=== PATIENT | male | born 1965 | race Caucasian/White ===

== ENCOUNTER 2020-01-28 13:43 | Inpatient (IN) | payer OTHER ==
[~2020-01-28] VITALS: Ht 177.8 cm; Wt 72.1 kg
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
[2020-01-28] MEDS ORDERED: MORPHINE SULFATE INJ 2 MG/ML DISP.SYRIN ONE (14:54)
[2020-01-28] MEDS ORDERED: MORPHINE SULFATE INJ 4 MG/ML DISP.SYRIN ONE (14:54)
[2020-01-28] MEDS ORDERED: MORPHINE SULFATE INJ 2 MG/ML DISP.SYRIN IM ONE (15:00)
[2020-01-28 15:56] LABS: BASOPHILS % (AUTO) 0.4 % (0.0-2.0); EOSINOPHILS % (AUTO) 1.5 % (0.0-6.0); HEMATOCRIT 41 % (39-51); HEMOGLOBIN 13.4 g/dL (13.5-17.5); LYMPHOCYTES # (AUTO) 0.9 /CMM (0.8-4.8); LYMPHOCYTES % (AUTO) 10.2 % (20.0-44.0); MEAN CORPUSCULAR HGB CONC 33 g/dl (31.0-36.0); MEAN CORPUSCULAR VOLUME 88 fL (80-96); MONOCYTES # (AUTO) 0.4 /CMM (0.1-1.30); MONOCYTES % (AUTO) 4.8 % (2.0-12.0); NEUTROPHILS # (AUTO) 7.2 /CMM (1.8-8.9); NEUTROPHILS % (AUTO) 83.1 % (43.0-81.0); PLATELET COUNT (AUTO) 311 /CMM (150-450); RED BLOOD CELL COUNT(AUTO) 4.63 MIL/uL (4.5-6.0); WHITE BLOOD COUNT (AUTO) 8.6 K/uL (4.3-11.0)
[2020-01-28 16:58] LABS: CREATININE 1.1 mg/dL (0.6-1.3)
--- NOTE | 2020-01-28 18:15 | NUR ---
SPOKE WITH HAYLEE [employer] CASE FOR CLINICAL INFORMATION.
--- NOTE | 2020-01-28 18:25 | NUR ---
CALLED NURSING SUP FOR BED
[2020-01-28] MEDS ORDERED: ONDANSETRON HCL/PF 4 MG/2 ML VIAL IVP PRN (18:30)
[2020-01-28] MEDS ORDERED: ACETAMINOPHEN 325 MG TABLET PO PRN (18:30)
[2020-01-28] MEDS ORDERED: Z GUARD REMEDY 2 OZ OINT TP PRN (18:30)
[2020-01-28] MEDS ORDERED: MAG HYDROX/AL HYDROX/SIMETH 30 ML UDC PO PRN (18:30)
[2020-01-28] MEDS ORDERED: MAGNESIUM HYDROXIDE 30 ML UDC PO PRN (18:30)
--- NOTE | 2020-01-28 20:26 | NUR ---
REPORT GIVEN TO HELEN PERSAUD FOR CHEL.
[2020-01-28 20:45] VITALS: BP 127/72
--- NOTE | 2020-01-28 20:45 | NUR ---
RN ADMITTING NOTES: RECEIVED PATIENT FROM ER VIA GURNEY; ADMITTING DIAGNOSIS OF HIP FRACTURE AND COVID +, PATIENT AWAKE, ALERT AND ORIENTED X4 IN NO S/SX OF ACUTE DISTRESS AT THIS TIME. NO SOB NOTED. PATIENT'S BREATHING IS EVEN AND UNLABORED. PATIENT IS RA TOLERATING WELL.SATURATING 97% AT THE MOMENT. PATIENT ON TELE MONITORING READING SINUS RHYTHM WITH HR 90S. NOTED IV SITE ON L FA; GAUGE18,FLUSHING AND PATENT , SALINE LOCKED. NO S/S OF INFECTION OR INFILTRATION. SKIN ASSESSMENT DONE, NOTED REDNESS ON BILATERAL CHEST . PICTURE TAKEN AND PLACED IN CHART. PATIENT KEPT CLEAN , DRY AND COMFORTABLE.SAFETY MEASURES HAVE BEEN PROVIDED AND IMPLEMENTED. PATIENT BED ALARM IS ON. HEAD OF BED ELEVATED. BED IS LOCKED, IN LOWEST POSITION AND SIDE RAILS UP. CALL LIGHT WITHIN REACH OF THE PATIENT. ISOLATION PRECAUTIONS IN PLACE. WILL CONTINUE TO MONITOR AND REASSESS FOR ANY CHANGES. WILL ATTEND TO ALL MD ADMITTING ORDERS.
--- NOTE | 2020-01-28 20:54 | NUR ---
PT TRANSPORTED TO UNIT ON GURNEY WITH EMT AND RN AT BEDSIDE W/ SCLA PROTOCOL. NAD NOTED DURING TRASNPORT.
[2020-01-28] MEDS: ENOXAPARIN SODIUM 40 MG/0.4 ML DISP.SYRIN SQ SCH (21:00)
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
[2020-01-29] VITALS: BP 123/61
--- NOTE | 2020-01-29 02:00 | NUR ---
RN NOTES CALLED MARY YEH AND INFORMED HIM THAT PER VTE RISK ASSESSMENT PT IS AT >5, VERIFIED IF DVT PUMP WOULD BE ORDERED AT THIS TIME, INFORMED PT'S BACKGROUND AND ADMITTING DX OF HIP FRACTURE. HE SAID TO PUT ON HOLD AT THIS TIME. SERVICE UNIT OPERATOR OIL WELL MADE AWARE.
[2020-01-29 04:00] VITALS: BP 136/76
[2020-01-29 06:19] LABS: BASOPHILS % (AUTO) 0.6 % (0.0-2.0); HEMATOCRIT 38 % (39-51); HEMOGLOBIN 12.6 g/dL (13.5-17.5); LYMPHOCYTES # (AUTO) 1.4 /CMM (0.8-4.8); LYMPHOCYTES % (AUTO) 20.6 % (20.0-44.0); MEAN CORPUSCULAR HGB CONC 33 g/dl (31.0-36.0); MEAN CORPUSCULAR VOLUME 87 fL (80-96); MONOCYTES # (AUTO) 0.6 /CMM (0.1-1.30); MONOCYTES % (AUTO) 8.6 % (2.0-12.0); NEUTROPHILS # (AUTO) 4.6 /CMM (1.8-8.9); NEUTROPHILS % (AUTO) 69.2 % (43.0-81.0); PLATELET COUNT (AUTO) 283 /CMM (150-450); RED BLOOD CELL COUNT(AUTO) 4.39 MIL/uL (4.5-6.0); WHITE BLOOD COUNT (AUTO) 6.6 K/uL (4.3-11.0)
--- NOTE | 2020-01-29 06:34 | NUR ---
RN CLOSING NOTES PATIENT REMAINS IN ROOM IN NO SIGNS OF RESPIRATORY DISTRESS. PATIENT SATURATING 98% on RA. VITAL SIGNS WNL. SAFETY PRECAUTIONS IN PLACE AND COMFORT MEASURES RENDERED. BED IN LOWEST POSITION, CALL LIGHT WITHIN REACH, BREAKS ON, SIDE RAILS UP. ALL NEEDS ATTENDED, MEDICATIONS GIVEN SCHEDULED AND ORDERED ; SHIFT ASSESSMENT/SKIN CARE DONE. PATIENT KEPT CLEAN AND DRY. WILL ENDORSE TO INCOMING SHIFT FOR CHEL.
[2020-01-29 07:10] LABS: ALBUMIN 3.1 g/dL (3.4-5.0); BILIRUBIN,TOTAL 0.5 mg/dL (0.2-1.0); CALCIUM, SERUM 8.6 mg/dL (8.5-10.1); MAGNESIUM 2.3 mg/dL (1.8-2.4); PHOSPHORUS 3.2 mg/dL (2.5-4.9); POTASSIUM 4.4 mmol/L (3.5-5.1); TOTAL PROTEIN, SERUM 7.5 g/dL (6.4-8.2)
[2020-01-29 07:37] LABS: THYROID STIMULATING HORMONE 1.702 uIU/mL (0.358-3.74)
[2020-01-29 08:00] VITALS: BP 119/71
--- NOTE | 2020-01-29 08:00 | NUR ---
MAPPING EDITOR OPENING NOTES Received Patient resting in bed. A/O x 4. VS stable with no acute distress. Breathing even and unlabored on room air with no respiratory distress. Patient stated 6/10 pain on right hip. Will intervene as ordered. Telemonitor in place and patent reading SR with HR-61. 18g PIV on LFA clean, intact, patent and flushing well. Safety precautions in place. Bed locked and set to lowest position with side rails x 2 up. All needs rendered at this time. Call light within reach. Will continue to monitor.
[2020-01-29] MEDS: MORPHINE SULFATE INJ 2 MG/ML DISP.SYRIN IV PRN ×2 (10:55→15:35)
[2020-01-29 12:18] VITALS: BP 113/65
--- NOTE | 2020-01-29 12:27 | NUR ---
Patient is alert,lives locally alone. He was ambulatory and physically active prior to admission. Hip surgery is pending per ortho recommendation due to COVID-19 + result. Case mgt will f/u for any dc needs post op. Addendum: 01/29/20 at 1227 by JASSI METZ RN Amended: Links added.
[2020-01-29 16:00] VITALS: BP 114/69
--- NOTE | 2020-01-29 18:44 | NUR ---
WINCH TRUCK OPERATOR CLOSING NOTES Patient resting in bed. A/O x 4. VS stable with no acute distress. Breathing even and unlabored on room air with no respiratory distress. Administered Morphine 2mg IVP at 1535 for Right Hip pain level of 9/10. Patient stated improved pain management. Will endorse to oncoming shift. Telemonitor in place and patent reading SR with HR-80. 18g PIV on LFA clean, intact, patent and flushing well. Safety precautions in place. Bed locked and set to lowest position with side rails x 2 up. All needs rendered at this time. Call light within reach. Will endorse plan of care to oncoming shift.
--- NOTE | 2020-01-29 19:30 | NUR ---
RN NOTES RECEIVED PT. AWAKE ON BED, A/OX4, SR ON TELE MONITOR HR-72, NOT IN DISTRESS, DENIES PAIN, NO SOB , CALL LIGHT WITHIN REACH, SIDERAILSUPX2, CONTINUE TO MONITOR
[2020-01-29 20:00] VITALS: BP 115/72
--- NOTE | 2020-01-29 20:45 | NUR ---
RN NOTES DR. LAYTON REAL, CALLED AND GAVE A TELEPHONE ORDER TO PUT PT. NPO AFTER 08AM , ORDER NOTED AND CARRIED OUT
[2020-01-29] MEDS: ENOXAPARIN SODIUM 40 MG/0.4 ML DISP.SYRIN SQ SCH (21:00)
--- NOTE | 2020-01-29 21:42 | NUR ---
RN NOTES PT. MIGHT HAVE SURGERY TOMORROW, GOT AN ORDER FRO DR[facility], ORDER NOTED AND CARRIED OUT
--- NOTE | 2020-01-29 22:00 | NUR ---
RN NOTES INFORMED PT FOR POSSIBLE, SURGERY TOMORROW, PT. REFUSED EVENING CARE, CHARGE NURSE MADE AWARE
[2020-01-30] VITALS: BP 126/68
[2020-01-30 04:00] VITALS: BP 126/74
[2020-01-30] MEDS: MORPHINE SULFATE INJ 2 MG/ML DISP.SYRIN IV PRN ×3 (06:12→21:24)
--- NOTE | 2020-01-30 06:12 | NUR ---
RN NOTES COMPLAINED OF RIGHT HIP PAIN- MORPHINE 2 MG IV GIVEN ORDERED, V/S STABLE
--- NOTE | 2020-01-30 06:24 | NUR ---
RN NOTES KITCHEN CALLED FOR EARLY BREAKFAAST, AWAKE,. MORNING CARE RENDERED, EMILY LIGHT WITHIN REACH, SIDERAILSUPX2, PT, NEED ATTENDED
[2020-01-30 08:00] VITALS: BP 128/74
--- NOTE | 2020-01-30 08:05 | NUR ---
RN RAJ OPENING NOTE RECEIVED PT IN BED ALERT AND AWAKE, ALERT AND ORIENTED X4. PT IS ON ROOM AIR SATURATING AT 95% AT THIS TIME. PT IS ON TELE MONITORING WITH SINUS RHYTHM HR 90 CURRENTLY. PT IS ON NPO STATUS AFTER 0800 TODAY FOR POSSIBLE HIP SURGERY. PT AWARE OF SURGERY AND CONSENT FORM SIGNED AND IN CHART. PT HAS A LEFT FA 18' INTACT, PATENT AND FLUSHED WELL. V/S WITHIN NORMAL RANGE WITH NO ACUTE DISTRESS NOTED AT THIS TIME. PT ON COVID 19 PRECAUTIONS PER DIAGNOSIS. PT IS FILL CODE. CALL LIGHT WITHIN REACH AND FUNCTIONING. BED LOCKED AND IN LOWEST POSITION. WILL CONTINUE TO MONITOR AND ASSESS PT.
--- NOTE | 2020-01-30 10:00 | NUR ---
RN RJA NOTE FACE TIMED WITH ANESTHESIOLOGIST DR. LOJA. PT WAS INFORMED ABOUT DIFFERENT SURGERY OPTIONS. PT VERBALIZED UNDERSTANDING OF THE DIFFERENT OPTIONS GIVEN. PT IS NOT READY TO MAKE A DECISION AT THIS TIME. WILL CONTINUE TO MONITOR AND ASSES PT.
[2020-01-30 12:00] VITALS: BP 114/72
--- NOTE | 2020-01-30 14:25 | NUR ---
PT SPOKE TO DR. DICKERSON. PT DECIDED NOT TO DO SURGERY TODAY. INFORMED DR. NICHOLE. RESUMED REGULAR DIET.
[2020-01-30 16:00] VITALS: BP 111/68
[2020-01-30] MEDS: HYDROCODONE/APAP 5/325MG TABLET PO PRN (17:11)
--- NOTE | 2020-01-30 18:28 | NUR ---
RN RAJ CLOSING NOTE PT IS CURRENTLY IN BED AWAKE, ALERT AND ORIENTED X4. PT PREFERS TO BE ADDRESSED SHENG (WILL ENDORSE TO NEXT SHIFT NURSE). PT IS ON ROOM AIR SATURATING AT 99% AT THIS TIME. PT'S LEFT FOREARM 18' INTACT, PATENT AND FLUSHED WELL. PT IS IN STABLE CONDITION WITH NO ACUTE DISTRESS NOTED AT THIS TIME. V/S WITHIN NORMAL RANGE. PT IS ON TELE MONITORING WITH SINUS RHYTHM HR 74 AT THIS TIME. ALL NEEDS MET AND ATTENDED TO WITH HELP OF DIET TECHNICIAN REGISTERED. RECEIVED CALL FROM [employer] (MARCIANO) WHO INFORMED ME THAT PT WAS POSITIVE FOR MRSA OF THE RIGHT NARES. INFORMED AND FOLLOWED ORDER FOR BACTERIUM OINTMENT. ALL PRECAUTIONS FOLLOWED AND IMPLEMENTED FOR COVID 19 AND MRSA OF THE RIGHT NARES. ALL NEEDS MET AND ATTENDED TO WITH HELP OF DIET TECHNICIAN REGISTERED. CALL LIGHT WITHIN REACH AND FUNCTIONING. BED LOCKED AND IN LOWEST POSITION. WILL ENDORSE TO NEXT SHIFT NURSE FOR CHEL.
[2020-01-30 20:00] VITALS: BP 123/75
--- NOTE | 2020-01-30 20:00 | NUR ---
TABLE HAND OPENING NOTES RECEIVED PT AAOX4 SITTING IN BED. ON DROPLET ON CONTACT PRECAUTION. PT IS ON ROOM AIR WITH 02 SAT AT 98% WITH NO SIGNS OR SYMPTOMS OF RESPIRATORY DISTRESS. NSR ON TELE ON TELE MONITOR WITH A PULSE RATE OF 77. POSITIVE PEDAL PULSES BILATERALLY. 18 G LEFT FOREARM IS PATENT AND FLUSHED WITH NO S/S OF INFILTRATION OR INFECTION. BED IS IN LOWEST AND LOCKED POSITION. WITH CALL JONES IN REACH AND URINAL AT BEDSIDE. WILL CONTINUE TO MONITOR.
[2020-01-30] MEDS: ENOXAPARIN SODIUM 40 MG/0.4 ML DISP.SYRIN SQ SCH (20:57)
--- NOTE | 2020-01-30 21:35 | NUR ---
AUTOMOTIVE SERVICE CONSULTANT NOTES PT COMPLAINS OF 9/10 RIGHT HIP PAIN. ADMINISTERED MORPHINE SULFATE 2MG. WILL CONTINUE TO MONITOR.
[2020-01-31] VITALS: BP 114/63
[2020-01-31] MEDS: MORPHINE SULFATE INJ 2 MG/ML DISP.SYRIN IV PRN ×3 (03:55→21:30)
[2020-01-31 04:00] VITALS: BP 109/64
--- NOTE | 2020-01-31 04:13 | NUR ---
BOBBIN WINDER NOTES PT IS CONTINUING TO HAVE R HIP PAIN WHICH HE RATES AN 9/10. PEDAL PULSES ARE PRESENT WITH NO SIGNS OF BLEEDING OR INCREASED SWELLING. ADMINISTERED 2MG OF MORPHINE IVP PRN AND WILL CONTINUE TO MONITOR.
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
--- NOTE | 2020-01-31 07:45 | NUR ---
SERVICE CENTER SPECIALIST OPENING NOTE RECEIVED PT IN BED, AWAKE, ALERT AND ORIENTED X4. PT ON ROOM AIR SATURATING AT 99% AT THIS TIME. PT'S V/S WITHIN NORMAL RANGE. PT IS STABLE WITH NO SOB OR ACUTE DISTRESS NOTED. PT IS ON TELE MONITORING WITH SINUS RHYTHM HR 82 AT THIS TIME. PT IS FULL CODE WITH COVID 19 AND MRSA OF THE RIGHT NARES PRECAUTIONS FOLLOWED AND IMPLEMENTED AT ALL TIMES. PT'S IV 18' INTACT, PATENT AND FLUSHED WELL. CALL LIGHT WITHIN REACH AND FUNCTIONING. BED LOCKED AND IN LOWEST POSITION. WILL CONTINUE TO MONITOR AND ASSESS PT.
[2020-01-31 08:00] VITALS: BP 130/82
[2020-01-31 08:23] LABS: BASOPHILS % (AUTO) 0.3 % (0.0-2.0); EOSINOPHILS % (AUTO) 2.1 % (0.0-6.0); HEMATOCRIT 41 % (39-51); HEMOGLOBIN 13.5 g/dL (13.5-17.5); LYMPHOCYTES # (AUTO) 1.4 /CMM (0.8-4.8); LYMPHOCYTES % (AUTO) 21.9 % (20.0-44.0); MEAN CORPUSCULAR HGB CONC 33 g/dl (31.0-36.0); MEAN CORPUSCULAR VOLUME 87 fL (80-96); MONOCYTES # (AUTO) 0.5 /CMM (0.1-1.30); MONOCYTES % (AUTO) 7.6 % (2.0-12.0); NEUTROPHILS # (AUTO) 4.4 /CMM (1.8-8.9); NEUTROPHILS % (AUTO) 68.1 % (43.0-81.0); PLATELET COUNT (AUTO) 275 /CMM (150-450); RED BLOOD CELL COUNT(AUTO) 4.67 MIL/uL (4.5-6.0); WHITE BLOOD COUNT (AUTO) 6.4 K/uL (4.3-11.0)
[2020-01-31 08:28] LABS: CALCIUM, SERUM 8.7 mg/dL (8.5-10.1); CREATININE 0.8 mg/dL (0.6-1.3); PHOSPHORUS 2.8 mg/dL (2.5-4.9); POTASSIUM 4.1 mmol/L (3.5-5.1)
[2020-01-31] MEDS: MUPIROCIN OINT 2% 22 GM TUBE NS SCH ×2 (08:58→21:04)
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
[2020-01-31 12:00] VITALS: BP 104/64
[2020-01-31 16:00] VITALS: BP 118/78
--- NOTE | 2020-01-31 18:55 | NUR ---
TAR MAN/RAJ CLOSING NOTE PT IS CURRENTLY IN BED, AWAKE, ALERT AND ORIENTED X4. PT IS ON ROOM AIR SATURATING AT 99% AT THIS TIME. PT HAS A LEFT HAND 18 INTACT, PATENT AND FLUSHED WELL. PCR STILL PENDING. PT ON TELE MONITORING WITH SINUS RHYTHM HR 73 NOTED AT THIS TIME. PT IS IN STABLE CONDITION AT THIS TIME. PT IS FULL CODE. ALL SAFETY PRECAUTIONS TAKEN AND IMPLEMENTED AT ALL TIMES. CALL LIGHT WITHIN REACH AND FUNCTIONING. WILL ENDORSE TO NEXT SHIFT NURSE FOR CHEL.
--- NOTE | 2020-01-31 19:40 | NUR ---
RN NOTE RECEIVED PT IN BED, AO X 4. PATIENT IN NO S/SX OF ACUTE DISTRESS AT THIS TIME. NO SOB NOTED. PATIENT'S BREATHING IS EVEN AND UNLABORED WITH EQUAL RISE OF THE CHEST, SATURATING 99% ON ROOM AIR. PATIENT ON TELE MONITOR READING SR, HR IS 92. NOTED IV SITE ON THE LEFT HAND G18; PATENT AND FLUSHING WELL, NO S/S OF INFECTION OR INFILTRATION. PATIENT HAS URINAL AT BEDSIDE, MODERATE AMOUNT OF CLEAR DIANE URINE NOTED. SAFETY MEASURES IMPLEMENTED PER PROTOCOL. PATIENT BED ALARM IS ON. HEAD OF BED ELEVATED. BED IS LOCKED, IN LOWEST POSITION AND SIDE RAILS UP. CALL LIGHT WITHIN REACH OF THE PATIENT. WILL CONTINUE TO MONITOR AND REASSESS FOR ANY CHANGES.
[2020-01-31 20:00] VITALS: BP 120/69
[2020-01-31] MEDS: ENOXAPARIN SODIUM 40 MG/0.4 ML DISP.SYRIN SQ SCH (21:07)
--- NOTE | 2020-01-31 23:05 | NUR ---
NEGATIVE COVID PCR RESULT NOTED NEGATIVE COVID PCR RESULT, RESULTED AT 01/31/2020 1801. TELEPHONE CALL TO LAB TO VERIFY, RAJ NOT NOTIFIED OF RESULT. SPOKE WITH ANTIONE PERALTA, CONFIRMED NEGATIVE RESULT AND OF DATE AND TIME. BLAIRE CERVANTES AND VICKI PEREZ NOTIFIED. Addendum: 02/01/20 at 0052 by REFUGIO SAMANIEGO RN DR VERIDN RESPONDED AND SAID OK TO TRANSFER TO [facility]. BLAIRE CERVANTES MADE AWARE.
[2020-02-01] VITALS: BP 128/83
--- NOTE | 2020-02-01 00:47 | NUR ---
RN NOTED NOTED PATIENT TELE LEADS ARE OUT, PATIENT REFUSED TO PUT THEM BACK ON AND SAYS IT BOTHERS HIM. TALENT DEVELOPMENT COORDINATOR MADE AWARE. WILL TRY TO PUT THEM BACK LATER.
[2020-02-01 04:00] VITALS: BP 123/77
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
--- NOTE | 2020-02-01 06:00 | NUR ---
RN NOTE PATIENT STABLE ON ROOM AIR SATURATING AT 97%, IN NO ACUTE DISTRESS AT THIS TIME. IV SITE ON THE LEFT HAND G18; PATENT AND FLUSHING WELL. PATIENT TRANSFERRED TO TELE ROOM 319 VIA MEDICAL BED. ALL PATIENT BELONGINGS TRANSFERRED WITH THE PATIENT. PATIENT SAFETY WAS MAINTAINED, LAMONTE CERVANTES RECEIVED THE PATIENT AND WILL CONTINUE CARE.
--- NOTE | 2020-02-01 07:33 | NUR ---
MS RN: END OF SHIFT REPORT Patient in bed, awake, A/O x4. Transferred by bed from RAJ. Skin intact, limited movement in RLE d/t right hip pain, offered pain medication but refused, per patient only when he move. NWB RLE per Ortho. Pending possible surgery, Covid 19 resulted negative 01/30/20. Cleared by Cardio for surgery. Sinus Tach in the Tele monitor. Personal belongings reviewed with AMANDA Lai. Fall precaution maintained. Endorsed to HELEN Baumann.
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
[2020-02-01 08:00] VITALS: BP 100/56
[2020-02-01] MEDS: MUPIROCIN OINT 2% 22 GM TUBE NS SCH ×2 (09:07→20:28)
[2020-02-01 09:49] LABS: BASOPHILS % (AUTO) 0.5 % (0.0-2.0); EOSINOPHILS % (AUTO) 2.1 % (0.0-6.0); HEMATOCRIT 42 % (39-51); HEMOGLOBIN 13.9 g/dL (13.5-17.5); LYMPHOCYTES % (AUTO) 16.8 % (20.0-44.0); MEAN CORPUSCULAR HGB CONC 33 g/dl (31.0-36.0); MEAN CORPUSCULAR VOLUME 86 fL (80-96); MONOCYTES # (AUTO) 0.4 /CMM (0.1-1.30); MONOCYTES % (AUTO) 6.7 % (2.0-12.0); NEUTROPHILS # (AUTO) 4.5 /CMM (1.8-8.9); NEUTROPHILS % (AUTO) 73.9 % (43.0-81.0); PLATELET COUNT (AUTO) 311 /CMM (150-450); RED BLOOD CELL COUNT(AUTO) 4.89 MIL/uL (4.5-6.0); WHITE BLOOD COUNT (AUTO) 6.1 K/uL (4.3-11.0)
[2020-02-01 10:06] LABS: CALCIUM, SERUM 8.8 mg/dL (8.5-10.1); CREATININE 0.9 mg/dL (0.6-1.3); PHOSPHORUS 3.3 mg/dL (2.5-4.9); POTASSIUM 4.2 mmol/L (3.5-5.1)
--- NOTE | 2020-02-01 13:50 | NUR ---
M/S RN NOTES COVID19 TEST SWAB COLLECTED ORDERED. DROPPED OFF TO LAB
--- NOTE | 2020-02-01 14:12 | NUR ---
M/S RN NOTES PT SEEN AND EVAL BY DR. NICHOLE, WILL WAIT FOR COVID RESULT PRIOR TO SURGERY PLAN. PT VERBALIZED UNDERSTANDING.
--- NOTE | 2020-02-01 15:20 | NUR ---
M/S RN NOTES PT MOVED TO ROOM 317. ALL BELONGINGS TRANSFERRED.
[2020-02-01 16:00] VITALS: BP 111/66
--- NOTE | 2020-02-01 18:36 | NUR ---
M/S RN CLOSING NOTES PT AAOX4. TOLERATING RA>92% O2 SAT WITHOUT ACUTE RESPIRATORY DISTRESS. PT STATED LBM 8/12 WITH URGE, PT REQUESTED TO TAKE MEDICATION AT NIGHT TIME INSTEAD, URINE [id number] COLOR VIA URINAL. PT DENIES PAIN AND DISCOMFORT. SKIN WARM TO TOUCH AND DRY. RIGHT HIP ON NWB, WAITING FOR COVID19 RESULT BEFORE PLANNING SURGERY, CLEARED BY CARDIO. IV SITE AT LEFT FA #18, PATENT IN FLUSHING, NO S/SX OF INFILTRATION, H/L. BED IN LOW LOCKED POSITION, SRX2 UP FOR SAFETY, CALL LIGHT WITHIN REACH. ALL CONCERNS ATTENDED. ENDORSED CARE TO NEXT SHIFT.
--- NOTE | 2020-02-01 19:30 | NUR ---
rn notes: received rpeort from radha woodson. pt isolation, r/o covid, ppe utilized with n95 mask and faceshield. p[t previously covid positive, pcr and rapid covid test came back negative, id and cardio ordered repeat covid pcr test, pending result. met with pt in the room, pt a/o x3 on ra respirations even and unlabored. iv access patent and flushing well, on hl. discussed plan of care to pt, pt agree and understand. awaiting ortho sx, pending covid result. 2 apple juice and jell o provided to pt as snack for tonight. safety precautions for fall initiated, call light in reach, will continue monitoring pt.,
[2020-02-01 20:00] VITALS: BP 107/62
[2020-02-01] MEDS: ENOXAPARIN SODIUM 40 MG/0.4 ML DISP.SYRIN SQ SCH (20:13)
[2020-02-01] MEDS: MORPHINE SULFATE INJ 2 MG/ML DISP.SYRIN IV PRN (21:31)
--- NOTE | 2020-02-01 21:31 | NUR ---
prn morphine: pt c/o 01/25 right and left hip pain requesting for morphine, prn morphine 2mg ivp administered to pt at this time. will continue to monitor and reassess pt.
[2020-02-02] VITALS: BP 115/72
--- NOTE | 2020-02-02 06:30 | NUR ---
rn notes: provided bed bath to pt, offered pain medications, but pt refused. also pt refused wearing hospital gown, stated he only opted for top sheet as the room is really hot. ac on.
--- NOTE | 2020-02-02 07:08 | NUR ---
End of shift report: Pt remains on ra, respirations even and unlabored. Prn morphine administered for c/o pain. Iv access remains patent and flushing well, on hl, no s/s of iv infiltration noted. Urinal within reach. PLAN OF CARE: pending pcr covid result, ortho-right hip im rodding- date and time to be determined. Continue isolation per id. Vs remains stable, needs attended. Safety precautions for fall remains engaged, call light in reach, will endorse to day rn for continuity of care.
--- NOTE | 2020-02-02 07:10 | NUR ---
rn notes: pt refused blood draw, education provided to pt, informed supercharge repair supervisor to please come back after breakfast for blood draw.
--- NOTE | 2020-02-02 07:30 | NUR ---
MS/RN OPENING NOTES Received patient resting in bed, A&O x 4. Denies any pain and discomfort at this time. Breathing even and non-labored on RA, no SOB noted. No cardiac distress noted. IV access noted on L FA #18, patent and intact, and flushing well. No s/s of infection, infiltration, or bleeding on site noted. R hip on NWB. Sensation from all peripheral extremities intact. Fall precautions maintained. Instructed patient to use call light when in need of assistance. Will continue to monitor for any changes of condition.
[2020-02-02 08:00] VITALS: BP 108/69
[2020-02-02] MEDS: MUPIROCIN OINT 2% 22 GM TUBE NS SCH ×2 (09:01→21:13)
--- NOTE | 2020-02-02 12:41 | NUR ---
MS/RN NOTES Notified Courey of patient's second covid PCR results (negative), still waiting for date and a time for patient's R hip IM rodding surgery.
--- NOTE | 2020-02-02 13:15 | NUR ---
MS/RN NOTES Ping spoke with patient regarding surgery, states patient agrees to surgery tomorrow. Ordered NPO after midnight at 02/03/2020. Order carried out.
[2020-02-02 15:19] LABS: BASOPHILS # (AUTO) 0.1 /CMM (0.0-0.2); BASOPHILS % (AUTO) 1.4 % (0.0-2.0); HEMATOCRIT 42 % (39-51); HEMOGLOBIN 13.8 g/dL (13.5-17.5); LYMPHOCYTES # (AUTO) 1.1 /CMM (0.8-4.8); LYMPHOCYTES % (AUTO) 19.4 % (20.0-44.0); MEAN CORPUSCULAR HGB CONC 33 g/dl (31.0-36.0); MEAN CORPUSCULAR VOLUME 87 fL (80-96); MONOCYTES # (AUTO) 0.5 /CMM (0.1-1.30); MONOCYTES % (AUTO) 8.2 % (2.0-12.0); PLATELET COUNT (AUTO) 320 /CMM (150-450); RED BLOOD CELL COUNT(AUTO) 4.85 MIL/uL (4.5-6.0); WHITE BLOOD COUNT (AUTO) 5.8 K/uL (4.3-11.0)
[2020-02-02 15:31] LABS: CALCIUM, SERUM 9.1 mg/dL (8.5-10.1); CREATININE 0.9 mg/dL (0.6-1.3); MAGNESIUM 2.4 mg/dL (1.8-2.4); PHOSPHORUS 3.6 mg/dL (2.5-4.9); POTASSIUM 4.8 mmol/L (3.5-5.1)
[2020-02-02 15:50] LABS: C-REACTIVE PROTEIN 6.3 mg/dL (0.0-0.9)
[2020-02-02 17:59] VITALS: BP 130/66
--- NOTE | 2020-02-02 19:00 | NUR ---
MS/RN CLOSING NOTES Patient resting in bed, A&O x 4. Offered pain medication throughout shift, patient refuses despite some discomfort on the right hip. Breathing even and non-labored on RA. No respiratory or cardiac distress noted. IV access noted on L FA #18, patent and intact, and flushing well. No s/s of infection, infiltration, or bleeding on site noted. R hip on NWB. Sensation from all peripheral extremities intact. Fall precautions maintained. Consents signed for procedure tomorrow, will be NPO after midnight. Will endorse overnight stocker nurse.
--- NOTE | 2020-02-02 19:10 | NUR ---
MS/RN OPENING NOTES: Received patient resting in bed, A&Ox4. Verbally responsive and able to make needs known. Breathing even and non-labored on RA, no SOB noted. No cardiac distress noted. No complains of pain and discomfort at this time. IV access located on L FA #18g, patent and intact, and flushing well. R hip on NWB. Sensation from all peripheral extremities intact. Safety measures and fall precautions are in place. Bed in low, locked position with SR up x2. Call light within reach. Will continue to monitor for any changes of condition.
[2020-02-02 20:00] VITALS: BP 111/64
[2020-02-02 20:59] VITALS: BP 111/64
[2020-02-02] MEDS: ENOXAPARIN SODIUM 40 MG/0.4 ML DISP.SYRIN SQ SCH (21:00)
--- NOTE | 2020-02-02 21:00 | NUR ---
MS/RN NOTES: INFORMED ANDRES, WEED SCIENCE RESEARCH TECHNICIAN BARBER ABOUT PT'S SX RIGHT HIP IM RODDING TOMORROW AT 0730. PER ANDRES HOLD LOVENOX FOR TONIGHT. CHARGE NURSE AWARE. NON ADMINISTERED, NO S/S OF BLEEDING. WILL CONTINUE TO MONITOR ACCORDINGLY.
[2020-02-02 23:00] LABS: APPEARANCE,URINE CLEAR (CLEAR); BILIRUBIN,URINE NEGATIVE (NEGATIVE); BLOOD, URINE NEGATIVE Ery/uL (NEGATIVE); COLOR,URINE YELLOW (YELLOW); KETONES,URINE NEGATIVE (NEGATIVE); LEUKOCYTE ESTERASE ,URINE NEGATIVE (NEGATIVE); NITRITE, URINE NEGATIVE (NEGATIVE); PROTEIN,URINE NEGATIVE (NEGATIVE); UGLUCOSE NEGATIVE (NEGATIVE); UROBILINOGEN,URINE 0.2 EU/dL (0.2)
[2020-02-03] VITALS (12 sets, daily range): BP systolic 97–119; BP diastolic 51–69
[2020-02-03 05:07] LABS: HIV SCRN 4G wRFX Non Reactive (Non Reactive)
[2020-02-03 06:13] LABS: *SPE A/G RATIO 0.8 (0.7-1.7); *SPE ALPHA-1-GLOBULIN 0.4 g/dL (0.0-0.4); *SPE ALPHA-2-GLOBULIN 0.8 g/dL (0.4-1.0); *SPE BETA GLOBULIN 0.9 g/dL (0.7-1.3); *SPE GLOBULIN, TOTAL 3.9 g/dL (2.2-3.9); *SPE M-SPIKE Not Observed g/dL (Not Observed); *SPEGAMMA GLOBULIN 1.8 g/dL (0.4-1.8)
[2020-02-03] MEDS ORDERED: BACITRACIN 50000 UNITS/VIAL ONE (06:56)
[2020-02-03] MEDS ORDERED: BUPIVACAINE 0.5 % PF 150 MG/30 ML VIAL ONE (06:56)
[2020-02-03] MEDS ORDERED: ANESTHESIA TRAY IN PYXIS 1 EA TRAY MC ONE (06:56)
[2020-02-03] MEDS ORDERED: HYDROMORPHONE INJ 2 MG/ML DISP.SYRIN ONE (07:12)
[2020-02-03] MEDS ORDERED: MIDAZOLAM HCL 2 MG/2ML VIAL ONE (07:12)
--- NOTE | 2020-02-03 07:20 | NUR ---
MS/RN NOTES: PT LEFT VIA GURNEY FOR SURGERY. VS WNL. INCOMING NURSE AWARE. MAINTAINED NPO STATUS SINCE MIDNIGHT.
--- NOTE | 2020-02-03 07:39 | NUR ---
MS/RN CLOSING NOTES Patient remains in bed, A&O x 4. No complains of pain. Breathing even and non-labored on RA. No respiratory or cardiac distress noted. IV access noted on L FA #18, patent and intact, and flushing well. Right Hip IM Rodding Sx. scheduled today at 0730. Consents and Checklist signed and in the chart. Patient refused blood draws for lab saying "I don't have enough blood for surgery". Sensation from all peripheral extremities intact. Fall precautions maintained. Safety measures in place, Will endorse to Connie CERVANTES, for CHEL.
[2020-02-03] MEDS ORDERED: FENTANYL PF 100MCG/2ML AMPUL ONE (07:49)
--- NOTE | 2020-02-03 08:00 | NUR ---
MS RN NOTES PATIENT IN OR FOR SCHEDULED SURGERY.
--- NOTE | 2020-02-03 10:00 | NUR ---
MS RN NOTES PATIENT RETURNED FROM OR IN STABLE CONDITION. S/P IM RODDING. WILL CONTINUE TO MONITOR.
[2020-02-03] MEDS: MUPIROCIN OINT 2% 22 GM TUBE NS SCH ×2 (10:31→22:14)
[2020-02-03] MEDS: ANCEF 1 GM/50 ML D5W IV SCH ×4 (15:23→22:51)
--- NOTE | 2020-02-03 18:30 | NUR ---
MS RN NOTES PATIENT IN BED RESTING NO SOB OR ACUTE DISTRESS NOTED. ALL DUE MEDICATIONS ADMINISTERED. ALL NEEDS MET. PATIENT SEEN AMBULATING IN THE HALLWAY WITH PT. PATIENTS PAIN WAS CONTROLLED. PERIPHERAL IV INTACT PATENT. WILL ENDORSE CARE TO PM SHIFT.
--- NOTE | 2020-02-03 20:36 | NUR ---
MS/TELE/RN AT INITIAL ROUNDING AT 1999, RECEIVED PATIENT SITTING AT EDGE OF BED, AWAKE, ALERT, ORIENTED, COMFORTABLE, PAIN LEVEL 4/10, TOLERABLE PER PATIENT, NO DISTRESS NOTED, PATIENT IS S/P IM RODDING OF RT. HIP, DRESSING INTACT, NO SIGN OF BLEEDING NOTED, CALL LIGHT IN REACH. WILL MONITOR.
--- NOTE | 2020-02-03 22:00 | NUR ---
MS/TELE/RN PLS. DISREGARD IV MIDLINE DOCUMENTATION, IT WAS CHARTED FOR OTHER PATIENT.
[2020-02-03] MEDS: HYDROCODONE/APAP 5/325MG TABLET PO PRN (22:18)
--- NOTE | 2020-02-03 23:00 | NUR ---
MS/TELE/RN PATIENT IS SLEEPING, APPEAR COMFORTABLE, BREATHING EVEN AND UNLABORED, CALL LIGHT IN REACH. WILL CONTINUE TO MONITOR.
--- NOTE | 2020-02-04 06:32 | NUR ---
MS/TELE/RN PATIENT IS STILL SLEEPING AT THIS TIME, APPEAR COMFORTABLE, BREATHING EVEN AND UNLABORED, CALL LIGHT IN REACH. WILL CONTINUE TO MONITOR.
[2020-02-04] MEDS: ANCEF 1 GM/50 ML D5W IV SCH ×2 (06:50)
--- NOTE | 2020-02-04 07:15 | NUR ---
MS RN NOTES PATIENT IN BED ALERT ORIENTED X 4. NO ACUTE DISTRESS NOTED. BREATHING UNLABORED. NO SOB NOTED. DENIED PAIN AT THIS TIME. LFA G 18 IV ACCESS PATENT AND INTACT, NO REDNESS, NO SWELLING NOTED. RIGHT HIP DRESSING CLEAN DRY AND INTACT. SAFETY MEASURES IN PLACE. CALL LIGHT WITHIN REACH. WILL CONTINUE TO MONITOR ACCORDINGLY.
[2020-02-04 07:48] LABS: BASOPHILS % (AUTO) 0.3 % (0.0-2.0); EOSINOPHILS % (AUTO) 1.3 % (0.0-6.0); HEMATOCRIT 38 % (39-51); HEMOGLOBIN 12.3 g/dL (13.5-17.5); LYMPHOCYTES # (AUTO) 1.2 /CMM (0.8-4.8); MEAN CORPUSCULAR HGB CONC 33 g/dl (31.0-36.0); MEAN CORPUSCULAR VOLUME 86 fL (80-96); MONOCYTES # (AUTO) 0.5 /CMM (0.1-1.30); MONOCYTES % (AUTO) 7.7 % (2.0-12.0); NEUTROPHILS # (AUTO) 5.1 /CMM (1.8-8.9); NEUTROPHILS % (AUTO) 73.7 % (43.0-81.0); PLATELET COUNT (AUTO) 303 /CMM (150-450); RED BLOOD CELL COUNT(AUTO) 4.35 MIL/uL (4.5-6.0)
[2020-02-04 08:00] VITALS: BP 103/61
[2020-02-04 08:27] LABS: ALBUMIN 2.8 g/dL (3.4-5.0); BILIRUBIN,TOTAL 0.5 mg/dL (0.2-1.0); CALCIUM, SERUM 8.8 mg/dL (8.5-10.1); CREATININE 0.8 mg/dL (0.6-1.3); MAGNESIUM 2.1 mg/dL (1.8-2.4); PHOSPHORUS 2.8 mg/dL (2.5-4.9); POTASSIUM 4.5 mmol/L (3.5-5.1); TOTAL PROTEIN, SERUM 7.4 g/dL (6.4-8.2)
[2020-02-04] MEDS: MUPIROCIN OINT 2% 22 GM TUBE NS SCH (08:48)
[2020-02-04] MEDS ORDERED: ENOXAPARIN SODIUM 40 MG/0.4 ML DISP.SYRIN SQ SCH (09:00)
--- NOTE | 2020-02-04 09:00 | NUR ---
MS RN NOTES PATIENT REFUSED LOVENOX DESPITE OF EXPLANATION OF RISKS AND BENEFITS.
--- NOTE | 2020-02-04 09:10 | NUR ---
MS WET FINISHER NOTES PATIENT VERBALIZED HE WANTS TO GO HOME, DESPITE OF EXPLANATION RISKS AND BENEFITS, VERBALIZED UNDERSTANDING. PATIENT INSISTED ON GOING HOME . DISCHARGE HOME AGAINST MEDICAL ADVICE WITH STABLE VITAL SIGNS. ALERT ORIENTED X 4. NO ACUTE DISTRESS NOTED. BREATHING UNLABORED. NO SOB NOTED. DENIED PAIN AT THIS TIME. IV ACCESS REMOVED, NO REDNESS, NO SWELLING NOTED, NO BLEEDING NOTED. RIGHT HIP DRESSING CLEAN DRY AND INTACT. ALL BELONGINGS ACCOUNTED FOR. PATIENT AMBULATORY WITH FW WALKER AND ABLE TO USE FW WALKER PROPERLY. ASSISTED TO THE LOBBY , DISCHARGE PATIENT IN STABLE CONDITION.
--- NOTE | 2020-02-04 09:10 | NUR ---
MS RN NOTES DR BHARATHI TELLES MADE AWARE PATIENT AMA.
== END 2020-02-04 09:30 | disposition left against medical advice (07) | DRG 308 ==
LOC: ER 14:11 → MEDSG1 20:19 → TELE1 20:25 → TELE 02-01 06:15 → MED 02-01 08:28
PROVIDERS: ADMIT Student in an Organized Health Care Education/Training Program
PROC: 0QS606Z Reposition Right Upper Femur with Intramedullary Internal Fixation Device, Open Approach (ICD-10-PCS; principal; 2020-02-03)
DX: S72.141A Displaced intertrochanteric fracture of right femur, initial encounter for closed fracture (principal); V18.4XXA Pedal cycle driver injured in noncollision transport accident in traffic accident, initial encounter; Y93.89 Activity, other specified; Y92.89 Other specified places as the place of occurrence of the external cause; E44.0 Moderate protein-calorie malnutrition; E86.0 Dehydration; Z68.22 Body mass index [BMI] 22.0-22.9, adult; D64.9 Anemia, unspecified; Z22.322 Carrier or suspected carrier of Methicillin resistant Staphylococcus aureus; F64.9 Gender identity disorder, unspecified; E88.09 Other disorders of plasma-protein metabolism, not elsewhere classified; F32.9 Major depressive disorder, single episode, unspecified; U07.1 COVID-19
CPT/HCPCS: 36415; 71045-TC; 73502; 80048-TC; 80053-TC; 81000-TC; 82728-TC; 83615-TC; 83735-TC; 84100-TC; 84155; 84165; 84443-TC; 85025-TC; 85378-TC; 85730-TC; 86140-TC; 86803; 86850-TC; 87081-TC; 97116-TC; 97530-TC; A6209; A6403; C1713; C9803-CS; G0378; J0690; J1100; J1170; J1650; J1885; J2250; J2270; J2405; J2704; J3010; J3490; J7050; J7060; U0003-CS

== ENCOUNTER 2022-11-02 00:43 | Inpatient (IN) | payer OTHER ==
[~2022-11-02] VITALS: Ht 177.8 cm; Wt 81.2 kg
--- NOTE | 2022-11-02 01:00 | NUR ---
BIBS FROM HOME WITH CC OF SOBXWEEKS, + PENILE SWELLING. PT WAS PRESCRIBED LASIX BUT RUN OUT OF MEDS. STARTED HAVING SOB AGAIN. AXO4. AMBULATORY.
--- NOTE | 2022-11-02 01:05 | NUR ---
URINE SPECIMEN SENT TO LAB
--- NOTE | 2022-11-02 01:06 | NUR ---
DR. PAGAN AT BEDSIDE
--- NOTE | 2022-11-02 01:13 | NUR ---
EKG DONE AT BEDSIDE
--- NOTE | 2022-11-02 01:14 | NUR ---
POWERHOUSE TENDER AT BEDSIDE
[2022-11-02] MEDS ORDERED: FUROSEMIDE 40 MG/4 ML VIAL ONE (01:27)
[2022-11-02] MEDS ORDERED: FUROSEMIDE 40 MG/4 ML VIAL IV ONE (01:30)
--- NOTE | 2022-11-02 01:35 | NUR ---
20G IV STARTED ON R AC. BLOOD COLLECTED SENT TO LAB
[2022-11-02 01:39] LABS: BASOPHILS # (AUTO) 0.1 K/uL (0.0-0.2); EOSINOPHILS % (AUTO) 4.9 % (0.0-6.0); HEMATOCRIT 45 % (39-51); HEMOGLOBIN 14.9 g/dL (13.5-17.5); LYMPHOCYTES # (AUTO) 1.5 K/uL (0.8-4.8); LYMPHOCYTES % (AUTO) 23.2 % (20.0-44.0); MEAN CORPUSCULAR HGB CONC 34 g/dl (31.0-36.0); MEAN CORPUSCULAR VOLUME 89 fL (80-96); MONOCYTES # (AUTO) 0.5 K/uL (0.1-1.30); MONOCYTES % (AUTO) 7.9 % (2.0-12.0); PLATELET COUNT (AUTO) 353 K/uL (150-450); RED BLOOD CELL COUNT(AUTO) 4.99 MIL/uL (4.5-6.0); WHITE BLOOD COUNT (AUTO) 6.3 K/uL (4.3-11.0)
[2022-11-02 01:49] LABS: CALCIUM, SERUM 8.7 mg/dL (8.5-10.1); CARBON DIOXIDE 27 mmol/L (21-32); CHLORIDE 105 mmol/L (98-107); CREATININE 1.5 mg/dL (0.6-1.3); GLUCOSE 118 mg/dL (74-106); SODIUM SERUM 138 mmol/L (136-145); UREA NITROGEN, BLOOD 26 mg/dL (7-18)
[2022-11-02] MEDS ORDERED: DILTIAZEM HCL 50 MG IV ONE (01:58)
[2022-11-02] MEDS ORDERED: DILTIAZEM HCL 50 MG IV IV ONE (02:00)
[2022-11-02 02:02] LABS: ALANINE AMINOTRANSFERASE 79 U/L (12-78); ALBUMIN 2.8 g/dL (3.4-5.0); ALKALINE PHOSPHATASE 168 U/L (46-116); ASPARTATE AMINOTRANSFERASE 59 U/L (15-37); BILIRUBIN,DIRECT 0.3 mg/dL (0.0-0.2); BILIRUBIN,TOTAL 0.8 mg/dL (0.2-1.0); TOTAL PROTEIN, SERUM 6.7 g/dL (6.4-8.2)
--- NOTE | 2022-11-02 02:31 | NUR ---
US TECH AT BEDSIDE
[2022-11-02] MEDS ORDERED: DILTIAZEM HCL IV 125 MG in IV NS 0.9% 100 ML IV PRN (03:00)
--- NOTE | 2022-11-02 03:00 | NUR ---
TAKE TO CT
[2022-11-02] MEDS ORDERED: CT SWABBABLE VALVE TRANS SET 1 EA INFUS.SET MC ONE (03:04)
[2022-11-02] MEDS ORDERED: IOHEXOL-350 100 ML VIAL IV ONE (03:04)
[2022-11-02] MEDS ORDERED: IV NS 0.9% 250 ML IV ONE (03:04)
--- NOTE | 2022-11-02 03:53 | NUR ---
[facility] PAGED
[2022-11-02] MEDS ORDERED: ACETAMINOPHEN 325 MG TABLET PO PRN (04:00)
[2022-11-02] MEDS ORDERED: ONDANSETRON HCL/PF 4 MG/2 ML VIAL IVP PRN (04:00)
[2022-11-02] MEDS ORDERED: MORPHINE SULFATE INJ 2 MG/ML DISP.SYRIN IV PRN (04:00)
--- NOTE | 2022-11-02 05:07 | NUR ---
US TEECH AT BED SIDE FOR ECHO
--- NOTE | 2022-11-02 06:36 | NUR ---
REPORT TO BE GIVEN ON NEXT SHIFT
--- NOTE | 2022-11-02 07:10 | NUR ---
RECEIVEDPT FROM GABBY CERVANTES PT AWAKE AND ALERT NO CHEST PAIN OR SOB
[2022-11-02 08:00] VITALS: BP 115/90
--- NOTE | 2022-11-02 08:06 | NUR ---
HAND OFF MARYGRACE. Duong RN TO ROOM 111- VIA GARNY STABLE CONDITION AWAKE AND ALERT
--- NOTE | 2022-11-02 08:32 | NUR ---
PT TRANSPORTED TO TELE FLOOR WITH ACLS PROTOCOLS IN PLACE
--- NOTE | 2022-11-02 08:35 | NUR ---
RECEIVED PATIENT VIA GURNEY FROM ED, PATIENT ALERT AND ORIENTED X4, ON ROOM AIR, TOLERATING WELL, NO SOB NOTED, RESPIRATION EVEN AND UNLABORED, DENIES ANY PAIN, NOT IN ANY DISCOMFORT. ABLE TO AMBULATE WITHOUT DIFFICULTY. RIGHT LEG PITTING EDEMA NOTED, SCROTUM SWELLING NOTED. ATTACHED TO TELE MONITOR NOTED WITH UNCONTROLLED AFIB 120-130'S, DR. CLAIRE AND DR. GARVIN MADE AWARE, PATIENT ON HEPARIN. HEPARIN GIVEN MD ORDERED. ORIENTED TO THE USE OF CALL LIGHT AND BED REGULATOR, CHANGED TO A HOSPITAL GOWN. TABLE PLACED WITHIN REACH. SAFETY MEASURES IN PLACED. PLAN OF CARE CONTINUE.
[2022-11-02] MEDS ORDERED: HEPARIN SODIUM, PORCINE 5000 UNITS/1 ML VIAL SQ SCH (09:00)
[2022-11-02] MEDS: FUROSEMIDE 40 MG/4 ML VIAL IV SCH ×2 (09:07→16:16)
--- NOTE | 2022-11-02 11:42 | NUR ---
DR. GARVIN AT THE BEDSIDE, PATIENT BROUGHT HOME MEDICATIONS ELIQUIS 5 MG BID, PER MD PUT THE ORDER, NOTED AND CARRIED OUT.
--- NOTE | 2022-11-02 11:43 | NUR ---
DUPLEX ULTRASOUND BEING DONE AT THIS MOMENT. ELIQUIS HOME MEDICATION SENT TO THE PHARMACY
[2022-11-02] MEDS ORDERED: APIX5TAB PO (11:52)
[2022-11-02] MEDS ORDERED: METO25TA4 PO (11:52)
[2022-11-02 12:00] VITALS: BP 103/73
--- NOTE | 2022-11-02 12:00 | NUR ---
HOME MEDICATION ELIQUIS BROUGHT TO THE PHARMACY.
--- NOTE | 2022-11-02 12:04 | NUR ---
INFORMED DR. GARVIN THAT PATIENT IS TAKING HEPARIN, PER DR. GARVIN DC HEPARIN AND CONTINUE ELIQUIS NOTED AND CARRIED OUT.
[2022-11-02] MEDS ORDERED: METOPROLOL SUCCINATE 25 MG TAB.SR.24H PO SCH (13:00)
[2022-11-02] MEDS ORDERED: APIXABAN 5 MG TABLET PO SCH ×2 (13:00→17:00)
--- NOTE | 2022-11-02 15:45 | NUR ---
UA COLLECTED, GAVE TO RETAIL MERCHANDISING MANAGER
[2022-11-02 16:00] VITALS: BP 112/81
[2022-11-02 16:10] LABS: BILIRUBIN,URINE NEGATIVE (NEGATIVE); COLOR,URINE YELLOW (YELLOW); LEUKOCYTE ESTERASE ,URINE NEGATIVE (NEGATIVE); NITRITE, URINE NEGATIVE (NEGATIVE); PH,URINE 6.5 (5.0-8.0); PROTEIN,URINE NEGATIVE (NEGATIVE); UGLUCOSE NEGATIVE (NEGATIVE); UROBILINOGEN,URINE 0.2 EU/dL (0.2)
--- NOTE | 2022-11-02 17:28 | NUR ---
DR. CLAIRE AT THE BEDSIDE, INFORMED HR 130'S, NOTED EKG READING A FLUTTER, DR. CLAIRE WILL PUT THE ORDER FOR AMIODARONE,WILL FOLLOW UP.
[2022-11-02] MEDS ORDERED: AMIODARONE 450 MG in IV D5W 241 ML IV PRN (18:30)
[2022-11-02] MEDS ORDERED: AMIODARONE 150 MG in IV D5W 100 ML IV ONE (18:30)
--- NOTE | 2022-11-02 18:55 | NUR ---
RAJ RN CLOSING NOTES PATIENT ALERT AND ORIENTED X4, ON ROOM AIR, TOLERATING WELL, NO SOB NOTED, RESPIRATION EVEN AND UNLABORED, DENIES ANY PAIN, NOT IN ANY DISCOMFORT. ABLE TO AMBULATE WITHOUT DIFFICULTY. AMIODARONE BOLUS GIVEN, WILL START AMIODARONE DOSE AFTER. ON TELE MONITOR WITH AFLUTTER HR 130'S, DENIES ANY CHEST PAIN OR DIZZINESS. SAFETY MEASURES IN PLACED. CALL LIGHT WITHIN REACH. WILL ENDORSE TO [employer]ER[employer] AUTO BODY REPAIRER NURSE FOR CHEL.
--- NOTE | 2022-11-02 19:05 | NUR ---
AMIODARONE LOADING DOSE AT 33.33ML/HR STARTED, ENDORSED TO REFUGIO CERVANTES.
--- NOTE | 2022-11-02 19:30 | NUR ---
DIE MACHINE OPERATOR OPENING NOTES RECEIVED PATIENT ALERT ORIENTED X4, NO SOB NO DISTRESS NOTED, PATIENT DENIES ANY PAIN AT THIS TIME, ALL SAFETY MEASURES IN PLACE, WILL CONTINUE TO MONITOR.
[2022-11-02 21:58] VITALS: BP 96/71
[2022-11-03] VITALS: BP 108/75
--- NOTE | 2022-11-03 00:52 | NUR ---
RN note Patient non compliant, keeps taking off amiodarone drip. Educated and explained benefits and importance of this medication. However, patient is AAO x 4, states he feels weird from it and now wants it stopped. Pt a-flutter on the monitor with HR at 128. Dr Palomino was notified-acknowledged with no new orders.
[2022-11-03 04:00] VITALS: BP 110/83
--- NOTE | 2022-11-03 07:10 | NUR ---
RN NOTE RECEIVED PATIENT IN BED RESTING ALERT ORIENTED X4 VERBALLY RESPONSIVE ON ROOM AIR O2:98% NO SOB NOT ACUTE DISTRESS NOTED,HE REFUSES TO GET AMIODARONE DRIP,IV ACCESS ON RIGHT AC INTACT PATENT CONTINUE TO MONITOR.
--- NOTE | 2022-11-03 08:22 | NUR ---
RN NOTE PATIENT LEFT AMA,HE SIGNED AMA PAPER,EXPLAINED RISK OF LEAVE AGAINST MEDICAL ADVICE,HE INSISTED TO LEAVE,IV ACCESS REMOVED,HE SIGNED BELONGINGS PAPER AND LEFT HOSPITAL.
== END 2022-11-03 08:21 | disposition left against medical advice (07) | DRG 194 ==
LOC: ER 00:45 → TELE1 06:48 → TELE-TD 18:21
PROVIDERS: ADMIT Internal Medicine
DX: I50.43 Acute on chronic combined systolic (congestive) and diastolic (congestive) heart failure (principal); N17.9 Acute kidney failure, unspecified; D68.9 Coagulation defect, unspecified; E44.1 Mild protein-calorie malnutrition; I48.92 Unspecified atrial flutter; E88.09 Other disorders of plasma-protein metabolism, not elsewhere classified; I42.9 Cardiomyopathy, unspecified; F32.A Depression, unspecified; Z20.822 Contact with and (suspected) exposure to COVID-19; Z79.899 Other long term (current) drug therapy; I86.1 Scrotal varices; Z68.25 Body mass index [BMI] 25.0-25.9, adult; Z91.011 Allergy to milk products; R60.0 Localized edema; Z79.01 Long term (current) use of anticoagulants; N48.89 Other specified disorders of penis; Z91.148 Patient's other noncompliance with medication regimen for other reason; N18.9 Chronic kidney disease, unspecified
CPT/HCPCS: 36415; 71045-TC; 76770-TC; 76870-TC; 80048-TC; 80076-TC; 83880; 84484-TC; 85025-TC; 85730-TC; 87081-TC; 93307-TC; 93970-TC; A4223; C9803; G0378; J0282; J1644; J1940; J3490; J7050; J7060; Q9967

== ENCOUNTER 2022-11-10 01:02 | Inpatient (IN) | payer OTHER ==
[~2022-11-10] VITALS: Ht 177.8 cm; Wt 76.7 kg
[~2022-11-10 01:02] MED LIST: APIX5TAB PO; METO25TA4 PO
--- NOTE | 2022-11-10 01:58 | NUR ---
LAUREEN C/O SOB. SEEN AT SO LAST WEEK. A/OX4. PT TOLERATING R/A AT 95%. CONNECTED PT TO POX AND MONITOR. SAFETY MEASURES IN PLACE.
--- NOTE | 2022-11-10 02:25 | NUR ---
RFA #18G S/L; BLOOD COLLECTED AND SENT TO LAB
--- NOTE | 2022-11-10 02:26 | NUR ---
PUTTYING AND CALKING SUPERVISOR AT PT'S BEDSIDE
[2022-11-10 02:35] LABS: BASOPHILS # (AUTO) 0.1 K/uL (0.0-0.2); BASOPHILS % (AUTO) 0.9 % (0.0-2.0); EOSINOPHILS % (AUTO) 3.9 % (0.0-6.0); HEMATOCRIT 46 % (39-51); HEMOGLOBIN 14.5 g/dL (13.5-17.5); LYMPHOCYTES # (AUTO) 1.1 K/uL (0.8-4.8); MEAN CORPUSCULAR HGB CONC 32 g/dl (31.0-36.0); MEAN CORPUSCULAR VOLUME 90 fL (80-96); MONOCYTES # (AUTO) 0.4 K/uL (0.1-1.30); MONOCYTES % (AUTO) 6.4 % (2.0-12.0); NEUTROPHILS # (AUTO) 4.1 K/uL (1.8-8.9); NEUTROPHILS % (AUTO) 69.8 % (43.0-81.0); PLATELET COUNT (AUTO) 226 K/uL (150-450); RED BLOOD CELL COUNT(AUTO) 5.04 MIL/uL (4.5-6.0); WHITE BLOOD COUNT (AUTO) 5.9 K/uL (4.3-11.0)
[2022-11-10 02:47] LABS: CALCIUM, SERUM 8.5 mg/dL (8.5-10.1); CARBON DIOXIDE 26 mmol/L (21-32); CHLORIDE 103 mmol/L (98-107); CREATININE 1.3 mg/dL (0.6-1.3); GLUCOSE 101 mg/dL (74-106); POTASSIUM 5.1 mmol/L (3.5-5.1); SODIUM SERUM 138 mmol/L (136-145); UREA NITROGEN, BLOOD 24 mg/dL (7-18)
[2022-11-10 02:58] LABS: ALANINE AMINOTRANSFERASE 44 U/L (12-78); ALBUMIN 2.8 g/dL (3.4-5.0); ALKALINE PHOSPHATASE 160 U/L (46-116); ASPARTATE AMINOTRANSFERASE 38 U/L (15-37); BILIRUBIN,DIRECT 0.2 mg/dL (0.0-0.2); BILIRUBIN,TOTAL 0.5 mg/dL (0.2-1.0)
[2022-11-10] MEDS ORDERED: FUROSEMIDE 20 MG/2 ML VIAL ONE (02:59)
[2022-11-10] MEDS ORDERED: FUROSEMIDE 20 MG/2 ML VIAL IV ONE (03:00)
--- NOTE | 2022-11-10 03:04 | NUR ---
COVID ANTIGEN SWAB COLLECTED AND SENT TO LAB
--- NOTE | 2022-11-10 03:29 | NUR ---
CLINICAL REPORT GIVEN TO JULIANA STARR [facility] [phone] AWAITING PENDING RESULTS TO GIVE TO JULIANA
--- NOTE | 2022-11-10 03:30 | NUR ---
NATIONAL BUSINESS DIRECTOR AT PT'S BEDSIDE
--- NOTE | 2022-11-10 04:33 | NUR ---
EPIC PAGED WAITING FOR CALL BACK
--- NOTE | 2022-11-10 04:36 | NUR ---
DR RANDALL YEH ON PHONE CALL WITH ALIX ORNELAS
[2022-11-10] MEDS ORDERED: ONDANSETRON HCL/PF 4 MG/2 ML VIAL IVP PRN (05:30)
[2022-11-10] MEDS ORDERED: MAG HYDROX/AL HYDROX/SIMETH 30 ML UDC PO PRN (05:30)
[2022-11-10] MEDS ORDERED: METOPROLOL SUCCINATE 50 MG TAB.SR.24H PO SCH (05:30)
[2022-11-10] MEDS ORDERED: ACETAMINOPHEN 325 MG TABLET PO PRN (05:30)
[2022-11-10] MEDS ORDERED: Z GUARD REMEDY 4 OZ OINT TP PRN (05:30)
[2022-11-10] MEDS ORDERED: ZOLPIDEM TARTRATE 5 MG TABLET PO PRN (05:30)
[2022-11-10] MEDS ORDERED: MAGNESIUM HYDROXIDE 30 ML UDC PO PRN (05:30)
--- NOTE | 2022-11-10 06:44 | NUR ---
700 ML URINE OUTPUT
--- NOTE | 2022-11-10 06:51 | NUR ---
BED ASSIGNED IS 307-1
[2022-11-10 07:30] VITALS: BP 124/80
--- NOTE | 2022-11-10 07:55 | NUR ---
REPORT GIVEN TO TAMMY CERVANTES FOR CHEL AT BEDSIDE
--- NOTE | 2022-11-10 08:00 | NUR ---
TRAIN CLERKRAILROAD BRAKE REPAIRER NOTES: PT CAME TO UNIT VIA [facility], RECEIVED BEDSIDE REPORT FROM SUPERVISOR SMOKE CONTROL. PT AMBULATED TO BED WITH STEADY GAIT. PT IS AWAKE, A/O X4, PT STATES SHE GOES BY " [facility]" AND PRONOUNS, SHE/HER. PT'S VITALS: BP= 124/80, 02 SAT = 93% ON RA, RR= 20, HR= 130. PLACED ON [employer] SUPERVISOR, CURRENT READING SINUS TACH, HR= 129, MADE MD AWARE. PT PLACED ON 2 L OF 02 VIA NC, NO S/S OF SOB AT THIS TIME, O2 SAT = 97%, DENIES PAIN. PT REFUSED TO DON [facility] GOWN, SKIN ASSESSED, NO OPEN WOUNDS NOTED. BILATERAL FEET SWELLING NOTED. ALL SAFETY MEASURES IN PLACE, BED LOCKED IN LOWEST POSITION, HOB ELEVATED. CALL LIGHT AND TABLE WITHIN EASY REACH. ENCOURAGED PT TO USE CALL LIGHT FOR HELP, PT VERBALIZED UNDERSTANDING, WILL CONT WITH PLAN OF ARE DURING SHIFT.
[2022-11-10] MEDS: FUROSEMIDE 40 MG/4 ML VIAL IV SCH ×2 (09:23→20:15)
[2022-11-10] MEDS: PANTOPRAZOLE 40 MG VIAL IV SCH (09:23)
[2022-11-10] MEDS: APIXABAN 5 MG TABLET PO SCH ×2 (09:34→16:21)
[2022-11-10] MEDS: METOPROLOL SUCCINATE 50 MG TAB.SR.24H PO SCH (09:37)
[2022-11-10 12:00] VITALS: BP 106/87
--- NOTE | 2022-11-10 14:00 | NUR ---
RN NOTES: PT REMOVED O2, STATES SHE IS COMFORTABLE RIGHT NOW, CHECKED O2 SAT, SATURATING AT 95% ON RA, TURNED OFF O2 WILL CONT TO REASSESS PRN.
[2022-11-10 16:00] VITALS: BP 100/74
--- NOTE | 2022-11-10 18:17 | NUR ---
DIELECTRIC EMBOSSING MACHINE OPERATOR CLOSING NOTES: PT IS AWAKE, A/O X4, PT STATES SHE GOES BY " [facility]" AND PRONOUNS, SHE/HER. ON ASSOCIATE PROFESSOR OF PATHOLOGY, CURRENT READING SINUS TACH, HR= 126, HOSPITALIST IS AWARE. PT CURRENTLY ON RA, NO S/S OF SOB AT THIS TIME, O2 SAT = 96%, DENIES PAIN. IV ACCESS AT R FA #18, SL, PATENT, INTACT AND FLUSHING WELL. PT REFUSED TO DON HOSPITAL GOWN, STATES SHE IS COMFORTBLE IN HER OWN CLOTHES. BILATERAL FEET SWELLING NOTED. DUE MEDS GIVEN, KEPT PT CLEAN/DRY AND COMFORTABLE. ALL SAFETY MEASURES IN PLACE, BED LOCKED IN LOWEST POSITION, HOB ELEVATED. CALL LIGHT AND TABLE WITHIN EASY REACH. ENCOURAGED PT TO USE CALL LIGHT FOR HELP, PT VERBALIZED UNDERSTANDING, WILL ENDORSE TO PM SHIFT.
--- NOTE | 2022-11-10 19:20 | NUR ---
PAPER SAMPLE CLERK OPENING NOTES - RECEIVED PATIENT AWAKE, HOB IN SEMI-HICKEY'S. A/O X4, PREFERS TO BE CALLED [facility] AND USES SHE/HER PRONOUNS. BREATHING EVEN AND NON-LABORED ON ROOM AIR. NO RESPIRATORY DISTRESS AT THIS TIME. NO C/O PAIN OR DISCOMFORT. ON TELE MONITOR READING SINUS TACHYCARDIA AT 130 BPM. HAS RIGHT FOREARM IV ACCESS #18G AND SALINE LOCKED. NO S/S OF INFILTRATION NOTED. PATIENT EDUCATION GIVEN ON FLUID RESTRICTION AND STRICT INTAKE AND OUTPUT MONITORING. SAFETY PRECAUTIONS IN PLACE: BED LOCKED AND IN LOW POSITION, SIDE RAILS UP X2, CALL LIGHT WITHIN REACH. WILL CONTINUE PLAN OF CARE.
[2022-11-10 20:00] VITALS: BP_SYST 106; BP_SYST 116; BP_DIAS 74; BP_DIAS 76
[2022-11-11] VITALS: BP 109/73
[2022-11-11 04:00] VITALS: BP 137/94
--- NOTE | 2022-11-11 06:15 | NUR ---
PRN MAALOX GIVEN TO PATIENT FOR C/O DYSPEPSIA. WILL CONTINUE TO MONITOR.
[2022-11-11 06:28] LABS: BASOPHILS % (AUTO) 0.8 % (0.0-2.0); HEMATOCRIT 44 % (39-51); HEMOGLOBIN 14.5 g/dL (13.5-17.5); LYMPHOCYTES # (AUTO) 1.4 K/uL (0.8-4.8); LYMPHOCYTES % (AUTO) 24.2 % (20.0-44.0); MEAN CORPUSCULAR HGB CONC 33 g/dl (31.0-36.0); MEAN CORPUSCULAR VOLUME 88 fL (80-96); MONOCYTES # (AUTO) 0.4 K/uL (0.1-1.30); NEUTROPHILS # (AUTO) 3.7 K/uL (1.8-8.9); PLATELET COUNT (AUTO) 227 K/uL (150-450); RED BLOOD CELL COUNT(AUTO) 5.01 MIL/uL (4.5-6.0)
--- NOTE | 2022-11-11 06:40 | NUR ---
VIBRATING SCREED OPERATOR CLOSING NOTES - PATIENT RESTING IN BED, ABLE TO VERBALIZE NEEDS. KEPT HOB ELEVATED. NO C/O SOB OR , SATURATING WELL ON ROOM AIR. AFEBRILE. TELE MONITOR SHOWS SINUS TACHYCARDIA AT 124-135 BPM. RIGHT FOREARM IV ACCESS INTACT, PATENT AND FLUSHING. ELEVATED LOWER EXTREMITIES. ENCOURAGED TO LIMIT FLUID INTAKE. ALL DUE MEDS GIVEN AND NEEDS ATTENDED. SAFETY PRECAUTIONS MAINTAINED. WILL ENDORSE TO NEXT SHIFT RN FOR CHEL.
[2022-11-11 06:50] LABS: CALCIUM, SERUM 7.8 mg/dL (8.5-10.1); CREATININE 1.3 mg/dL (0.6-1.3); PHOSPHORUS 4.2 mg/dL (2.5-4.9); POTASSIUM 4.1 mmol/L (3.5-5.1)
[2022-11-11 06:57] LABS: THYROID STIMULATING HORMONE 8.664 uIU/mL (0.358-3.74)
--- NOTE | 2022-11-11 07:10 | NUR ---
ms rn received on bed, awake,alert,oriented x4,not in any form of distress , respirations even and unlabored, on room air, saturating well, denies pain at this time, all needs attended.
[2022-11-11 08:00] VITALS: BP 125/70
[2022-11-11] MEDS ORDERED: LOSARTAN POTASSIUM 25 MG TABLET PO SCH (09:00)
--- NOTE | 2022-11-11 09:00 | NUR ---
ms rn breakfast served,due meds given tolerated well.,patient wanted to leave, advised him to wait for joshua cutler, texted joshua, will put d/c orders and pharmacy meds.
[2022-11-11 09:29] VITALS: BP 125/70
[2022-11-11] MEDS: METOPROLOL SUCCINATE 50 MG TAB.SR.24H PO SCH (09:29)
[2022-11-11] MEDS: APIXABAN 5 MG TABLET PO SCH (09:30)
[2022-11-11] MEDS: FUROSEMIDE 40 MG/4 ML VIAL IV SCH (09:30)
[2022-11-11] MEDS: PANTOPRAZOLE 40 MG VIAL IV SCH (09:30)
--- NOTE | 2022-11-11 11:00 | NUR ---
ms rn patient cannot wait, went down,called security to stop patient from going out,came back here, d/c instructions given and understood, went home,all needs attended.
[2022-11-11] MEDS ORDERED: FURO-144 PO (11:03)
[2022-11-11] MEDS ORDERED: SPIR50TA5 PO (11:03)
[2022-11-11] MEDS ORDERED: SACU1TAB7 PO (11:03)
[2022-11-11] MEDS ORDERED: CARV12.5 PO (11:03)
[2022-11-11] MEDS ORDERED: EMPA25TA PO (11:03)
[2022-11-11] MEDS ORDERED: POTA10CA43 PO (11:03)
[2022-11-11] MEDS ORDERED: DIGOXIN INJ 0.5 MG/2 ML AMPUL IV SCH (12:00)
[2022-11-12] MEDS ORDERED: PANTOPRAZOLE 40 MG TABLET.DR PO SCH (07:30)
== END 2022-11-11 11:05 | disposition home or self-care (01) | DRG 194 ==
LOC: ER 01:06 → TELE 07:54
PROVIDERS: ADMIT Nurse Practitioner Acute Care; ATTEND Nurse Practitioner Acute Care
DX: I50.43 Acute on chronic combined systolic (congestive) and diastolic (congestive) heart failure (principal); E46 Unspecified protein-calorie malnutrition; I48.92 Unspecified atrial flutter; I42.9 Cardiomyopathy, unspecified; Z79.01 Long term (current) use of anticoagulants; F32.A Depression, unspecified; I48.91 Unspecified atrial fibrillation; Z20.822 Contact with and (suspected) exposure to COVID-19; Z91.148 Patient's other noncompliance with medication regimen for other reason; Z91.011 Allergy to milk products; Z79.899 Other long term (current) drug therapy; R74.01 Elevation of levels of liver transaminase levels
CPT/HCPCS: 36415; 71045-TC; 76705-TC; 80048-TC; 80076-TC; 83735-TC; 83880; 84100-TC; 84443-TC; 84484-TC; 85025-TC; 87081-TC; C9113; C9803; G0378; J1940

== ENCOUNTER 2022-11-13 09:52 | Emergency (ER) | payer OTHER ==
[~2022-11-13] VITALS: Ht 177.8 cm; Wt 74.8 kg
[~2022-11-13 09:52] MED LIST changes: +CARV12.5 PO; +EMPA25TA PO; +FURO-144 PO; +POTA10CA43 PO; +SACU1TAB7 PO; +SPIR50TA5 PO
--- NOTE | 2022-11-13 10:15 | NUR ---
C/O SOB SINCE YESTERDAY. NO PAIN ON BREATHING, NOR CHEST PAIN. PT IS NOT IN CARDIO DITRESS. DENIES ANY OTHER SYMPTOMS.
--- NOTE | 2022-11-13 10:19 | NUR ---
iv access done bld drawn and sent to lab. pt put on bed , on monitor at bedside made comfortable. waiting for MD ORDERS.
--- NOTE | 2022-11-13 10:31 | NUR ---
COVID SWAB DONE AND SENT TO LAB.
[2022-11-13] MEDS ORDERED: FUROSEMIDE 20 MG/2 ML VIAL ONE (11:19)
[2022-11-13 11:20] LABS: BASOPHILS # (AUTO) 0.1 K/uL (0.0-0.2); BASOPHILS % (AUTO) 1.2 % (0.0-2.0); CALCIUM, SERUM 9.2 mg/dL (8.5-10.1); CARBON DIOXIDE 31 mmol/L (21-32); CHLORIDE 102 mmol/L (98-107); CREATININE 1.3 mg/dL (0.6-1.3); EOSINOPHILS % (AUTO) 6.1 % (0.0-6.0); GLUCOSE 78 mg/dL (74-106); HEMATOCRIT 47 % (39-51); HEMOGLOBIN 15.1 g/dL (13.5-17.5); LYMPHOCYTES # (AUTO) 1.5 K/uL (0.8-4.8); LYMPHOCYTES % (AUTO) 27.3 % (20.0-44.0); MEAN CORPUSCULAR HGB CONC 32 g/dl (31.0-36.0); MEAN CORPUSCULAR VOLUME 92 fL (80-96); MONOCYTES # (AUTO) 0.4 K/uL (0.1-1.30); MONOCYTES % (AUTO) 7.3 % (2.0-12.0); NEUTROPHILS # (AUTO) 3.2 K/uL (1.8-8.9); NEUTROPHILS % (AUTO) 58.1 % (43.0-81.0); PLATELET COUNT (AUTO) 250 K/uL (150-450); POTASSIUM 4.4 mmol/L (3.5-5.1); RED BLOOD CELL COUNT(AUTO) 5.15 MIL/uL (4.5-6.0); SODIUM SERUM 139 mmol/L (136-145); UREA NITROGEN, BLOOD 33 mg/dL (7-18); WHITE BLOOD COUNT (AUTO) 5.4 K/uL (4.3-11.0)
[2022-11-13] MEDS ORDERED: FUROSEMIDE 20 MG/2 ML VIAL IV ONE (11:30)
[2022-11-13 11:34] LABS: ALANINE AMINOTRANSFERASE 34 U/L (12-78); ALKALINE PHOSPHATASE 154 U/L (46-116); ASPARTATE AMINOTRANSFERASE 26 U/L (15-37); BILIRUBIN,DIRECT 0.3 mg/dL (0.0-0.2); BILIRUBIN,TOTAL 0.6 mg/dL (0.2-1.0); TOTAL PROTEIN, SERUM 7.4 g/dL (6.4-8.2)
[2022-11-13] MEDS ORDERED: FURO-144 PO (12:06)
[2022-11-13 12:20] VITALS: BP 100/80
== END 2022-11-13 12:21 | disposition home or self-care (01) ==
LOC: ER 09:54
DX: I50.9 Heart failure, unspecified (principal); F32.A Depression, unspecified; Z60.2 Problems related to living alone; Z79.899 Other long term (current) drug therapy; Z20.822 Contact with and (suspected) exposure to COVID-19; Z88.8 Allergy status to other drugs, medicaments and biological substances
CPT/HCPCS: 99285; 96374; 71045; 87426; 93005; 85025; 80048; 80076; 36415; 84484; 83880; J1940; C9803

== ENCOUNTER 2022-12-03 01:39 | Emergency (ER) | payer OTHER ==
[~2022-12-03] VITALS: Ht 177.8 cm; Wt 79.4 kg
[~2022-12-03 01:39] MED LIST changes: -METO25TA4 PO
--- NOTE | 2022-12-03 02:00 | NUR ---
BIBSELF C/O SHORTNESS OF BREATH XSEVERAL WEEKS, LEG SWELLING, HX CHF, ON LASIX 40MG DAILY. PT AAOX4, AMBULATORY, PLACED IN BED, VITALS CHECKED. 94-95% O2SAT ON RA.
--- NOTE | 2022-12-03 02:16 | NUR ---
Anne-Marie AOx4, able to express own concerns. Patient states feeling short of breath and lower leg edema. No signs of distress, O2 98% on Room Air. MD at bedside discussing plan of care All safety precautions taken, will continue to monitor.
[2022-12-03] MEDS ORDERED: IPRATROPIUM NEB FS 0.5 MG/2.5 ML AMPUL.NEB NEB ONE (02:30)
[2022-12-03] MEDS ORDERED: ALBUTEROL FS 2.5 MG/3 ML VIAL.NEB CONTNEB ONE (02:30)
[2022-12-03] MEDS ORDERED: predniSONE 20 MG TABLET PO ONE (02:30)
[2022-12-03 02:52] LABS: BASOPHILS % (AUTO) 0.4 % (0.0-2.0); EOSINOPHILS % (AUTO) 8.4 % (0.0-6.0); HEMATOCRIT 42 % (39-51); HEMOGLOBIN 13.6 g/dL (13.5-17.5); LYMPHOCYTES # (AUTO) 1.6 K/uL (0.8-4.8); LYMPHOCYTES % (AUTO) 26.3 % (20.0-44.0); MEAN CORPUSCULAR HGB CONC 32 g/dl (31.0-36.0); MEAN CORPUSCULAR VOLUME 88 fL (80-96); MONOCYTES # (AUTO) 0.6 K/uL (0.1-1.30); MONOCYTES % (AUTO) 10.8 % (2.0-12.0); NEUTROPHILS # (AUTO) 3.2 K/uL (1.8-8.9); NEUTROPHILS % (AUTO) 54.1 % (43.0-81.0); PLATELET COUNT (AUTO) 198 K/uL (150-450); WHITE BLOOD COUNT (AUTO) 5.9 K/uL (4.3-11.0)
--- NOTE | 2022-12-03 03:00 | NUR ---
RT AT PT'S BEDSIDE FOR BREATHING TX
[2022-12-03] MEDS ORDERED: ALBUTEROL FS 2.5 MG/3 ML VIAL.NEB ONE (03:01)
[2022-12-03] MEDS ORDERED: IPRATROPIUM NEB FS 0.5 MG/2.5 ML AMPUL.NEB ONE (03:01)
[2022-12-03 03:02] LABS: CARBON DIOXIDE 25 mmol/L (21-32); CHLORIDE 102 mmol/L (98-107); CREATININE 1.2 mg/dL (0.6-1.3); GLUCOSE 102 mg/dL (74-106); POTASSIUM 4.2 mmol/L (3.5-5.1); SODIUM SERUM 136 mmol/L (136-145); UREA NITROGEN, BLOOD 28 mg/dL (7-18)
[2022-12-03 03:16] LABS: ALANINE AMINOTRANSFERASE 32 U/L (12-78); ALBUMIN 2.9 g/dL (3.4-5.0); ALKALINE PHOSPHATASE 168 U/L (46-116); ASPARTATE AMINOTRANSFERASE 30 U/L (15-37); BILIRUBIN,DIRECT 0.3 mg/dL (0.0-0.2); BILIRUBIN,TOTAL 0.7 mg/dL (0.2-1.0); TOTAL PROTEIN, SERUM 7.2 g/dL (6.4-8.2)
[2022-12-03] MEDS ORDERED: predniSONE 20 MG TABLET ONE (03:55)
[2022-12-03] MEDS ORDERED: FUROSEMIDE 40 MG/4 ML VIAL ONE (03:55)
[2022-12-03] MEDS ORDERED: FUROSEMIDE 40 MG/4 ML VIAL IV ONE (04:00)
[2022-12-03] MEDS ORDERED: PRED50TA PO (04:07)
[2022-12-03] MEDS ORDERED: ALBU6.7H9 INH (04:15)
[2022-12-03 04:24] VITALS: BP 128/64
== END 2022-12-03 04:26 | disposition home or self-care (01) ==
LOC: ER 01:46
DX: J45.901 Unspecified asthma with (acute) exacerbation (principal); I50.9 Heart failure, unspecified; F32.A Depression, unspecified; Z60.2 Problems related to living alone; Z79.899 Other long term (current) drug therapy
CPT/HCPCS: 99285; 96374; 71045; 93005; 85025; 80048; 80076; 36415; 84484; 83880; 94640 ×2; J1940; J7512

== ENCOUNTER 2023-06-23 02:28 | Emergency (ER) | payer OTHER ==
[~2023-06-23] VITALS: Ht 177.8 cm; Wt 70.3 kg
[~2023-06-23 02:28] MED LIST changes: +ALBU6.7H9 IH
[2023-06-23] MEDS ORDERED: CLINDAMYCIN 900 MG/6 ML VIAL ONE (03:54)
[2023-06-23] MEDS ORDERED: KETOROLAC TROMETHAMINE INJ 30 MG/ML VIAL ONE (03:54)
[2023-06-23] MEDS ORDERED: KETOROLAC TROMETHAMINE INJ 30 MG/ML VIAL IV ONE (04:00)
[2023-06-23] MEDS ORDERED: CLINDAMYCIN 600 MG in IV D5W 100 ML IV ONE (04:00)
[2023-06-23 04:01] LABS: HEMOGLOBIN 13.3 g/dL (13.5-17.5)
[2023-06-23 04:06] LABS: CALCIUM, SERUM 8.6 mg/dL (8.5-10.1); CREATININE 1.3 mg/dL (0.6-1.3); POTASSIUM 3.9 mmol/L (3.5-5.1)
[2023-06-23 04:11] LABS: BASOPHILS % (AUTO) 0.7 % (0.0-2.0); EOSINOPHILS # (AUTO) 0.5 K/uL (0.0-0.7); EOSINOPHILS % (AUTO) 8.2 % (0.0-6.0); HEMATOCRIT 40 % (39-51); LYMPHOCYTES # (AUTO) 1.2 K/uL (0.8-4.8); LYMPHOCYTES % (AUTO) 18.7 % (20.0-44.0); MEAN CORPUSCULAR HEMOGLOBIN 30 PG (26.0-33.0); MEAN CORPUSCULAR HGB CONC 33 g/dl (31.0-36.0); MEAN CORPUSCULAR VOLUME 89 fL (80-96); MONOCYTES # (AUTO) 0.6 K/uL (0.1-1.30); MONOCYTES % (AUTO) 8.8 % (2.0-12.0); NEUTROPHILS # (AUTO) 4.3 K/uL (1.8-8.9); NEUTROPHILS % (AUTO) 63.6 % (43.0-81.0); PLATELET COUNT (AUTO) 220 K/uL (150-450); RED CELL DISTRIBUTION WIDTH 15.7 % (11.5-15.0); WHITE BLOOD COUNT (AUTO) 6.7 K/uL (4.3-11.0)
[2023-06-23 04:12] LABS: ALBUMIN 3.2 g/dL (3.4-5.0); BILIRUBIN,TOTAL 1.4 mg/dL (0.2-1.0); TOTAL PROTEIN, SERUM 7.1 g/dL (6.4-8.2)
[2023-06-23 04:15] LABS: LACTIC ACID 1.9 mmol/L (0.4-2.0)
[2023-06-23] MEDS ORDERED: CT SWABBABLE VALVE TRANS SET 1 EA INFUS.SET MC ONE (04:44)
[2023-06-23] MEDS ORDERED: IOHEXOL-300 100 ML VIAL IV ONE (04:44)
[2023-06-23] MEDS ORDERED: IV NS 0.9% 250 ML IV ONE (04:44)
[2023-06-23 08:39] LABS: APPEARANCE,URINE SLIGHTLY CLOUDY (CLEAR); BILIRUBIN,URINE NEGATIVE (NEGATIVE); BLOOD, URINE NEGATIVE Ery/uL (NEGATIVE); COLOR,URINE YELLOW (YELLOW); KETONES,URINE NEGATIVE (NEGATIVE); LEUKOCYTE ESTERASE ,URINE NEGATIVE (NEGATIVE); NITRITE, URINE NEGATIVE (NEGATIVE); PROTEIN,URINE NEGATIVE (NEGATIVE); UGLUCOSE NEGATIVE (NEGATIVE)
[2023-06-23 08:57] LABS: BARBITURATE, URINE NEGATIVE (NEGATIVE); BENZODIAZEPINE, URINE NEGATIVE (NEGATIVE); CANNABINOID, URINE NEGATIVE (NEGATIVE); COCCAINE, URINE NEGATIVE (NEGATIVE); OPIATE, URINE NEGATIVE (NEGATIVE); PHENCYCLIDINE SCREEN,URINE NEGATIVE (NEGATIVE)
[2023-06-23 08:58] LABS: AMPHETAMINE, URINE POSITIVE (NEGATIVE)
[2023-06-23] MEDS ORDERED: CLIN300C12 PO (09:15)
[2023-06-23 09:51] VITALS: BP 120/80; TEMP 98.2; O2SAT 97
== END 2023-06-23 09:53 | disposition home or self-care (01) ==
LOC: ER 02:30
DX: L03.317 Cellulitis of buttock (principal); I48.92 Unspecified atrial flutter; F32.A Depression, unspecified; Z79.899 Other long term (current) drug therapy; Z60.2 Problems related to living alone; Z88.1 Allergy status to other antibiotic agents
CPT/HCPCS: 99285; 96365; 72193; 96375; 85025; 87040; 83605; 36415; 80053; 80307; 81003; J3490 ×2; J1885; J7060; J7030; J7050; Q9967

== ENCOUNTER 2023-06-25 16:44 | Inpatient (IN) | payer OTHER ==
[~2023-06-25] VITALS: Ht 177.8 cm; Wt 85.7 kg
[~2023-06-25 16:44] MED LIST changes: +CLIN300C12 PO
[2023-06-25] MEDS ORDERED: LORAZEPAM INJ 2 MG/ML VIAL IV ONE (17:30)
[2023-06-25] MEDS ORDERED: METOPROLOL TARTRATE INJ 5 MG/5 ML AMPUL IV ONE ×2 (17:30→19:00)
[2023-06-25 17:40] LABS: BASOPHILS # (AUTO) 0.1 K/uL (0.0-0.2); EOSINOPHILS # (AUTO) 0.2 K/uL (0.0-0.7); EOSINOPHILS % (AUTO) 2.8 % (0.0-6.0); HEMATOCRIT 41 % (39-51); HEMOGLOBIN 13.6 g/dL (13.5-17.5); LYMPHOCYTES % (AUTO) 16.9 % (20.0-44.0); MEAN CORPUSCULAR HEMOGLOBIN 30 PG (26.0-33.0); MEAN CORPUSCULAR HGB CONC 33 g/dl (31.0-36.0); MEAN CORPUSCULAR VOLUME 89 fL (80-96); MONOCYTES # (AUTO) 0.4 K/uL (0.1-1.30); MONOCYTES % (AUTO) 6.9 % (2.0-12.0); NEUTROPHILS # (AUTO) 4.3 K/uL (1.8-8.9); NEUTROPHILS % (AUTO) 72.4 % (43.0-81.0); PLATELET COUNT (AUTO) 232 K/uL (150-450); RED CELL DISTRIBUTION WIDTH 15.7 % (11.5-15.0)
[2023-06-25 17:54] LABS: INR 1.6 (0.91-1.10); PARTIAL THROMBOPLASTIN TIME 29.9 SEC (24.3-34.3); PROTHROMBIN TIME 16.4 SECS (9.2-11.1)
[2023-06-25 17:58] LABS: CALCIUM, SERUM 8.8 mg/dL (8.5-10.1); CARBON DIOXIDE 24 mmol/L (21-32); CHLORIDE 95 mmol/L (98-107); CREATININE 1.5 mg/dL (0.6-1.3); GLUCOSE 124 mg/dL (74-106); POTASSIUM 3.7 mmol/L (3.5-5.1); SODIUM SERUM 130 mmol/L (136-145); UREA NITROGEN, BLOOD 33 mg/dL (7-18)
[2023-06-25] MEDS ORDERED: METOPROLOL TARTRATE INJ 5 MG/5 ML AMPUL ONE ×2 (18:14→19:08)
[2023-06-25] MEDS ORDERED: LORAZEPAM 1 MG TABLET ONE (18:15)
[2023-06-25] MEDS ORDERED: DILT180C93 PO (18:18)
[2023-06-25] MEDS ORDERED: EMPA25TA PO (18:18)
[2023-06-25] MEDS ORDERED: LEVO88TA5 PO (18:18)
[2023-06-25] MEDS ORDERED: CLIN300C12 PO (18:18)
[2023-06-25] MEDS ORDERED: BICT1TAB PO (18:18)
[2023-06-25] MEDS ORDERED: FURO-145 PO (18:18)
[2023-06-25] MEDS ORDERED: ENOXAPARIN SODIUM 80 MG/0.8 ML DISP.SYRIN SQ ONE ×2 (19:00→19:08)
[2023-06-25] MEDS ORDERED: ASPIRIN 325 MG TABLET PO ONE (19:00)
[2023-06-25] MEDS ORDERED: ASPIRIN 325 MG TABLET ONE (19:08)
[2023-06-25] MEDS ORDERED: DILTIAZEM HCL 25 MG IV ONE (19:59)
[2023-06-25] MEDS ORDERED: DILTIAZEM HCL IV 125 MG in IV NS 0.9% 100 ML IV PRN (20:00)
[2023-06-25] MEDS ORDERED: IV NS 0.9% 1,000 ML BAG IV ONE (20:00)
[2023-06-25 20:45] LABS: APPEARANCE,URINE CLEAR (CLEAR); BILIRUBIN,URINE 1+ (NEGATIVE); BLOOD, URINE NEGATIVE Ery/uL (NEGATIVE); COLOR,URINE YELLOW (YELLOW); KETONES,URINE NEGATIVE (NEGATIVE); LEUKOCYTE ESTERASE ,URINE NEGATIVE (NEGATIVE); NITRITE, URINE NEGATIVE (NEGATIVE); PH,URINE 5.5 (5.0-8.0); PROTEIN,URINE TRACE mg/dl (NEGATIVE); UGLUCOSE NEGATIVE (NEGATIVE)
[2023-06-25 20:55] LABS: ADD URINE CULTURE NO; BACTERIA,URINE None seen /HPF (None Seen); RBC,URINE 0-2 /HPF (0-2); WBC,URINE 0-2 /HPF (0-3)
[2023-06-25 20:56] LABS: HYALINE CASTS, URINE Many /LPF (None Seen); MUCUS,URINE Few /LPF (None Seen)
[2023-06-25 21:16] LABS: BARBITURATE, URINE NEGATIVE (NEGATIVE); BENZODIAZEPINE, URINE NEGATIVE (NEGATIVE); CANNABINOID, URINE NEGATIVE (NEGATIVE); COCCAINE, URINE NEGATIVE (NEGATIVE); OPIATE, URINE NEGATIVE (NEGATIVE); PHENCYCLIDINE SCREEN,URINE NEGATIVE (NEGATIVE)
[2023-06-25 21:17] LABS: AMPHETAMINE, URINE POSITIVE (NEGATIVE)
[2023-06-25] MEDS ORDERED: ACETAMINOPHEN 325 MG TABLET PO PRN (22:30)
[2023-06-25] MEDS ORDERED: ONDANSETRON HCL/PF 4 MG/2 ML VIAL IVP PRN (22:30)
[2023-06-25] MEDS ORDERED: hydrALAZINE HCL IV 20 MG VIAL IV PRN (22:30)
[2023-06-25] MEDS ORDERED: MORPHINE SULFATE INJ 2 MG/ML DISP.SYRIN IV PRN (22:30)
[2023-06-25 22:41] LABS: THYROID STIMULATING HORMONE 11.009 uIU/mL (0.358-3.74)
[2023-06-26 04:00] VITALS: BP 109/95; TEMP 98; O2SAT 99
[2023-06-26] MEDS ORDERED: AMIODARONE 450 MG in IV D5W 241 ML IV PRN (04:00)
[2023-06-26] MEDS ORDERED: AMIODARONE 150 MG/3 ML VIAL IV ONE (04:16)
[2023-06-26] MEDS: DILTIAZEM HCL IV 125 MG in IV NS 0.9% 100 ML IV PRN ×2 (04:30→05:54)
[2023-06-26] MEDS: FUROSEMIDE 40 MG/4 ML VIAL IV SCH ×2 (04:31→08:25)
[2023-06-26 05:00] VITALS: BP 102/56; O2SAT 99
[2023-06-26] MEDS ORDERED: DILTIAZEM HCL 25 MG IV ONE (05:13)
[2023-06-26 06:00] VITALS: BP 119/98; O2SAT 98
[2023-06-26 07:00] VITALS: BP 119/77; O2SAT 97
[2023-06-26] MEDS ORDERED: LEVOTHYROXINE SODIUM 88 MCG TABLET PO SCH (07:00)
[2023-06-26 08:00] VITALS: BP 118/99; TEMP 96.9; O2SAT 97
[2023-06-26] MEDS ORDERED: APIXABAN 5 MG TABLET PO SCH (09:00)
[2023-06-26] MEDS ORDERED: CARVEDILOL 6.25 MG TABLET PO SCH (09:00)
[2023-06-26] MEDS ORDERED: DIGOXIN INJ 0.5 MG/2 ML AMPUL IV SCH (12:00)
== END 2023-06-26 09:51 | disposition left against medical advice (07) | DRG 201 ==
LOC: ER 16:47 → ICU 06-26 02:02
PROVIDERS: ADMIT Internal Medicine; ATTEND Nurse Practitioner Family
DX: I48.91 Unspecified atrial fibrillation (principal); I63.9 Cerebral infarction, unspecified; I50.43 Acute on chronic combined systolic (congestive) and diastolic (congestive) heart failure; N17.9 Acute kidney failure, unspecified; E87.1 Hypo-osmolality and hyponatremia; D68.9 Coagulation defect, unspecified; I48.92 Unspecified atrial flutter; F15.10 Other stimulant abuse, uncomplicated; M89.8X9 Other specified disorders of bone, unspecified site; Z79.01 Long term (current) use of anticoagulants; N18.9 Chronic kidney disease, unspecified; Z91.199 Patient's noncompliance with other medical treatment and regimen due to unspecified reason; N50.89 Other specified disorders of the male genital organs; I13.0 Hypertensive heart and chronic kidney disease with heart failure and stage 1 through stage 4 chronic kidney disease, or unspecified chronic kidney disease; N48.89 Other specified disorders of penis; R29.810 Facial weakness; Z79.84 Long term (current) use of oral hypoglycemic drugs; Z79.899 Other long term (current) drug therapy; E11.22 Type 2 diabetes mellitus with diabetic chronic kidney disease; R29.700 NIHSS score 0
CPT/HCPCS: 36415; 70450-TC; 71045-TC; 76870-TC; 80048-TC; 81001; 83605-TC; 83880; 84439-TC; 84443-TC; 84481; 84484-TC; 85025-TC; 85730-TC; 87081-TC; 93307-TC; A4223; G0378; J0282; J1650; J1940; J3490; J7030; J7060

== ENCOUNTER 2023-06-26 21:32 | Inpatient (IN) | payer OTHER ==
[~2023-06-26] VITALS: Ht 177.8 cm; Wt 88.5 kg
[~2023-06-26 21:32] MED LIST changes: -ALBU6.7H9 IH; +BICT1TAB PO; -CARV12.5 PO; +DILT180C93 PO; -FURO-144 PO; +FURO-145 PO; +LEVO88TA5 PO; -POTA10CA43 PO; -SACU1TAB7 PO; -SPIR50TA5 PO
[2023-06-26 22:46] LABS: BASOPHILS # (AUTO) 0.1 K/uL (0.0-0.2); BASOPHILS % (AUTO) 0.8 % (0.0-2.0); EOSINOPHILS # (AUTO) 0.2 K/uL (0.0-0.7); EOSINOPHILS % (AUTO) 3.9 % (0.0-6.0); HEMATOCRIT 43 % (39-51); HEMOGLOBIN 13.8 g/dL (13.5-17.5); LYMPHOCYTES # (AUTO) 1.3 K/uL (0.8-4.8); MEAN CORPUSCULAR HEMOGLOBIN 29 PG (26.0-33.0); MEAN CORPUSCULAR HGB CONC 33 g/dl (31.0-36.0); MEAN CORPUSCULAR VOLUME 90 fL (80-96); MONOCYTES # (AUTO) 0.4 K/uL (0.1-1.30); MONOCYTES % (AUTO) 6.7 % (2.0-12.0); NEUTROPHILS % (AUTO) 66.6 % (43.0-81.0); PLATELET COUNT (AUTO) 234 K/uL (150-450); RED BLOOD CELL COUNT(AUTO) 4.73 MIL/uL (4.5-6.0)
[2023-06-26 22:54] LABS: APPEARANCE,URINE CLEAR (CLEAR); BILIRUBIN,URINE NEGATIVE (NEGATIVE); BLOOD, URINE NEGATIVE Ery/uL (NEGATIVE); COLOR,URINE YELLOW (YELLOW); KETONES,URINE NEGATIVE (NEGATIVE); LEUKOCYTE ESTERASE ,URINE NEGATIVE (NEGATIVE); NITRITE, URINE NEGATIVE (NEGATIVE); PH,URINE 5.5 (5.0-8.0); PROTEIN,URINE TRACE mg/dl (NEGATIVE); UGLUCOSE NEGATIVE (NEGATIVE)
[2023-06-26 22:55] LABS: CALCIUM, SERUM 8.9 mg/dL (8.5-10.1); CREATININE 1.6 mg/dL (0.6-1.3); POTASSIUM 3.8 mmol/L (3.5-5.1)
[2023-06-26] MEDS ORDERED: FUROSEMIDE 40 MG/4 ML VIAL ONE (23:46)
[2023-06-27] MEDS ORDERED: FUROSEMIDE 40 MG/4 ML VIAL IV ONE
[2023-06-27] MEDS ORDERED: METOPROLOL TARTRATE 25 MG TABLET ONE (00:26)
[2023-06-27] MEDS ORDERED: METOPROLOL TARTRATE 25 MG TABLET PO ONE (00:30)
[2023-06-27] MEDS ORDERED: Z GUARD REMEDY 4 OZ OINT TP PRN (01:00)
[2023-06-27] MEDS ORDERED: HYDROCODONE/APAP 5/325MG TABLET PO PRN (01:00)
[2023-06-27] MEDS ORDERED: ONDANSETRON HCL/PF 4 MG/2 ML VIAL IVP PRN (01:00)
[2023-06-27] MEDS ORDERED: TEMAZEPAM 15 MG CAPSULE PO PRN (01:00)
[2023-06-27] MEDS ORDERED: ACETAMINOPHEN 325 MG TABLET PO PRN (01:00)
[2023-06-27] MEDS ORDERED: MAG HYDROX/AL HYDROX/SIMETH 30 ML UDC PO PRN (01:00)
[2023-06-27] MEDS ORDERED: MAGNESIUM HYDROXIDE 30 ML UDC PO PRN (01:00)
[2023-06-27] MEDS ORDERED: MORPHINE SULFATE INJ 4 MG/ML DISP.SYRIN IV PRN (06:30)
[2023-06-27] MEDS ORDERED: PANTOPRAZOLE 40 MG TABLET.DR PO SCH (07:30)
[2023-06-27] MEDS ORDERED: DILTIAZEM HCL CD 180 MG PO SCH (09:00)
[2023-06-27] MEDS ORDERED: FUROSEMIDE 40 MG/4 ML VIAL IV SCH (09:00)
[2023-06-27] MEDS ORDERED: EMPAGLIFLOZIN 25 MG TABLET PO SCH (09:00)
[2023-06-27] MEDS ORDERED: LEVOTHYROXINE SODIUM 88 MCG TABLET PO SCH (09:00)
[2023-06-27] MEDS: APIXABAN 5 MG TABLET PO SCH ×2 (09:00→17:31)
[2023-06-27] MEDS ORDERED: DILTIAZEM HCL CD 180 MG ONE (11:41)
[2023-06-27] MEDS ORDERED: FUROSEMIDE 40 MG/4 ML VIAL ONE (11:41)
[2023-06-27] MEDS ORDERED: LEVOTHYROXINE SODIUM 88 MCG TABLET ONE (11:41)
[2023-06-27] MEDS ORDERED: APIXABAN 5 MG TABLET ONE (11:41)
[2023-06-27] MEDS ORDERED: PANTOPRAZOLE 40 MG TABLET.DR PO ONE (11:42)
[2023-06-27] MEDS ORDERED: LEVOFLOXACIN (250MG) 250 MG TABLET PO SCH ×2 (13:30→14:30)
[2023-06-27] MEDS ORDERED: CEFTRIAXONE 1 G in IV D5W 50 ML IV ONE (13:30)
[2023-06-27] MEDS ORDERED: LEVOFLOXACIN (250MG) 250 MG TABLET ONE (14:38)
[2023-06-27 20:00] VITALS: BP 108/89; TEMP 97.5; O2SAT 96
[2023-06-27] MEDS ORDERED: ATORVASTATIN 40 MG TABLET PO SCH (22:00)
[2023-06-28] VITALS: BP 114/99; TEMP 97.9; O2SAT 98
[2023-06-28] MEDS ORDERED: ASPIRIN EC 81 MG TABLET.DR PO SCH (09:00)
[2023-06-28] MEDS ORDERED: MUPIROCIN OINT 2% 22 GM TUBE NS SCH (09:00)
[2023-06-29] MEDS ORDERED: CLIN300C12 PO (16:44)
[2023-06-29] MEDS ORDERED: IBUP-1955 PO (16:44)
== END 2023-06-28 04:20 | disposition left against medical advice (07) | DRG 501 ==
LOC: ER 21:34 → TELE 06-27 16:15
PROVIDERS: ADMIT Nurse Practitioner Family; ATTEND Nurse Practitioner Family
DX: N45.1 Epididymitis (principal); I50.43 Acute on chronic combined systolic (congestive) and diastolic (congestive) heart failure; N17.9 Acute kidney failure, unspecified; E87.1 Hypo-osmolality and hyponatremia; I48.92 Unspecified atrial flutter; I13.0 Hypertensive heart and chronic kidney disease with heart failure and stage 1 through stage 4 chronic kidney disease, or unspecified chronic kidney disease; Z79.01 Long term (current) use of anticoagulants; Z91.199 Patient's noncompliance with other medical treatment and regimen due to unspecified reason; F32.A Depression, unspecified; Z79.890 Hormone replacement therapy; Z79.899 Other long term (current) drug therapy; F19.90 Other psychoactive substance use, unspecified, uncomplicated; Z53.29 Procedure and treatment not carried out because of patient's decision for other reasons; Z79.84 Long term (current) use of oral hypoglycemic drugs; N18.9 Chronic kidney disease, unspecified; I48.91 Unspecified atrial fibrillation
CPT/HCPCS: 36415; 71045-TC; 80048-TC; 83880; 84484-TC; 85025-TC; G0378; J0696; J1940; J7060

== ENCOUNTER 2023-06-29 15:33 | Emergency (ER) | payer OTHER ==
[~2023-06-29] VITALS: Ht 177.8 cm; Wt 79.4 kg
[2023-06-29] MEDS ORDERED: IBUP-1955 PO (16:44)
[2023-06-29] MEDS ORDERED: CLIN300C12 PO (16:44)
[2023-06-29 18:22] VITALS: BP 121/77; TEMP 97.9; O2SAT 97
== END 2023-06-29 18:23 | disposition home or self-care (01) ==
LOC: ER 15:43
DX: N45.1 Epididymitis (principal); I10 Essential (primary) hypertension; F32.A Depression, unspecified; Z60.2 Problems related to living alone

== ENCOUNTER 2023-07-01 12:08 | Inpatient (IN) | payer OTHER ==
[~2023-07-01] VITALS: Ht 177.8 cm; Wt 91.6 kg
[~2023-07-01 12:08] MED LIST changes: +IBUP-1955 PO
[2023-07-01 14:10] LABS: BASOPHILS % (AUTO) 0.8 % (0.0-2.0); EOSINOPHILS # (AUTO) 0.2 K/uL (0.0-0.7); EOSINOPHILS % (AUTO) 3.4 % (0.0-6.0); HEMATOCRIT 43 % (39-51); HEMOGLOBIN 13.8 g/dL (13.5-17.5); LYMPHOCYTES # (AUTO) 1.3 K/uL (0.8-4.8); LYMPHOCYTES % (AUTO) 22.7 % (20.0-44.0); MEAN CORPUSCULAR HEMOGLOBIN 29 PG (26.0-33.0); MEAN CORPUSCULAR HGB CONC 32 g/dl (31.0-36.0); MEAN CORPUSCULAR VOLUME 91 fL (80-96); MONOCYTES # (AUTO) 0.5 K/uL (0.1-1.30); MONOCYTES % (AUTO) 8.4 % (2.0-12.0); NEUTROPHILS # (AUTO) 3.7 K/uL (1.8-8.9); NEUTROPHILS % (AUTO) 64.7 % (43.0-81.0); PLATELET COUNT (AUTO) 253 K/uL (150-450); RED BLOOD CELL COUNT(AUTO) 4.74 MIL/uL (4.5-6.0); RED CELL DISTRIBUTION WIDTH 16.6 % (11.5-15.0); WHITE BLOOD COUNT (AUTO) 5.7 K/uL (4.3-11.0)
[2023-07-01 14:17] LABS: CALCIUM, SERUM 8.8 mg/dL (8.5-10.1); CREATININE 1.4 mg/dL (0.6-1.3); POTASSIUM 4.2 mmol/L (3.5-5.1)
[2023-07-01] MEDS ORDERED: NITROGLYCERIN PACKET 1 GM PACKET TD ONE (14:30)
[2023-07-01] MEDS ORDERED: FUROSEMIDE 40 MG/4 ML VIAL IV ONE (14:30)
[2023-07-01] MEDS ORDERED: ASPIRIN 325 MG TABLET PO ONE (14:30)
[2023-07-01 14:37] LABS: NT-PRO BNP 8511 pg/mL (0-125)
[2023-07-01] MEDS ORDERED: NITROGLYCERIN PACKET 1 GM PACKET ONE (15:11)
[2023-07-01] MEDS ORDERED: FUROSEMIDE 40 MG/4 ML VIAL ONE (15:11)
[2023-07-01] MEDS ORDERED: DILTIAZEM HCL 50 MG IV IV ONE (15:30)
[2023-07-01] MEDS ORDERED: DILTIAZEM HCL 25 MG IV ONE (15:32)
[2023-07-01 18:24] LABS: APPEARANCE,URINE CLEAR (CLEAR); BILIRUBIN,URINE NEGATIVE (NEGATIVE); BLOOD, URINE NEGATIVE Ery/uL (NEGATIVE); COLOR,URINE YELLOW (YELLOW); KETONES,URINE NEGATIVE (NEGATIVE); LEUKOCYTE ESTERASE ,URINE NEGATIVE (NEGATIVE); NITRITE, URINE NEGATIVE (NEGATIVE); PH,URINE 5.5 (5.0-8.0); PROTEIN,URINE TRACE mg/dl (NEGATIVE); UGLUCOSE NEGATIVE (NEGATIVE)
[2023-07-01] MEDS ORDERED: Z GUARD REMEDY 4 OZ OINT TP PRN (18:30)
[2023-07-01] MEDS ORDERED: MAGNESIUM HYDROXIDE 30 ML UDC PO PRN (18:30)
[2023-07-01] MEDS ORDERED: ONDANSETRON HCL/PF 4 MG/2 ML VIAL IVP PRN (18:30)
[2023-07-01] MEDS ORDERED: ACETAMINOPHEN 325 MG TABLET PO PRN (18:30)
[2023-07-01] MEDS ORDERED: ZOLPIDEM TARTRATE 5 MG TABLET PO PRN (18:30)
[2023-07-01] MEDS ORDERED: MAG HYDROX/AL HYDROX/SIMETH 30 ML UDC PO PRN (18:30)
[2023-07-01 18:31] LABS: ADD URINE CULTURE NO; BACTERIA,URINE None seen /HPF (None Seen); RBC,URINE 0-2 /HPF (0-2); SQUAMOUS EPITHELIAL CELL,UR 0-2 /HPF (None Seen); WBC,URINE 0-2 /HPF (0-3)
[2023-07-01] MEDS ORDERED: ENOXAPARIN SODIUM 40 MG/0.4 ML DISP.SYRIN SQ ONE (20:27)
[2023-07-01] MEDS: CLINDAMYCIN 600 MG in IV D5W 50 ML IV SCH (21:00)
[2023-07-01] MEDS ORDERED: ENOXAPARIN SODIUM 40 MG/0.4 ML DISP.SYRIN SQ SCH (21:00)
[2023-07-01] MEDS ORDERED: CLINDAMYCIN IV RTU IN D5W 600 MG/50 ML PIGGYBACK IV SCH (21:00)
[2023-07-01 23:41] VITALS: BP 93/79; TEMP 97.7; O2SAT 94
[2023-07-02 00:54] VITALS: BP 106/86; TEMP 97.9
[2023-07-02] MEDS ORDERED: AMIODARONE 450 MG in IV D5W 241 ML IV PRN (04:00)
[2023-07-02] MEDS ORDERED: AMIODARONE 150 MG in IV D5W 100 ML IV ONE (04:00)
[2023-07-02] MEDS: CLINDAMYCIN 600 MG in IV D5W 50 ML IV SCH (04:01)
[2023-07-02 05:17] VITALS: BP 116/93; TEMP 97.8; O2SAT 97
[2023-07-02] MEDS ORDERED: PANTOPRAZOLE 40 MG TABLET.DR PO SCH (07:30)
[2023-07-02] MEDS ORDERED: LEVOTHYROXINE SODIUM 88 MCG TABLET PO SCH (07:30)
[2023-07-02 08:00] VITALS: BP 137/90; TEMP 97.7; O2SAT 100
[2023-07-02 08:33] VITALS: BP 137/90
[2023-07-02] MEDS ORDERED: FUROSEMIDE 20 MG TABLET PO SCH (09:00)
[2023-07-02] MEDS ORDERED: EMPAGLIFLOZIN 25 MG TABLET PO SCH (09:00)
[2023-07-02] MEDS ORDERED: DILTIAZEM HCL CD 180 MG PO SCH (09:00)
[2023-07-02] MEDS ORDERED: HYDROGEL DRESSING 90 GM TUBE TP SCH (09:30)
[2023-07-02] MEDS ORDERED: HYDROGEL DRESSING 90 GM TUBE TP PRN (09:30)
[2023-07-03] MEDS ORDERED: DILTIAZEM HCL CD 180 MG PO SCH (09:00)
== END 2023-07-02 10:15 | disposition left against medical advice (07) | DRG 201 ==
LOC: ER 12:09 → TRANSITION 17:09 → TELE1 20:59 → TELE-TD 07-02 03:35 → TELE1 07-02 04:03
PROVIDERS: ADMIT Student in an Organized Health Care Education/Training Program; ATTEND Student in an Organized Health Care Education/Training Program
DX: I48.92 Unspecified atrial flutter (principal); I11.0 Hypertensive heart disease with heart failure; L03.115 Cellulitis of right lower limb; I50.9 Heart failure, unspecified; I48.91 Unspecified atrial fibrillation; Z79.01 Long term (current) use of anticoagulants; Z91.199 Patient's noncompliance with other medical treatment and regimen due to unspecified reason; Z79.899 Other long term (current) drug therapy
CPT/HCPCS: 36415; 71045-TC; 76870-TC; 80048-TC; 81001; 83880; 84484-TC; 85025-TC; 87086-TC; A4223; A6248; G0378; J0282; J1650; J1940; J3490; J7060

== ENCOUNTER 2023-07-02 15:56 | Inpatient (IN) | payer OTHER ==
[~2023-07-02] VITALS: Ht 177.8 cm; Wt 89.8 kg
[~2023-07-02 15:56] MED LIST changes: -APIX5TAB PO; -IBUP-1955 PO
[2023-07-02 17:12] LABS: BASOPHILS # (AUTO) 0.1 K/uL (0.0-0.2); EOSINOPHILS # (AUTO) 0.2 K/uL (0.0-0.7); EOSINOPHILS % (AUTO) 3.6 % (0.0-6.0); HEMATOCRIT 41 % (39-51); HEMOGLOBIN 13.1 g/dL (13.5-17.5); LYMPHOCYTES # (AUTO) 1.4 K/uL (0.8-4.8); LYMPHOCYTES % (AUTO) 22.3 % (20.0-44.0); MEAN CORPUSCULAR HEMOGLOBIN 29 PG (26.0-33.0); MEAN CORPUSCULAR HGB CONC 32 g/dl (31.0-36.0); MEAN CORPUSCULAR VOLUME 90 fL (80-96); MONOCYTES # (AUTO) 0.5 K/uL (0.1-1.30); MONOCYTES % (AUTO) 7.6 % (2.0-12.0); NEUTROPHILS # (AUTO) 4.1 K/uL (1.8-8.9); NEUTROPHILS % (AUTO) 65.5 % (43.0-81.0); PLATELET COUNT (AUTO) 251 K/uL (150-450); RED BLOOD CELL COUNT(AUTO) 4.52 MIL/uL (4.5-6.0); RED CELL DISTRIBUTION WIDTH 15.9 % (11.5-15.0); WHITE BLOOD COUNT (AUTO) 6.3 K/uL (4.3-11.0)
[2023-07-02 17:43] LABS: INR 1.51 (0.91-1.10); PARTIAL THROMBOPLASTIN TIME 27.7 SEC (24.3-34.3); PROTHROMBIN TIME 15.6 SECS (9.2-11.1)
[2023-07-02] MEDS ORDERED: FUROSEMIDE 40 MG/4 ML VIAL IV ONE (18:00)
[2023-07-02 18:07] LABS: CALCIUM, SERUM 8.5 mg/dL (8.5-10.1); CREATININE 1.5 mg/dL (0.6-1.3); POTASSIUM 4.5 mmol/L (3.5-5.1)
[2023-07-02 18:19] LABS: ALBUMIN 3.1 g/dL (3.4-5.0); BILIRUBIN,DIRECT 0.7 mg/dL (0.0-0.2); BILIRUBIN,TOTAL 1.6 mg/dL (0.2-1.0); TOTAL PROTEIN, SERUM 7.4 g/dL (6.4-8.2)
[2023-07-02] MEDS ORDERED: FUROSEMIDE 40 MG/4 ML VIAL ONE (18:32)
[2023-07-02] MEDS ORDERED: AMIODARONE 450 MG in IV D5W 241 ML IV PRN (19:30)
[2023-07-02] MEDS ORDERED: AMIODARONE 150 MG in IV D5W 100 ML IV ONE (19:30)
[2023-07-02] MEDS ORDERED: MORPHINE SULFATE INJ 2 MG/ML DISP.SYRIN IV PRN (21:30)
[2023-07-02] MEDS ORDERED: ONDANSETRON HCL/PF 4 MG/2 ML VIAL IVP PRN (21:30)
[2023-07-02] MEDS ORDERED: Z GUARD REMEDY 4 OZ OINT TP PRN (21:30)
[2023-07-02] MEDS ORDERED: HYDROCODONE/APAP 5/325MG TABLET PO PRN (21:30)
[2023-07-02] MEDS ORDERED: ACETAMINOPHEN 325 MG TABLET PO PRN (21:30)
[2023-07-02] MEDS ORDERED: TEMAZEPAM 15 MG CAPSULE PO PRN (21:30)
[2023-07-02] MEDS ORDERED: MAG HYDROX/AL HYDROX/SIMETH 30 ML UDC PO PRN (21:30)
[2023-07-02] MEDS ORDERED: MAGNESIUM HYDROXIDE 30 ML UDC PO PRN (21:30)
[2023-07-02] MEDS ORDERED: LORAZEPAM 1 MG TABLET PO PRN (22:00)
[2023-07-02] MEDS ORDERED: ATORVASTATIN 40 MG TABLET PO SCH (22:00)
[2023-07-02 22:52] VITALS: BP 103/90; TEMP 98.1
[2023-07-03 01:06] VITALS: O2SAT 93
[2023-07-03] MEDS ORDERED: PANTOPRAZOLE 40 MG TABLET.DR PO SCH (07:30)
[2023-07-03] MEDS ORDERED: APIXABAN 5 MG TABLET PO SCH (09:00)
[2023-07-03] MEDS ORDERED: ASPIRIN 81 MG TAB.CHEW PO SCH (09:00)
[2023-07-03] MEDS ORDERED: FUROSEMIDE 40 MG/4 ML VIAL IV SCH (09:00)
[2023-07-03] MEDS ORDERED: CLINDAMYCIN HCL 150 MG CAPSULE PO SCH (09:00)
== END 2023-07-03 12:00 | disposition left against medical advice (07) | DRG 201 ==
LOC: ER 17:30 → TRANSITION 22:07 → UNDOADMIN 22:07 → ER 07-03 07:52
PROVIDERS: ADMIT Nurse Practitioner Acute Care; ATTEND Nurse Practitioner Acute Care
DX: I48.92 Unspecified atrial flutter (principal); I11.0 Hypertensive heart disease with heart failure; I50.22 Chronic systolic (congestive) heart failure; F29 Unspecified psychosis not due to a substance or known physiological condition; G72.9 Myopathy, unspecified; I48.91 Unspecified atrial fibrillation; F32.A Depression, unspecified; L02.31 Cutaneous abscess of buttock; N50.89 Other specified disorders of the male genital organs; Z96.641 Presence of right artificial hip joint; Z91.011 Allergy to milk products; Z79.890 Hormone replacement therapy; Z79.84 Long term (current) use of oral hypoglycemic drugs; Z79.899 Other long term (current) drug therapy; Z91.148 Patient's other noncompliance with medication regimen for other reason; Z91.199 Patient's noncompliance with other medical treatment and regimen due to unspecified reason; I34.0 Nonrheumatic mitral (valve) insufficiency; F19.10 Other psychoactive substance abuse, uncomplicated; Z21 Asymptomatic human immunodeficiency virus [HIV] infection status
CPT/HCPCS: 36415; 71045-TC; 80048-TC; 80076-TC; 83880; 84484-TC; 85025-TC; 85730-TC; 87081-TC; G0378; J0282; J1940; J2270; J2405; J7060

== ENCOUNTER 2023-09-04 12:34 | Inpatient (IN) | payer OTHER ==
[2023-09-04] VITALS (15 sets, daily range): BP systolic 103–134; BP diastolic 71–91; TEMP 97–97.9; O2SAT 88–99
[~2023-09-04] VITALS: Ht 177.8 cm; Wt 77.7 kg
[2023-09-04] MEDS ORDERED: DILTIAZEM HCL 25 MG IV ONE (12:58)
[2023-09-04] MEDS ORDERED: DILTIAZEM HCL IV 125 MG in IV D5W 100 ML IV ONE (13:00)
[2023-09-04] MEDS: IV NS 0.9% 1,000 ML BAG IV ONE (13:00)
[2023-09-04] MEDS: DILTIAZEM HCL 25 MG IV IVP ONE (13:10)
[2023-09-04] MEDS: DILTIAZEM HCL IV 125 MG in IV NS 0.9% 100 ML IV PRN (13:20)
[2023-09-04 14:18] LABS: BASOPHILS % (AUTO) 0.3 % (0.0-2.0); EOSINOPHILS % (AUTO) 0.2 % (0.0-6.0); HEMATOCRIT 42 % (39-51); HEMOGLOBIN 13.5 g/dL (13.5-17.5); LYMPHOCYTES # (AUTO) 0.8 K/uL (0.8-4.8); LYMPHOCYTES % (AUTO) 8.9 % (20.0-44.0); MEAN CORPUSCULAR HEMOGLOBIN 27 PG (26.0-33.0); MEAN CORPUSCULAR HGB CONC 32 g/dl (31.0-36.0); MEAN CORPUSCULAR VOLUME 85 fL (80-96); MONOCYTES # (AUTO) 0.7 K/uL (0.1-1.30); MONOCYTES % (AUTO) 8.4 % (2.0-12.0); NEUTROPHILS # (AUTO) 7.1 K/uL (1.8-8.9); NEUTROPHILS % (AUTO) 82.2 % (43.0-81.0); PLATELET COUNT (AUTO) 273 K/uL (150-450); RED CELL DISTRIBUTION WIDTH 19.2 % (11.5-15.0); WHITE BLOOD COUNT (AUTO) 8.6 K/uL (4.3-11.0)
[2023-09-04] MEDS ORDERED: LEVOFLOXACIN 750 MG /D5W 150ML 150 ML IV ONE (14:26)
[2023-09-04] MEDS: LEVOFLOXACIN 750 MG /D5W 150ML PIGGYBACK IV ONE (14:35)
[2023-09-04] MEDS ORDERED: DAPA10TA PO (14:42)
[2023-09-04] MEDS ORDERED: SPIR25TA PO (14:42)
[2023-09-04] MEDS ORDERED: FUROSEMIDE 40 MG/4 ML VIAL ONE (15:10)
[2023-09-04] MEDS ORDERED: ASPIRIN 81 MG TAB.CHEW ONE (15:10)
[2023-09-04] MEDS: ASPIRIN 81 MG TAB.CHEW PO ONE (15:15)
[2023-09-04] MEDS: FUROSEMIDE 40 MG/4 ML VIAL IV ONE (15:15)
[2023-09-04] MEDS ORDERED: DIGOXIN INJ 0.5 MG/2 ML AMPUL ONE (15:20)
[2023-09-04] MEDS ORDERED: METOPROLOL TARTRATE INJ 5 MG/5 ML AMPUL ONE (15:21)
[2023-09-04] MEDS: DIGOXIN INJ 0.5 MG/2 ML AMPUL IV ONE (15:27)
[2023-09-04] MEDS: METOPROLOL TARTRATE INJ 5 MG/5 ML AMPUL IV ONE (15:29)
[2023-09-04 15:30] LABS: CALCIUM, SERUM 9.3 mg/dL (8.5-10.1); CARBON DIOXIDE 18 mmol/L (21-32); CHLORIDE 96 mmol/L (98-107); CREATININE 2.3 mg/dL (0.6-1.3); GLUCOSE 74 mg/dL (74-106); NT-PRO BNP 23255 pg/mL (0-125); POTASSIUM 4.9 mmol/L (3.5-5.1); SODIUM SERUM 136 mmol/L (136-145); UREA NITROGEN, BLOOD 51 mg/dL (7-18)
[2023-09-04] MEDS ORDERED: MAGNESIUM HYDROXIDE 30 ML UDC PO PRN (17:30)
[2023-09-04] MEDS ORDERED: Z GUARD REMEDY 4 OZ OINT TP PRN (17:30)
[2023-09-04] MEDS ORDERED: ACETAMINOPHEN 325 MG TABLET PO PRN (17:30)
[2023-09-04] MEDS ORDERED: MAG HYDROX/AL HYDROX/SIMETH 30 ML UDC PO PRN (17:30)
[2023-09-04] MEDS ORDERED: ONDANSETRON HCL/PF 4 MG/2 ML VIAL IVP PRN (17:30)
[2023-09-04] MEDS: ENOXAPARIN SODIUM 40 MG/0.4 ML DISP.SYRIN SQ SCH (21:51)
[2023-09-05] VITALS (22 sets, daily range): BP systolic 105–147; BP diastolic 54–119; TEMP 94.4–98.9; O2SAT 71–99
[2023-09-05 03:41] LABS: BASOPHILS % (AUTO) 0.2 % (0.0-2.0); EOSINOPHILS % (AUTO) 0.2 % (0.0-6.0); HEMATOCRIT 39 % (39-51); HEMOGLOBIN 12.7 g/dL (13.5-17.5); LYMPHOCYTES # (AUTO) 0.8 K/uL (0.8-4.8); LYMPHOCYTES % (AUTO) 9.5 % (20.0-44.0); MEAN CORPUSCULAR HEMOGLOBIN 28 PG (26.0-33.0); MEAN CORPUSCULAR HGB CONC 32 g/dl (31.0-36.0); MEAN CORPUSCULAR VOLUME 86 fL (80-96); MONOCYTES # (AUTO) 0.7 K/uL (0.1-1.30); MONOCYTES % (AUTO) 8.2 % (2.0-12.0); NEUTROPHILS # (AUTO) 6.6 K/uL (1.8-8.9); NEUTROPHILS % (AUTO) 81.9 % (43.0-81.0); PLATELET COUNT (AUTO) 259 K/uL (150-450); RED BLOOD CELL COUNT(AUTO) 4.59 MIL/uL (4.5-6.0); RED CELL DISTRIBUTION WIDTH 19.6 % (11.5-15.0)
[2023-09-05 04:03] LABS: ALBUMIN 2.8 g/dL (3.4-5.0); BILIRUBIN,TOTAL 3.1 mg/dL (0.2-1.0); CALCIUM, SERUM 8.7 mg/dL (8.5-10.1); CREATININE 2.2 mg/dL (0.6-1.3); MAGNESIUM 2.3 mg/dL (1.8-2.4); PHOSPHORUS 4.6 mg/dL (2.5-4.9); POTASSIUM 4.2 mmol/L (3.5-5.1); TOTAL PROTEIN, SERUM 7.4 g/dL (6.4-8.2)
[2023-09-05] MEDS ORDERED: EMPAGLIFLOZIN 25 MG TABLET PO SCH (09:00)
[2023-09-05] MEDS ORDERED: FUROSEMIDE 20 MG TABLET PO SCH (09:00)
[2023-09-05] MEDS: FUROSEMIDE 40 MG/4 ML VIAL IV SCH (09:26)
[2023-09-05] MEDS: SPIRONOLACTONE 25 MG TABLET PO SCH (09:30)
[2023-09-05] MEDS: LEVOTHYROXINE SODIUM 88 MCG TABLET PO SCH (09:30)
[2023-09-05] MEDS: DILTIAZEM HCL CD 180 MG PO SCH (09:30)
[2023-09-05] MEDS: ZOSYN IVPB 2.25 G in IV D5W 50ml IV SCH (09:31)
[2023-09-05] MEDS: DAPAGLIFLOZIN PROPANEDIOL 5 MG TABLET PO SCH (09:31)
[2023-09-05] MEDS ORDERED: PIPERACILLIN /TAZOBACTAM 4.5 G in IV D5W 50 ML IV SCH (12:00)
[2023-09-05] MEDS: IV NS 0.9% 250 ML IV PRN (12:07)
[2023-09-05] MEDS: DIGOXIN 0.125 MG TABLET PO SCH (12:31)
[2023-09-05] MEDS: METOPROLOL TARTRATE 25 MG TABLET PO SCH (14:04)
[2023-09-05 17:38] LABS: APPEARANCE,URINE CLEAR (CLEAR); BILIRUBIN,URINE NEGATIVE (NEGATIVE); BLOOD, URINE TRACE-INTA Ery/uL (NEGATIVE); COLOR,URINE YELLOW (YELLOW); KETONES,URINE NEGATIVE (NEGATIVE); LEUKOCYTE ESTERASE ,URINE NEGATIVE (NEGATIVE); NITRITE, URINE NEGATIVE (NEGATIVE); PH,URINE 5.5 (5.0-8.0); PROTEIN,URINE NEGATIVE (NEGATIVE); UGLUCOSE 2+ mg/dL (NEGATIVE)
[2023-09-05 17:53] LABS: ADD URINE CULTURE NO; BACTERIA,URINE None seen /HPF (None Seen); CREATININE, URINE < 13.0 MG/DL (30.0-125.0); SQUAMOUS EPITHELIAL CELL,UR None Seen /HPF (None Seen); URINE SODIUM, RANDOM 82 mmol/l (40-220); URINE TOTAL PROTEIN 3.3 mg/dL (0-11.9); WBC,URINE NONE SEEN /HPF (0-3)
[2023-09-05 18:42] LABS: EOSINOPHIL,URINE None Seen
[2023-09-06] VITALS (8 sets, daily range): BP systolic 93–125; BP diastolic 77–90; TEMP 96.5–99.3; O2SAT 94–100
[2023-09-06 07:18] LABS: BASOPHILS % (AUTO) 0.2 % (0.0-2.0); EOSINOPHILS # (AUTO) 0.1 K/uL (0.0-0.7); EOSINOPHILS % (AUTO) 1.6 % (0.0-6.0); HEMATOCRIT 39 % (39-51); HEMOGLOBIN 12.7 g/dL (13.5-17.5); LYMPHOCYTES # (AUTO) 0.8 K/uL (0.8-4.8); LYMPHOCYTES % (AUTO) 12.6 % (20.0-44.0); MEAN CORPUSCULAR HEMOGLOBIN 27 PG (26.0-33.0); MEAN CORPUSCULAR HGB CONC 32 g/dl (31.0-36.0); MEAN CORPUSCULAR VOLUME 84 fL (80-96); MONOCYTES # (AUTO) 0.4 K/uL (0.1-1.30); MONOCYTES % (AUTO) 6.5 % (2.0-12.0); NEUTROPHILS # (AUTO) 5.1 K/uL (1.8-8.9); NEUTROPHILS % (AUTO) 79.1 % (43.0-81.0); PLATELET COUNT (AUTO) 249 K/uL (150-450); RED BLOOD CELL COUNT(AUTO) 4.68 MIL/uL (4.5-6.0); RED CELL DISTRIBUTION WIDTH 18.9 % (11.5-15.0); WHITE BLOOD COUNT (AUTO) 6.5 K/uL (4.3-11.0)
[2023-09-06 07:57] LABS: ALBUMIN 2.4 g/dL (3.4-5.0); BILIRUBIN,TOTAL 2.2 mg/dL (0.2-1.0); CALCIUM, SERUM 8.3 mg/dL (8.5-10.1); CREATININE 1.3 mg/dL (0.6-1.3); MAGNESIUM 2.2 mg/dL (1.8-2.4); PHOSPHORUS 3.1 mg/dL (2.5-4.9); POTASSIUM 3.4 mmol/L (3.5-5.1); TOTAL PROTEIN, SERUM 6.7 g/dL (6.4-8.2)
[2023-09-06] MEDS: POTASSIUM CHLORIDE 20 MEQ TAB.PRT.SR PO SCH (11:21)
[2023-09-06] MEDS: RALTEGRAVIR POTASSIUM 400 MG TABLET PO SCH (17:39)
[2023-09-06] MEDS: PIPERACILLIN /TAZOBACTAM 3.375 G in IV D5W 100 ML IV SCH (18:14)
[2023-09-07] VITALS: BP 109/78; TEMP 97.7; O2SAT 95
[2023-09-07 04:00] VITALS: BP 108/80; TEMP 97.7; O2SAT 95
[2023-09-07 08:00] VITALS: BP 105/78; TEMP 98.1; O2SAT 95
[2023-09-07 08:10] LABS: PTH, INTACT 20 pg/mL (15-65)
[2023-09-07] MEDS: EMTRICITABINE/TENOFOVIR 1 TAB PO SCH (09:16)
[2023-09-07 12:00] VITALS: BP 105/80; TEMP 97.3; O2SAT 95
[2023-09-07 12:11] LABS: *SPE A/G RATIO 0.7 (0.7-1.7); *SPE ALBUMIN 2.7 g/dL (2.9-4.4); *SPE ALPHA-1-GLOBULIN 0.3 g/dL (0.0-0.4); *SPE ALPHA-2-GLOBULIN 0.5 g/dL (0.4-1.0); *SPE GLOBULIN, TOTAL 3.7 g/dL (2.2-3.9); *SPE M-SPIKE Not Observed g/dL (Not Observed); *SPE PROTEIN TOTAL 6.4 g/dL (6.0-8.5); *SPEGAMMA GLOBULIN 1.9 g/dL (0.4-1.8)
[2023-09-07 16:00] VITALS: BP 108/79; TEMP 97.4; O2SAT 95
[2023-09-07 20:00] VITALS: BP 98/78; TEMP 97.3; O2SAT 98
[2023-09-07] MEDS: METOPROLOL TARTRATE 50 MG TABLET PO SCH (21:00)
[2023-09-07] MEDS: MUPIROCIN OINT 2% 22 GM TUBE NS SCH (21:16)
[2023-09-08] VITALS: BP 105/80; TEMP 97.7; O2SAT 94
[2023-09-08 04:00] VITALS: BP 102/76; TEMP 97.3; O2SAT 97
[2023-09-08 08:00] VITALS: BP 116/80; TEMP 98.1; O2SAT 100
[2023-09-08 09:30] LABS: BASOPHILS % (AUTO) 0.5 % (0.0-2.0); EOSINOPHILS # (AUTO) 0.2 K/uL (0.0-0.7); EOSINOPHILS % (AUTO) 3.3 % (0.0-6.0); HEMATOCRIT 40 % (39-51); HEMOGLOBIN 12.9 g/dL (13.5-17.5); LYMPHOCYTES # (AUTO) 1.1 K/uL (0.8-4.8); LYMPHOCYTES % (AUTO) 16.6 % (20.0-44.0); MEAN CORPUSCULAR HEMOGLOBIN 28 PG (26.0-33.0); MEAN CORPUSCULAR HGB CONC 33 g/dl (31.0-36.0); MEAN CORPUSCULAR VOLUME 85 fL (80-96); MONOCYTES # (AUTO) 0.5 K/uL (0.1-1.30); MONOCYTES % (AUTO) 7.3 % (2.0-12.0); NEUTROPHILS # (AUTO) 4.6 K/uL (1.8-8.9); NEUTROPHILS % (AUTO) 72.3 % (43.0-81.0); PLATELET COUNT (AUTO) 249 K/uL (150-450); RED BLOOD CELL COUNT(AUTO) 4.69 MIL/uL (4.5-6.0); RED CELL DISTRIBUTION WIDTH 19.3 % (11.5-15.0); WHITE BLOOD COUNT (AUTO) 6.4 K/uL (4.3-11.0)
[2023-09-08 09:58] LABS: CALCIUM, SERUM 8.4 mg/dL (8.5-10.1); CREATININE 1.3 mg/dL (0.6-1.3); POTASSIUM 3.5 mmol/L (3.5-5.1)
[2023-09-08 12:00] VITALS: BP 103/72; TEMP 97.3; O2SAT 100
[2023-09-08 13:30] LABS: AMPHETAMINE, URINE NEGATIVE (NEGATIVE); BARBITURATE, URINE NEGATIVE (NEGATIVE); BENZODIAZEPINE, URINE NEGATIVE (NEGATIVE); CANNABINOID, URINE NEGATIVE (NEGATIVE); COCCAINE, URINE NEGATIVE (NEGATIVE); OPIATE, URINE NEGATIVE (NEGATIVE); PHENCYCLIDINE SCREEN,URINE NEGATIVE (NEGATIVE)
[2023-09-08 16:10] VITALS: BP 95/59; TEMP 97.2; O2SAT 94
[2023-09-08 20:00] VITALS: BP 108/83; TEMP 97.9; O2SAT 97
[2023-09-08] MEDS: ZOLPIDEM TARTRATE 5 MG TABLET PO PRN (21:26)
[2023-09-09] VITALS (8 sets, daily range): BP systolic 90–115; BP diastolic 65–85; TEMP 97.3–99.1; O2SAT 94–96
[2023-09-09 15:17] LABS: CREATININE 1.5 mg/dL (0.6-1.3); POTASSIUM 3.9 mmol/L (3.5-5.1)
[2023-09-09 17:32] LABS: ALBUMIN 2.7 g/dL (3.4-5.0); BILIRUBIN,DIRECT 0.9 mg/dL (0.0-0.2); BILIRUBIN,TOTAL 1.4 mg/dL (0.2-1.0); CREATININE 1.6 mg/dL (0.6-1.3); POTASSIUM 3.9 mmol/L (3.5-5.1); TOTAL PROTEIN, SERUM 7.7 g/dL (6.4-8.2)
[2023-09-10] VITALS (8 sets, daily range): BP systolic 101–123; BP diastolic 62–87; TEMP 97.5–98.5; O2SAT 93–99
[2023-09-10 08:25] LABS: ALBUMIN 2.5 g/dL (3.4-5.0); BILIRUBIN,DIRECT 0.8 mg/dL (0.0-0.2); BILIRUBIN,TOTAL 1.6 mg/dL (0.2-1.0); CALCIUM, SERUM 8.2 mg/dL (8.5-10.1); CREATININE 1.2 mg/dL (0.6-1.3); POTASSIUM 4.5 mmol/L (3.5-5.1); TOTAL PROTEIN, SERUM 7.4 g/dL (6.4-8.2)
[2023-09-10] MEDS: METOPROLOL TARTRATE 50 MG TABLET PO SCH (21:36)
[2023-09-11] VITALS: BP 108/78; TEMP 97.9; O2SAT 99
[2023-09-11 01:56] VITALS: O2SAT 96
[2023-09-11 04:00] VITALS: BP 104/84; TEMP 98; O2SAT 96
[2023-09-11 06:52] LABS: ALBUMIN 2.9 g/dL (3.4-5.0); BILIRUBIN,DIRECT 0.9 mg/dL (0.0-0.2); BILIRUBIN,TOTAL 1.5 mg/dL (0.2-1.0); CREATININE 1.6 mg/dL (0.6-1.3); POTASSIUM 4.3 mmol/L (3.5-5.1); TOTAL PROTEIN, SERUM 8.2 g/dL (6.4-8.2)
[2023-09-11 07:00] LABS: CALCIUM, SERUM 8.5 mg/dL (8.5-10.1)
[2023-09-11 08:00] VITALS: BP 107/79; TEMP 97.9; O2SAT 94
[2023-09-11] MEDS ORDERED: LEVO500T90 PO (11:46)
[2023-09-11 12:00] VITALS: BP 93/72; TEMP 97.9; O2SAT 91
[2023-09-12] MEDS ORDERED: METO100T14 PO (08:34)
== END 2023-09-11 12:50 | disposition home or self-care (01) | DRG 139 ==
LOC: ER 12:35 → ICU 18:01 → TELE1 09-05 11:16
PROVIDERS: ADMIT Internal Medicine; ATTEND Internal Medicine
DX: J15.9 Unspecified bacterial pneumonia (principal); J96.01 Acute respiratory failure with hypoxia; I21.A1 Myocardial infarction type 2; I50.23 Acute on chronic systolic (congestive) heart failure; N17.9 Acute kidney failure, unspecified; D68.59 Other primary thrombophilia; I42.9 Cardiomyopathy, unspecified; E87.1 Hypo-osmolality and hyponatremia; N18.4 Chronic kidney disease, stage 4 (severe); I13.0 Hypertensive heart and chronic kidney disease with heart failure and stage 1 through stage 4 chronic kidney disease, or unspecified chronic kidney disease; I48.92 Unspecified atrial flutter; I48.91 Unspecified atrial fibrillation; N18.9 Chronic kidney disease, unspecified; E78.5 Hyperlipidemia, unspecified; I25.10 Atherosclerotic heart disease of native coronary artery without angina pectoris; E03.9 Hypothyroidism, unspecified; F41.9 Anxiety disorder, unspecified; F32.A Depression, unspecified; Z59.00 Homelessness unspecified; Z91.199 Patient's noncompliance with other medical treatment and regimen due to unspecified reason; Z79.890 Hormone replacement therapy; Z79.899 Other long term (current) drug therapy; Z79.84 Long term (current) use of oral hypoglycemic drugs; R74.01 Elevation of levels of liver transaminase levels; Z87.891 Personal history of nicotine dependence; D64.9 Anemia, unspecified; Z87.440 Personal history of urinary (tract) infections; I87.8 Other specified disorders of veins; E88.9 Metabolic disorder, unspecified
CPT/HCPCS: 36415; 71045-TC; 76770-TC; 80048-TC; 80053-TC; 80076-TC; 81001; 82550-TC; 82553; 82570-TC; 83735-TC; 83880; 83970; 84100-TC; 84155; 84165; 84300-TC; 84484-TC; 85025-TC; 85378-TC; 87081-TC; 93307-TC; 93970-TC; 94760-TC; 94799-TC; 97112-TC; 97116-TC; 97530-TC; A4223; G0378; J1160; J1650; J1940; J1956; J2543; J3490; J7030; J7050; J7060

== ENCOUNTER 2023-09-11 17:00 | Inpatient (IN) | payer OTHER ==
[~2023-09-11] VITALS: Ht 177.8 cm; Wt 89.4 kg
[~2023-09-11 17:00] MED LIST changes: -CLIN300C12 PO; +DAPA10TA PO; +LEVO500T90 PO; +SPIR25TA PO
[2023-09-11 20:35] LABS: BASOPHILS # (AUTO) 0.1 K/uL (0.0-0.2); BASOPHILS % (AUTO) 0.8 % (0.0-2.0); EOSINOPHILS # (AUTO) 0.2 K/uL (0.0-0.7); EOSINOPHILS % (AUTO) 2.7 % (0.0-6.0); HEMATOCRIT 39 % (39-51); HEMOGLOBIN 12.8 g/dL (13.5-17.5); LYMPHOCYTES # (AUTO) 1.3 K/uL (0.8-4.8); LYMPHOCYTES % (AUTO) 18.7 % (20.0-44.0); MEAN CORPUSCULAR HEMOGLOBIN 27 PG (26.0-33.0); MEAN CORPUSCULAR HGB CONC 33 g/dl (31.0-36.0); MEAN CORPUSCULAR VOLUME 84 fL (80-96); MONOCYTES # (AUTO) 0.7 K/uL (0.1-1.30); MONOCYTES % (AUTO) 9.7 % (2.0-12.0); NEUTROPHILS # (AUTO) 4.7 K/uL (1.8-8.9); NEUTROPHILS % (AUTO) 68.1 % (43.0-81.0); PLATELET COUNT (AUTO) 239 K/uL (150-450); RED BLOOD CELL COUNT(AUTO) 4.69 MIL/uL (4.5-6.0); RED CELL DISTRIBUTION WIDTH 19.6 % (11.5-15.0); WHITE BLOOD COUNT (AUTO) 6.9 K/uL (4.3-11.0)
[2023-09-11 20:53] LABS: CALCIUM, SERUM 8.2 mg/dL (8.5-10.1); CARBON DIOXIDE 33 mmol/L (21-32); CHLORIDE 96 mmol/L (98-107); CREATININE 1.5 mg/dL (0.6-1.3); GLUCOSE 117 mg/dL (74-106); NT-PRO BNP 11408 pg/mL (0-125); POTASSIUM 4.1 mmol/L (3.5-5.1); SODIUM SERUM 133 mmol/L (136-145); UREA NITROGEN, BLOOD 43 mg/dL (7-18)
[2023-09-11 21:21] LABS: INR 1.39 (0.91-1.10); PARTIAL THROMBOPLASTIN TIME 26.8 SEC (24.3-34.3); PROTHROMBIN TIME 14.4 SECS (9.2-11.1)
[2023-09-11 22:23] VITALS: BP 102/78; TEMP 97.7; O2SAT 97
[2023-09-11] MEDS ORDERED: ONDANSETRON HCL/PF 4 MG/2 ML VIAL IVP PRN (23:00)
[2023-09-11] MEDS ORDERED: ACETAMINOPHEN 325 MG TABLET PO PRN (23:00)
[2023-09-12] VITALS: BP 107/79; TEMP 97.7; O2SAT 97
[2023-09-12] MEDS ORDERED: LEVOFLOXACIN 500 MG /D5W 100ML 100 ML IV ONE (00:31)
[2023-09-12] MEDS: FUROSEMIDE 40 MG/4 ML VIAL IV ONE (00:37)
[2023-09-12] MEDS: METOPROLOL TARTRATE 50 MG TABLET PO SCH (00:39)
[2023-09-12] MEDS: LEVOFLOXACIN 500 MG /D5W 100ML 500 MG in PREMIX 1 EA IV SCH (00:41)
[2023-09-12] MEDS: ENOXAPARIN SODIUM 40 MG/0.4 ML DISP.SYRIN SQ SCH (00:41)
[2023-09-12] MEDS ORDERED: RALTEGRAVIR POTASSIUM 400 MG TABLET PO ONE (01:41)
[2023-09-12] MEDS: RALTEGRAVIR POTASSIUM 400 MG TABLET PO SCH (01:46)
[2023-09-12 04:00] VITALS: BP 90/68; TEMP 97.8; O2SAT 97
[2023-09-12 04:18] VITALS: BP 90/50; TEMP 97.8; O2SAT 97
[2023-09-12] MEDS: LEVOTHYROXINE SODIUM 88 MCG TABLET PO SCH (07:53)
[2023-09-12 08:00] VITALS: BP 99/79; TEMP 97.9; O2SAT 97
[2023-09-12 08:05] VITALS: O2SAT 95
[2023-09-12] MEDS ORDERED: METO100T14 PO (08:34)
[2023-09-12] MEDS: DILTIAZEM HCL CD 240 MG PO SCH (09:00)
[2023-09-12] MEDS: FUROSEMIDE 40 MG/4 ML VIAL IV SCH ×2 (09:00→21:21)
[2023-09-12] MEDS: SPIRONOLACTONE 25 MG TABLET PO SCH (09:00)
[2023-09-12] MEDS: EMTRICITABINE/TENOFOVIR 1 TAB PO SCH (09:00)
[2023-09-12] MEDS: Z GUARD REMEDY 4 OZ OINT TP SCH (09:48)
[2023-09-12 16:00] VITALS: BP 108/77; TEMP 97.5; O2SAT 98
[2023-09-13] MEDS: MAGNESIUM HYDROXIDE 30 ML UDC PO PRN (03:59)
[2023-09-13 06:55] LABS: HEMATOCRIT 37 % (39-51); HEMOGLOBIN 12.1 g/dL (13.5-17.5); MEAN CORPUSCULAR VOLUME 84 fL (80-96); WHITE BLOOD COUNT (AUTO) 5.8 K/uL (4.3-11.0)
[2023-09-13 06:56] LABS: BASOPHILS % (AUTO) 0.4 % (0.0-2.0); EOSINOPHILS # (AUTO) 0.2 K/uL (0.0-0.7); EOSINOPHILS % (AUTO) 2.8 % (0.0-6.0); LYMPHOCYTES # (AUTO) 1.2 K/uL (0.8-4.8); LYMPHOCYTES % (AUTO) 20.6 % (20.0-44.0); MEAN CORPUSCULAR HEMOGLOBIN 27 PG (26.0-33.0); MEAN CORPUSCULAR HGB CONC 33 g/dl (31.0-36.0); MONOCYTES # (AUTO) 0.5 K/uL (0.1-1.30); MONOCYTES % (AUTO) 9.2 % (2.0-12.0); NEUTROPHILS # (AUTO) 3.9 K/uL (1.8-8.9); PLATELET COUNT (AUTO) 257 K/uL (150-450)
[2023-09-13 07:12] LABS: CALCIUM, SERUM 8.5 mg/dL (8.5-10.1); CREATININE 1.3 mg/dL (0.6-1.3); POTASSIUM 3.6 mmol/L (3.5-5.1)
[2023-09-13 08:00] VITALS: BP 100/87; TEMP 97.5; O2SAT 99
[2023-09-13] MEDS: Z GUARD REMEDY 4 OZ OINT TP PRN (08:25)
[2023-09-13 08:27] VITALS: BP 110/90
== END 2023-09-13 13:00 | disposition left against medical advice (07) | DRG 194 ==
LOC: ER 17:05 → TELE 21:39
PROVIDERS: ADMIT Nurse Practitioner Acute Care; ATTEND Nurse Practitioner Acute Care
DX: I13.0 Hypertensive heart and chronic kidney disease with heart failure and stage 1 through stage 4 chronic kidney disease, or unspecified chronic kidney disease (principal); J96.01 Acute respiratory failure with hypoxia; I21.A1 Myocardial infarction type 2; N17.9 Acute kidney failure, unspecified; D68.59 Other primary thrombophilia; N18.4 Chronic kidney disease, stage 4 (severe); E87.1 Hypo-osmolality and hyponatremia; I50.23 Acute on chronic systolic (congestive) heart failure; Z59.02 Unsheltered homelessness; E78.5 Hyperlipidemia, unspecified; D64.9 Anemia, unspecified; E03.9 Hypothyroidism, unspecified; R74.01 Elevation of levels of liver transaminase levels; I25.10 Atherosclerotic heart disease of native coronary artery without angina pectoris; Z91.148 Patient's other noncompliance with medication regimen for other reason; Z87.01 Personal history of pneumonia (recurrent); Z87.440 Personal history of urinary (tract) infections; Z79.890 Hormone replacement therapy; Z79.899 Other long term (current) drug therapy; Z79.84 Long term (current) use of oral hypoglycemic drugs; Z91.011 Allergy to milk products; I48.91 Unspecified atrial fibrillation
CPT/HCPCS: 36415; 71045-TC; 80048-TC; 83880; 84484-TC; 85025-TC; 85730-TC; 87081-TC; 94760-TC; 94799-TC; A4216; A4223; G0378; J1650; J1940; J1956; J7050

== ENCOUNTER 2023-09-14 22:07 | Inpatient (IN) | payer OTHER ==
[~2023-09-14] VITALS: Ht 170.2 cm; Wt 88.9 kg
[~2023-09-14 22:07] MED LIST changes: -LEVO500T90 PO; +METO100T14 PO
[2023-09-14] MEDS ORDERED: DILTIAZEM HCL 25 MG IV ONE (23:34)
[2023-09-14] MEDS: DILTIAZEM HCL 50 MG IV IV ONE (23:41)
[2023-09-14 23:54] LABS: INR 1.39 (0.91-1.10); PARTIAL THROMBOPLASTIN TIME 26.2 SEC (24.3-34.3); PROTHROMBIN TIME 14.4 SECS (9.2-11.1)
[2023-09-15 00:04] LABS: CALCIUM, SERUM 8.6 mg/dL (8.5-10.1); CARBON DIOXIDE 30 mmol/L (21-32); CHLORIDE 101 mmol/L (98-107); CREATININE 1.2 mg/dL (0.6-1.3); GLUCOSE 119 mg/dL (74-106); POTASSIUM 4.5 mmol/L (3.5-5.1); SODIUM SERUM 135 mmol/L (136-145); UREA NITROGEN, BLOOD 31 mg/dL (7-18)
[2023-09-15 00:05] LABS: BASOPHILS % (AUTO) 0.8 % (0.0-2.0); EOSINOPHILS # (AUTO) 0.1 K/uL (0.0-0.7); EOSINOPHILS % (AUTO) 1.9 % (0.0-6.0); HEMATOCRIT 38 % (39-51); HEMOGLOBIN 12.3 g/dL (13.5-17.5); LYMPHOCYTES % (AUTO) 17.8 % (20.0-44.0); MEAN CORPUSCULAR HEMOGLOBIN 27 PG (26.0-33.0); MEAN CORPUSCULAR HGB CONC 32 g/dl (31.0-36.0); MEAN CORPUSCULAR VOLUME 84 fL (80-96); MONOCYTES # (AUTO) 0.5 K/uL (0.1-1.30); MONOCYTES % (AUTO) 7.7 % (2.0-12.0); NEUTROPHILS # (AUTO) 4.2 K/uL (1.8-8.9); NEUTROPHILS % (AUTO) 71.8 % (43.0-81.0); PLATELET COUNT (AUTO) 261 K/uL (150-450); RED BLOOD CELL COUNT(AUTO) 4.56 MIL/uL (4.5-6.0); RED CELL DISTRIBUTION WIDTH 19.5 % (11.5-15.0); WHITE BLOOD COUNT (AUTO) 5.9 K/uL (4.3-11.0)
[2023-09-15 00:08] LABS: ALANINE AMINOTRANSFERASE 30 U/L (12-78); ALBUMIN 2.6 g/dL (3.4-5.0); ALKALINE PHOSPHATASE 194 U/L (46-116); ASPARTATE AMINOTRANSFERASE 38 U/L (15-37); BILIRUBIN,DIRECT 0.6 mg/dL (0.0-0.2); BILIRUBIN,TOTAL 1.2 mg/dL (0.2-1.0); NT-PRO BNP 8213 pg/mL (0-125); TOTAL PROTEIN, SERUM 7.5 g/dL (6.4-8.2)
[2023-09-15] MEDS ORDERED: hydrALAZINE HCL IV 20 MG VIAL IV PRN (00:30)
[2023-09-15] MEDS ORDERED: ONDANSETRON HCL/PF 4 MG/2 ML VIAL IVP PRN (00:30)
[2023-09-15] MEDS ORDERED: LABETALOL 20 MG/4 ML VIAL IV PRN (00:30)
[2023-09-15] MEDS ORDERED: MORPHINE SULFATE INJ 2 MG/ML DISP.SYRIN IV PRN (00:30)
[2023-09-15] MEDS ORDERED: DILTIAZEM HCL 50 MG IV ONE (00:39)
[2023-09-15] MEDS ORDERED: DILTIAZEM HCL 25 MG IV ONE (00:39)
[2023-09-15] MEDS: DILTIAZEM HCL IV 125 MG in IV NS 0.9% 100 ML IV PRN (00:50)
[2023-09-15 01:41] LABS: APPEARANCE,URINE CLEAR (CLEAR); BILIRUBIN,URINE NEGATIVE (NEGATIVE); BLOOD, URINE NEGATIVE Ery/uL (NEGATIVE); COLOR,URINE YELLOW (YELLOW); KETONES,URINE TRACE mg/dL (NEGATIVE); LEUKOCYTE ESTERASE ,URINE NEGATIVE (NEGATIVE); NITRITE, URINE NEGATIVE (NEGATIVE); PH,URINE 5.5 (5.0-8.0); PROTEIN,URINE 1+ mg/dl (NEGATIVE); UGLUCOSE TRACE mg/dL (NEGATIVE)
[2023-09-15 02:43] VITALS: BP 114/92; TEMP 97.5; O2SAT 94
[2023-09-15 04:00] VITALS: BP 108/73; TEMP 97.5; O2SAT 95
[2023-09-15] MEDS: ENOXAPARIN SODIUM 80 MG/0.8 ML DISP.SYRIN SQ ONE (04:03)
[2023-09-15 08:00] VITALS: BP 102/77; TEMP 97.3; O2SAT 94
[2023-09-15] MEDS: FUROSEMIDE 40 MG/4 ML VIAL IV SCH (08:56)
[2023-09-15] MEDS: LEVOTHYROXINE SODIUM 88 MCG TABLET PO SCH (08:56)
[2023-09-15] MEDS: DILTIAZEM HCL CD 180 MG PO SCH (08:56)
[2023-09-15] MEDS: SPIRONOLACTONE 25 MG TABLET PO SCH (08:56)
[2023-09-15] MEDS: EMPAGLIFLOZIN 25 MG TABLET PO SCH (09:03)
[2023-09-15] MEDS: DAPAGLIFLOZIN PROPANEDIOL 5 MG TABLET PO SCH (09:04)
[2023-09-15] MEDS: METOPROLOL TARTRATE 50 MG TABLET PO SCH (12:13)
[2023-09-15] MEDS: CEFTRIAXONE 1 G in IV D5W 50 ML IV SCH (14:40)
[2023-09-15] MEDS: VANCOMYCIN 1 GM in IV D5W 250ml IV SCH (15:21)
[2023-09-15 16:00] VITALS: BP 111/82; TEMP 96.7; O2SAT 100
[2023-09-15] MEDS: ENOXAPARIN SODIUM 80 MG/0.8 ML DISP.SYRIN SQ SCH (20:22)
[2023-09-16] VITALS: BP 118/75; TEMP 98.6; O2SAT 99
[2023-09-16] MEDS: ACETAMINOPHEN 325 MG TABLET PO PRN (04:10)
[2023-09-16 07:42] LABS: BASOPHILS # (AUTO) 0.1 K/uL (0.0-0.2); BASOPHILS % (AUTO) 0.8 % (0.0-2.0); EOSINOPHILS # (AUTO) 0.2 K/uL (0.0-0.7); HEMATOCRIT 36 % (39-51); HEMOGLOBIN 11.7 g/dL (13.5-17.5); LYMPHOCYTES # (AUTO) 1.3 K/uL (0.8-4.8); LYMPHOCYTES % (AUTO) 19.2 % (20.0-44.0); MEAN CORPUSCULAR HEMOGLOBIN 27 PG (26.0-33.0); MEAN CORPUSCULAR HGB CONC 32 g/dl (31.0-36.0); MEAN CORPUSCULAR VOLUME 84 fL (80-96); MONOCYTES # (AUTO) 0.5 K/uL (0.1-1.30); MONOCYTES % (AUTO) 6.8 % (2.0-12.0); NEUTROPHILS # (AUTO) 4.8 K/uL (1.8-8.9); NEUTROPHILS % (AUTO) 70.2 % (43.0-81.0); PLATELET COUNT (AUTO) 283 K/uL (150-450); RED BLOOD CELL COUNT(AUTO) 4.32 MIL/uL (4.5-6.0); RED CELL DISTRIBUTION WIDTH 19.5 % (11.5-15.0); WHITE BLOOD COUNT (AUTO) 6.8 K/uL (4.3-11.0)
[2023-09-16 08:00] VITALS: BP 109/85; TEMP 97.8; O2SAT 99
[2023-09-16 08:29] LABS: ALBUMIN 2.6 g/dL (3.4-5.0); CALCIUM, SERUM 8.5 mg/dL (8.5-10.1); CREATININE 1.2 mg/dL (0.6-1.3); MAGNESIUM 2.1 mg/dL (1.8-2.4); PHOSPHORUS 3.2 mg/dL (2.5-4.9); POTASSIUM 4.2 mmol/L (3.5-5.1); TOTAL PROTEIN, SERUM 7.4 g/dL (6.4-8.2)
[2023-09-16 18:58] VITALS: BP 104/70; TEMP 98
[2023-09-17] VITALS: BP 116/86; TEMP 97.9; O2SAT 95
[2023-09-17 07:04] LABS: CALCIUM, SERUM 8.8 mg/dL (8.5-10.1); CREATININE 1.2 mg/dL (0.6-1.3); POTASSIUM 4.1 mmol/L (3.5-5.1)
[2023-09-17 08:00] VITALS: BP 90/70; TEMP 98.2; O2SAT 95
[2023-09-17 10:25] VITALS: BP 115/85
== END 2023-09-17 11:17 | disposition left against medical advice (07) | DRG 720 ==
LOC: ER 22:14 → TELE-TD 09-15 01:22 → MEDSG1 09-15 08:42
PROVIDERS: ADMIT Nurse Practitioner Acute Care; ATTEND Nurse Practitioner Acute Care
DX: A41.9 Sepsis, unspecified organism (principal); J96.01 Acute respiratory failure with hypoxia; I50.23 Acute on chronic systolic (congestive) heart failure; E87.20 Acidosis, unspecified; D68.59 Other primary thrombophilia; N17.9 Acute kidney failure, unspecified; J18.9 Pneumonia, unspecified organism; E87.1 Hypo-osmolality and hyponatremia; E88.09 Other disorders of plasma-protein metabolism, not elsewhere classified; I13.0 Hypertensive heart and chronic kidney disease with heart failure and stage 1 through stage 4 chronic kidney disease, or unspecified chronic kidney disease; I48.92 Unspecified atrial flutter; D64.9 Anemia, unspecified; E03.9 Hypothyroidism, unspecified; E78.5 Hyperlipidemia, unspecified; F32.A Depression, unspecified; F41.9 Anxiety disorder, unspecified; I25.10 Atherosclerotic heart disease of native coronary artery without angina pectoris; I48.91 Unspecified atrial fibrillation; N18.9 Chronic kidney disease, unspecified; E80.6 Other disorders of bilirubin metabolism; Z79.84 Long term (current) use of oral hypoglycemic drugs; Z59.00 Homelessness unspecified; R73.9 Hyperglycemia, unspecified; Z91.199 Patient's noncompliance with other medical treatment and regimen due to unspecified reason; R74.01 Elevation of levels of liver transaminase levels; N50.89 Other specified disorders of the male genital organs
CPT/HCPCS: 36415; 71045-TC; 80048-TC; 80053-TC; 80076-TC; 80202-TC; 83605-TC; 83735-TC; 83880; 84100-TC; 84484-TC; 85025-TC; 85730-TC; 87040-TC; A4223; G0378; J0696; J1650; J1940; J3370; J3490; J7030; J7050; J7060

== ENCOUNTER 2023-09-20 | Inpatient (IN) | payer OTHER ==
[~2023-09-20] VITALS: Ht 170.2 cm; Wt 90.7 kg
[2023-09-20] MEDS ORDERED: DILTIAZEM HCL 50 MG IV ONE (01:06)
[2023-09-20 01:08] LABS: BASOPHILS # (AUTO) 0.1 K/uL (0.0-0.2); BASOPHILS % (AUTO) 1.6 % (0.0-2.0); EOSINOPHILS % (AUTO) 0.6 % (0.0-6.0); HEMATOCRIT 41 % (39-51); LYMPHOCYTES # (AUTO) 0.8 K/uL (0.8-4.8); LYMPHOCYTES % (AUTO) 11.3 % (20.0-44.0); MEAN CORPUSCULAR HEMOGLOBIN 27 PG (26.0-33.0); MEAN CORPUSCULAR HGB CONC 32 g/dl (31.0-36.0); MEAN CORPUSCULAR VOLUME 86 fL (80-96); MONOCYTES # (AUTO) 0.5 K/uL (0.1-1.30); NEUTROPHILS # (AUTO) 5.4 K/uL (1.8-8.9); NEUTROPHILS % (AUTO) 79.5 % (43.0-81.0); PLATELET COUNT (AUTO) 242 K/uL (150-450); RED BLOOD CELL COUNT(AUTO) 4.78 MIL/uL (4.5-6.0); RED CELL DISTRIBUTION WIDTH 20.5 % (11.5-15.0); WHITE BLOOD COUNT (AUTO) 6.8 K/uL (4.3-11.0)
[2023-09-20] MEDS: DILTIAZEM HCL 25 MG IV IV ONE (01:20)
[2023-09-20 01:25] LABS: CALCIUM, SERUM 8.5 mg/dL (8.5-10.1); CARBON DIOXIDE 22 mmol/L (21-32); CHLORIDE 99 mmol/L (98-107); CREATININE 1.7 mg/dL (0.6-1.3); GLUCOSE 118 mg/dL (74-106); SODIUM SERUM 132 mmol/L (136-145); UREA NITROGEN, BLOOD 35 mg/dL (7-18)
[2023-09-20 01:37] LABS: NT-PRO BNP 11582 pg/mL (0-125)
[2023-09-20] MEDS ORDERED: DILTIAZEM HCL IV 125 MG in IV NS 0.9% 100 ML IV PRN (02:00)
[2023-09-20] MEDS ORDERED: CEFTRIAXONE 500 MG VIAL ONE (02:34)
[2023-09-20] MEDS ORDERED: AZITHROMYCIN 250 MG TABLET ONE (02:35)
[2023-09-20] MEDS ORDERED: DILTIAZEM HCL 30 MG TABLET ONE (02:35)
[2023-09-20] MEDS: FUROSEMIDE 40 MG/4 ML VIAL IV ONE ×2 (02:40→03:48)
[2023-09-20] MEDS: AZITHROMYCIN 250 MG TABLET PO ONE (02:41)
[2023-09-20] MEDS: CEFTRIAXONE 500 MG VIAL IM ONE (02:42)
[2023-09-20] MEDS: DILTIAZEM HCL 30 MG TABLET PO ONE (02:43)
[2023-09-20 04:44] LABS: APPEARANCE,URINE CLEAR (CLEAR); BILIRUBIN,URINE NEGATIVE (NEGATIVE); BLOOD, URINE NEGATIVE Ery/uL (NEGATIVE); COLOR,URINE YELLOW (YELLOW); KETONES,URINE NEGATIVE (NEGATIVE); LEUKOCYTE ESTERASE ,URINE NEGATIVE (NEGATIVE); NITRITE, URINE NEGATIVE (NEGATIVE); PH,URINE 6.5 (5.0-8.0); PROTEIN,URINE NEGATIVE (NEGATIVE); UGLUCOSE 1+ mg/dL (NEGATIVE)
[2023-09-20] MEDS ORDERED: Z GUARD REMEDY 4 OZ OINT TP PRN (07:30)
[2023-09-20] MEDS ORDERED: AZITHROMYCIN 500 MG in IV D5W 250 ML IV SCH (07:30)
[2023-09-20] MEDS ORDERED: CEFTRIAXONE 1 G in IV D5W 50 ML IV SCH (07:30)
[2023-09-20] MEDS: PANTOPRAZOLE 40 MG TABLET.DR PO SCH (07:30)
[2023-09-20] MEDS ORDERED: DEXTROSE 50%-WATER 50 ML DISP.SYRIN IV PRN (07:30)
[2023-09-20] MEDS ORDERED: MAG HYDROX/AL HYDROX/SIMETH 30 ML UDC PO PRN (07:30)
[2023-09-20] MEDS: BLOOD SUGAR DIAGNOSTIC 1 EACH STRIP VI SCH (07:30)
[2023-09-20] MEDS ORDERED: INSULIN REGULAR, HUMAN 100 UNIT/ML 3 ML VIAL SQ PRN (07:30)
[2023-09-20] MEDS ORDERED: FUROSEMIDE 40 MG/4 ML VIAL IV SCH (09:00)
[2023-09-20] MEDS ORDERED: EMPAGLIFLOZIN 25 MG TABLET PO SCH (09:00)
[2023-09-20] MEDS: LEVOTHYROXINE SODIUM 88 MCG TABLET PO SCH (09:00)
[2023-09-20] MEDS: SPIRONOLACTONE 25 MG TABLET PO SCH (10:05)
[2023-09-20] MEDS: METOPROLOL TARTRATE 50 MG TABLET PO SCH (10:05)
[2023-09-20] MEDS: DILTIAZEM HCL CD 180 MG PO SCH (10:05)
[2023-09-20] MEDS ORDERED: PANTOPRAZOLE 40 MG TABLET.DR PO ONE (14:42)
[2023-09-20] MEDS ORDERED: LEVOTHYROXINE SODIUM 88 MCG TABLET ONE (14:42)
[2023-09-20 16:00] VITALS: BP 110/85; TEMP 97.6; O2SAT 94
[2023-09-20 17:49] LABS: BARBITURATE, URINE NEGATIVE (NEGATIVE); BENZODIAZEPINE, URINE NEGATIVE (NEGATIVE); CANNABINOID, URINE NEGATIVE (NEGATIVE); COCCAINE, URINE NEGATIVE (NEGATIVE); OPIATE, URINE NEGATIVE (NEGATIVE); PHENCYCLIDINE SCREEN,URINE NEGATIVE (NEGATIVE)
[2023-09-20 17:50] LABS: AMPHETAMINE, URINE POSITIVE (NEGATIVE)
[2023-09-20 20:00] VITALS: BP 98/78; TEMP 98.6; O2SAT 95
[2023-09-20] MEDS: FUROSEMIDE 40 MG/4 ML VIAL IV SCH (21:36)
[2023-09-21] VITALS: BP 143/99; TEMP 98.5; O2SAT 95
[2023-09-21] MEDS: *INSULIN REGULAR(HUMULIN R)HUM 100 UNIT/ML VIAL SQ PRN (00:11)
[2023-09-21] MEDS ORDERED: AZITHROMYCIN 500 MG in IV D5W 250 ML IV SCH (01:00)
[2023-09-21] MEDS ORDERED: CEFTRIAXONE 1 G in IV D5W 50 ML IV SCH (02:00)
[2023-09-21] MEDS: METOPROLOL TARTRATE 50 MG TABLET PO ONE (02:39)
[2023-09-21] MEDS: ZOLPIDEM TARTRATE 5 MG TABLET PO PRN (03:17)
[2023-09-21] MEDS: ACETAMINOPHEN 325 MG TABLET PO PRN (03:18)
[2023-09-21 04:00] VITALS: BP 128/109; TEMP 98; O2SAT 95
[2023-09-21 08:00] VITALS: BP 105/88; TEMP 98.1; O2SAT 100
[2023-09-21] MEDS: FUROSEMIDE 100 MG/10 ML VIAL IV SCH (09:46)
[2023-09-21] MEDS: VENLAFAXINE XR 37.5 MG CAP.SR.24H PO SCH (09:48)
[2023-09-21] MEDS: DAPAGLIFLOZIN PROPANEDIOL 5 MG TABLET PO SCH (09:51)
[2023-09-21 12:00] VITALS: BP 133/90; TEMP 97.7; O2SAT 99
[2023-09-21 16:00] VITALS: BP 132/90; TEMP 97.8; O2SAT 99
[2023-09-21 20:00] VITALS: BP 105/73; TEMP 98.8; O2SAT 94
[2023-09-22] VITALS (8 sets, daily range): BP systolic 104–119; BP diastolic 59–83; TEMP 97.5–98.6; O2SAT 92–97
[2023-09-22 08:14] LABS: BASOPHILS % (AUTO) 0.7 % (0.0-2.0); EOSINOPHILS # (AUTO) 0.2 K/uL (0.0-0.7); EOSINOPHILS % (AUTO) 5.2 % (0.0-6.0); HEMATOCRIT 35 % (39-51); HEMOGLOBIN 11.6 g/dL (13.5-17.5); LYMPHOCYTES # (AUTO) 1.1 K/uL (0.8-4.8); LYMPHOCYTES % (AUTO) 22.8 % (20.0-44.0); MEAN CORPUSCULAR HEMOGLOBIN 28 PG (26.0-33.0); MEAN CORPUSCULAR HGB CONC 33 g/dl (31.0-36.0); MEAN CORPUSCULAR VOLUME 85 fL (80-96); MONOCYTES # (AUTO) 0.4 K/uL (0.1-1.30); MONOCYTES % (AUTO) 8.5 % (2.0-12.0); NEUTROPHILS # (AUTO) 2.9 K/uL (1.8-8.9); NEUTROPHILS % (AUTO) 62.8 % (43.0-81.0); PLATELET COUNT (AUTO) 227 K/uL (150-450); RED BLOOD CELL COUNT(AUTO) 4.15 MIL/uL (4.5-6.0); RED CELL DISTRIBUTION WIDTH 19.7 % (11.5-15.0); WHITE BLOOD COUNT (AUTO) 4.6 K/uL (4.3-11.0)
[2023-09-22] MEDS: LEVOTHYROXINE SODIUM 88 MCG TABLET PO SCH (08:29)
[2023-09-22 08:38] LABS: ALBUMIN 2.4 g/dL (3.4-5.0); BILIRUBIN,TOTAL 1.3 mg/dL (0.2-1.0); CALCIUM, SERUM 7.7 mg/dL (8.5-10.1); CREATININE 1.2 mg/dL (0.6-1.3); MAGNESIUM 1.6 mg/dL (1.8-2.4); PHOSPHORUS 3.3 mg/dL (2.5-4.9); POTASSIUM 3.1 mmol/L (3.5-5.1); TOTAL PROTEIN, SERUM 6.6 g/dL (6.4-8.2)
[2023-09-22] MEDS: POTASSIUM CHLORIDE 20 MEQ TAB.PRT.SR PO SCH (11:20)
[2023-09-22] MEDS: MAGNESIUM OXIDE 400 MG TABLET PO ONE (11:20)
[2023-09-23] VITALS: BP 109/74; TEMP 98.1; O2SAT 94
[2023-09-23 04:00] VITALS: BP 112/89; TEMP 98; O2SAT 100
[2023-09-23 08:00] VITALS: BP 132/63; TEMP 97.9; O2SAT 90
[2023-09-23] MEDS: FUROSEMIDE 100 MG/10 ML VIAL IV SCH (09:48)
[2023-09-23] MEDS: POTASSIUM CHLORIDE 20 MEQ TAB.PRT.SR PO SCH (09:48)
[2023-09-23 12:00] VITALS: BP 95/72; TEMP 97.5; O2SAT 90
[2023-09-23] MEDS: MAGNESIUM HYDROXIDE 30 ML UDC PO PRN (14:08)
[2023-09-23] MEDS: ONDANSETRON HCL/PF 4 MG/2 ML VIAL IVP PRN (15:47)
[2023-09-23 16:00] VITALS: BP 128/100; TEMP 97.8; O2SAT 90
[2023-09-23 20:00] VITALS: BP 98/78; TEMP 97.2; O2SAT 94
[2023-09-24] VITALS: BP 97/68; TEMP 97.4; O2SAT 93
[2023-09-24 04:00] VITALS: BP 96/59; TEMP 97.8; O2SAT 94
[2023-09-24 04:42] VITALS: O2SAT 94
[2023-09-24 06:57] LABS: BASOPHILS % (AUTO) 0.4 % (0.0-2.0); EOSINOPHILS # (AUTO) 0.1 K/uL (0.0-0.7); EOSINOPHILS % (AUTO) 1.9 % (0.0-6.0); HEMATOCRIT 39 % (39-51); HEMOGLOBIN 12.6 g/dL (13.5-17.5); LYMPHOCYTES # (AUTO) 1.4 K/uL (0.8-4.8); LYMPHOCYTES % (AUTO) 26.7 % (20.0-44.0); MEAN CORPUSCULAR HEMOGLOBIN 27 PG (26.0-33.0); MEAN CORPUSCULAR HGB CONC 32 g/dl (31.0-36.0); MEAN CORPUSCULAR VOLUME 85 fL (80-96); MONOCYTES # (AUTO) 0.7 K/uL (0.1-1.30); MONOCYTES % (AUTO) 13.6 % (2.0-12.0); NEUTROPHILS % (AUTO) 57.4 % (43.0-81.0); PLATELET COUNT (AUTO) 257 K/uL (150-450); RED BLOOD CELL COUNT(AUTO) 4.62 MIL/uL (4.5-6.0); RED CELL DISTRIBUTION WIDTH 20.1 % (11.5-15.0); WHITE BLOOD COUNT (AUTO) 5.2 K/uL (4.3-11.0)
[2023-09-24 07:34] LABS: ALBUMIN 2.8 g/dL (3.4-5.0); BILIRUBIN,TOTAL 1.4 mg/dL (0.2-1.0); CALCIUM, SERUM 8.9 mg/dL (8.5-10.1); CREATININE 1.5 mg/dL (0.6-1.3); MAGNESIUM 2.3 mg/dL (1.8-2.4); PHOSPHORUS 3.8 mg/dL (2.5-4.9); POTASSIUM 4.4 mmol/L (3.5-5.1); TOTAL PROTEIN, SERUM 7.5 g/dL (6.4-8.2)
[2023-09-24 08:00] VITALS: BP 94/74; TEMP 97.8; O2SAT 95
[2023-09-24 08:15] VITALS: O2SAT 95
[2023-09-24 12:00] VITALS: BP 92/74; TEMP 97.1; O2SAT 100
== END 2023-09-24 16:49 | disposition home or self-care (01) | DRG 201 ==
LOC: ER 00:02 → TELE-TD 12:34 → TELE1 16:33 → MEDSG1 09-24 09:58
PROVIDERS: ADMIT Nurse Practitioner Family; ATTEND Nurse Practitioner Family
DX: I48.91 Unspecified atrial fibrillation (principal); I50.23 Acute on chronic systolic (congestive) heart failure; N17.9 Acute kidney failure, unspecified; E87.1 Hypo-osmolality and hyponatremia; F33.1 Major depressive disorder, recurrent, moderate; I13.0 Hypertensive heart and chronic kidney disease with heart failure and stage 1 through stage 4 chronic kidney disease, or unspecified chronic kidney disease; N18.9 Chronic kidney disease, unspecified; E78.5 Hyperlipidemia, unspecified; I25.10 Atherosclerotic heart disease of native coronary artery without angina pectoris; Z59.00 Homelessness unspecified; I48.92 Unspecified atrial flutter; F41.9 Anxiety disorder, unspecified; Z98.890 Other specified postprocedural states; D64.9 Anemia, unspecified; E03.9 Hypothyroidism, unspecified; Z91.011 Allergy to milk products; Z79.890 Hormone replacement therapy; Z79.899 Other long term (current) drug therapy; Z79.84 Long term (current) use of oral hypoglycemic drugs; I86.1 Scrotal varices; Z91.148 Patient's other noncompliance with medication regimen for other reason; Z53.29 Procedure and treatment not carried out because of patient's decision for other reasons; N48.89 Other specified disorders of penis
CPT/HCPCS: 36415; 71045-TC; 76870-TC; 80048-TC; 80053-TC; 82962-TC; 83735-TC; 83880; 84100-TC; 84484-TC; 85025-TC; 87081-TC; 94760-TC; 94799-TC; G0378; J0456; J0696; J1815; J1940; J2405; J3490; J7060

== ENCOUNTER 2023-09-26 19:15 | Inpatient (IN) | payer OTHER ==
[~2023-09-26] VITALS: Ht 177.8 cm; Wt 81.6 kg
[2023-09-26] MEDS: DILTIAZEM HCL 25 MG IV IV ONE ×2 (19:25→19:36)
[2023-09-26] MEDS ORDERED: DILTIAZEM HCL 25 MG IV ONE ×2 (19:25→19:32)
[2023-09-26] MEDS ORDERED: FUROSEMIDE 40 MG/4 ML VIAL ONE (19:26)
[2023-09-26 19:43] LABS: BASOPHILS % (AUTO) 0.9 % (0.0-2.0); EOSINOPHILS # (AUTO) 0.1 K/uL (0.0-0.7); EOSINOPHILS % (AUTO) 1.7 % (0.0-6.0); HEMATOCRIT 43 % (39-51); HEMOGLOBIN 13.8 g/dL (13.5-17.5); LYMPHOCYTES # (AUTO) 1.6 K/uL (0.8-4.8); LYMPHOCYTES % (AUTO) 31.1 % (20.0-44.0); MEAN CORPUSCULAR HEMOGLOBIN 27 PG (26.0-33.0); MEAN CORPUSCULAR HGB CONC 32 g/dl (31.0-36.0); MEAN CORPUSCULAR VOLUME 83 fL (80-96); MONOCYTES # (AUTO) 0.6 K/uL (0.1-1.30); MONOCYTES % (AUTO) 11.1 % (2.0-12.0); NEUTROPHILS # (AUTO) 2.8 K/uL (1.8-8.9); NEUTROPHILS % (AUTO) 55.2 % (43.0-81.0); PLATELET COUNT (AUTO) 272 K/uL (150-450); RED BLOOD CELL COUNT(AUTO) 5.12 MIL/uL (4.5-6.0); RED CELL DISTRIBUTION WIDTH 20.2 % (11.5-15.0); WHITE BLOOD COUNT (AUTO) 5.1 K/uL (4.3-11.0)
[2023-09-26 19:51] LABS: CALCIUM, SERUM 8.8 mg/dL (8.5-10.1); CARBON DIOXIDE 29 mmol/L (21-32); CHLORIDE 100 mmol/L (98-107); CREATININE 1.6 mg/dL (0.6-1.3); GLUCOSE 122 mg/dL (74-106); POTASSIUM 5.2 mmol/L (3.5-5.1); SODIUM SERUM 134 mmol/L (136-145); UREA NITROGEN, BLOOD 37 mg/dL (7-18)
[2023-09-26] MEDS: FUROSEMIDE 40 MG/4 ML VIAL IV ONE (19:53)
[2023-09-26 19:58] LABS: INR 1.72 (0.91-1.10); PARTIAL THROMBOPLASTIN TIME 25.4 SEC (24.3-34.3); PROTHROMBIN TIME 17.3 SECS (9.2-11.1)
[2023-09-26 20:03] LABS: ALANINE AMINOTRANSFERASE 18 U/L (12-78); ALBUMIN 3.1 g/dL (3.4-5.0); ALKALINE PHOSPHATASE 120 U/L (46-116); ASPARTATE AMINOTRANSFERASE 20 U/L (15-37); BILIRUBIN,DIRECT 0.9 mg/dL (0.0-0.2); BILIRUBIN,TOTAL 1.8 mg/dL (0.2-1.0); NT-PRO BNP 12143 pg/mL (0-125)
[2023-09-26 21:40] VITALS: BP 115/92; TEMP 97.4; O2SAT 95
[2023-09-26 21:45] VITALS: BP 115/92; TEMP 97.4; O2SAT 95
[2023-09-26] MEDS ORDERED: DEXTROSE 50%-WATER 50 ML DISP.SYRIN IV PRN (23:30)
[2023-09-26] MEDS ORDERED: Z GUARD REMEDY 4 OZ OINT TP PRN (23:30)
[2023-09-26] MEDS ORDERED: ONDANSETRON HCL/PF 4 MG/2 ML VIAL IVP PRN (23:30)
[2023-09-26 23:32] VITALS: O2SAT 96
[2023-09-26] MEDS: METOPROLOL TARTRATE 50 MG TABLET PO SCH (23:50)
[2023-09-27 00:18] VITALS: BP 112/83; TEMP 97.4; O2SAT 95
[2023-09-27] MEDS: VANCOMYCIN 1.5 GM in IV D5W 500 ML IV ONE (00:36)
[2023-09-27] MEDS: VANCOMYCIN 1 GM /D5W 250 ML PB IV ONE (00:36)
[2023-09-27 04:56] VITALS: BP 110/82; TEMP 97.5; O2SAT 94
[2023-09-27] MEDS: FUROSEMIDE 40 MG/4 ML VIAL IV SCH (05:09)
[2023-09-27] MEDS: INSULIN REGULAR, HUMAN 100 UNIT/ML 3 ML VIAL SQ PRN (06:39)
[2023-09-27] MEDS: BLOOD SUGAR DIAGNOSTIC 1 EACH STRIP IN SCH (06:39)
[2023-09-27 06:53] LABS: BASOPHILS % (AUTO) 0.7 % (0.0-2.0); EOSINOPHILS # (AUTO) 0.1 K/uL (0.0-0.7); EOSINOPHILS % (AUTO) 2.5 % (0.0-6.0); HEMATOCRIT 41 % (39-51); HEMOGLOBIN 13.4 g/dL (13.5-17.5); LYMPHOCYTES # (AUTO) 1.4 K/uL (0.8-4.8); MEAN CORPUSCULAR HEMOGLOBIN 28 PG (26.0-33.0); MEAN CORPUSCULAR HGB CONC 32 g/dl (31.0-36.0); MEAN CORPUSCULAR VOLUME 85 fL (80-96); MONOCYTES # (AUTO) 0.6 K/uL (0.1-1.30); MONOCYTES % (AUTO) 12.8 % (2.0-12.0); NEUTROPHILS # (AUTO) 2.8 K/uL (1.8-8.9); PLATELET COUNT (AUTO) 259 K/uL (150-450); RED BLOOD CELL COUNT(AUTO) 4.86 MIL/uL (4.5-6.0); WHITE BLOOD COUNT (AUTO) 4.9 K/uL (4.3-11.0)
[2023-09-27 07:11] LABS: CALCIUM, SERUM 8.8 mg/dL (8.5-10.1); CREATININE 1.4 mg/dL (0.6-1.3); MAGNESIUM 2.4 mg/dL (1.8-2.4); PHOSPHORUS 4.2 mg/dL (2.5-4.9); POTASSIUM 4.3 mmol/L (3.5-5.1)
[2023-09-27] MEDS: LEVOTHYROXINE SODIUM 88 MCG TABLET PO SCH (07:55)
[2023-09-27] MEDS: PANTOPRAZOLE 40 MG TABLET.DR PO SCH (07:55)
[2023-09-27 08:00] VITALS: BP 100/79; TEMP 97.5; O2SAT 88
[2023-09-27 08:04] LABS: THYROID STIMULATING HORMONE 20.692 uIU/mL (0.358-3.74)
[2023-09-27] MEDS: ASPIRIN EC 81 MG TABLET.DR PO SCH (08:25)
[2023-09-27] MEDS: VENLAFAXINE XR 37.5 MG CAP.SR.24H PO SCH (08:26)
[2023-09-27] MEDS: SPIRONOLACTONE 25 MG TABLET PO SCH (08:26)
[2023-09-27] MEDS: HEPARIN SODIUM, PORCINE 5000 UNITS/1 ML VIAL SQ SCH (08:34)
[2023-09-27] MEDS ORDERED: DILTIAZEM HCL CD 180 MG PO SCH (09:00)
[2023-09-27] MEDS ORDERED: LEVOTHYROXINE SODIUM 88 MCG TABLET PO SCH (09:00)
[2023-09-27] MEDS: DILTIAZEM HCL CD 180 MG PO SCH (09:46)
[2023-09-27 12:00] VITALS: BP 100/85; TEMP 97.5; O2SAT 89
[2023-09-27] MEDS: VANCOMYCIN 750 MG in IV D5W 250 ML IV SCH (12:16)
[2023-09-27 16:00] VITALS: BP 97/78; TEMP 97.9; O2SAT 93
[2023-09-27 20:00] VITALS: BP_SYST 104; BP_SYST 114; BP_DIAS 80; BP_DIAS 95; TEMP 97.6; O2SAT 92
[2023-09-28] VITALS (7 sets, daily range): BP systolic 78–108; BP diastolic 56–82; TEMP 97.5–97.9; O2SAT 92–95
[2023-09-28 07:37] LABS: CALCIUM, SERUM 8.5 mg/dL (8.5-10.1); CREATININE 1.4 mg/dL (0.6-1.3); POTASSIUM 4.1 mmol/L (3.5-5.1)
[2023-09-28] MEDS: DILTIAZEM HCL CD 180 MG PO SCH (08:39)
[2023-09-28] MEDS: ACETAMINOPHEN 325 MG TABLET PO PRN (20:40)
[2023-09-29] VITALS (8 sets, daily range): BP systolic 93–106; BP diastolic 64–76; TEMP 96.9–98.9; O2SAT 90–95
[2023-09-29 06:46] LABS: BASOPHILS % (AUTO) 0.6 % (0.0-2.0); EOSINOPHILS # (AUTO) 0.1 K/uL (0.0-0.7); EOSINOPHILS % (AUTO) 2.6 % (0.0-6.0); HEMATOCRIT 42 % (39-51); HEMOGLOBIN 13.3 g/dL (13.5-17.5); LYMPHOCYTES # (AUTO) 1.4 K/uL (0.8-4.8); LYMPHOCYTES % (AUTO) 29.8 % (20.0-44.0); MEAN CORPUSCULAR HEMOGLOBIN 27 PG (26.0-33.0); MEAN CORPUSCULAR HGB CONC 31 g/dl (31.0-36.0); MEAN CORPUSCULAR VOLUME 87 fL (80-96); MONOCYTES # (AUTO) 0.6 K/uL (0.1-1.30); MONOCYTES % (AUTO) 12.7 % (2.0-12.0); NEUTROPHILS # (AUTO) 2.5 K/uL (1.8-8.9); NEUTROPHILS % (AUTO) 54.3 % (43.0-81.0); PLATELET COUNT (AUTO) 283 K/uL (150-450); RED CELL DISTRIBUTION WIDTH 20.2 % (11.5-15.0); WHITE BLOOD COUNT (AUTO) 4.5 K/uL (4.3-11.0)
[2023-09-29 06:56] LABS: CALCIUM, SERUM 8.6 mg/dL (8.5-10.1); CREATININE 1.8 mg/dL (0.6-1.3); POTASSIUM 4.2 mmol/L (3.5-5.1)
[2023-09-29] MEDS ORDERED: VANCOMYCIN 1 GM in IV D5W 250 ML IV SCH (13:00)
[2023-09-29] MEDS: SULFAMETH/TRIMETH 800/160 MG 1 UDTAB TABLET PO SCH (20:23)
[2023-09-29] MEDS: TAMSULOSIN 0.4 MG CAP.SR.24H PO SCH (22:45)
[2023-09-30] VITALS (11 sets, daily range): BP systolic 94–116; BP diastolic 76–91; TEMP 97.1–97.8; O2SAT 64–100
[2023-09-30 07:17] LABS: BASOPHILS % (AUTO) 0.7 % (0.0-2.0); EOSINOPHILS # (AUTO) 0.1 K/uL (0.0-0.7); EOSINOPHILS % (AUTO) 3.2 % (0.0-6.0); HEMATOCRIT 36 % (39-51); HEMOGLOBIN 11.7 g/dL (13.5-17.5); LYMPHOCYTES # (AUTO) 1.1 K/uL (0.8-4.8); MEAN CORPUSCULAR HEMOGLOBIN 28 PG (26.0-33.0); MEAN CORPUSCULAR HGB CONC 33 g/dl (31.0-36.0); MEAN CORPUSCULAR VOLUME 84 fL (80-96); MONOCYTES # (AUTO) 0.4 K/uL (0.1-1.30); MONOCYTES % (AUTO) 10.7 % (2.0-12.0); NEUTROPHILS # (AUTO) 2.4 K/uL (1.8-8.9); NEUTROPHILS % (AUTO) 58.4 % (43.0-81.0); PLATELET COUNT (AUTO) 247 K/uL (150-450); RED BLOOD CELL COUNT(AUTO) 4.22 MIL/uL (4.5-6.0); RED CELL DISTRIBUTION WIDTH 19.5 % (11.5-15.0); WHITE BLOOD COUNT (AUTO) 4.2 K/uL (4.3-11.0)
[2023-09-30 07:43] LABS: CALCIUM, SERUM 7.8 mg/dL (8.5-10.1); CREATININE 1.9 mg/dL (0.6-1.3); POTASSIUM 3.6 mmol/L (3.5-5.1)
[2023-09-30] MEDS: DILTIAZEM HCL 30 MG TABLET PO SCH (18:57)
[2023-10-01] VITALS (9 sets, daily range): BP systolic 92–140; BP diastolic 70–100; TEMP 96.9–98.1; O2SAT 92–97
[2023-10-01 07:04] LABS: BASOPHILS % (AUTO) 0.5 % (0.0-2.0); EOSINOPHILS # (AUTO) 0.2 K/uL (0.0-0.7); EOSINOPHILS % (AUTO) 4.5 % (0.0-6.0); HEMATOCRIT 38 % (39-51); HEMOGLOBIN 12.5 g/dL (13.5-17.5); LYMPHOCYTES # (AUTO) 0.9 K/uL (0.8-4.8); LYMPHOCYTES % (AUTO) 21.4 % (20.0-44.0); MEAN CORPUSCULAR HEMOGLOBIN 27 PG (26.0-33.0); MEAN CORPUSCULAR HGB CONC 33 g/dl (31.0-36.0); MEAN CORPUSCULAR VOLUME 84 fL (80-96); MONOCYTES # (AUTO) 0.4 K/uL (0.1-1.30); MONOCYTES % (AUTO) 10.2 % (2.0-12.0); NEUTROPHILS # (AUTO) 2.6 K/uL (1.8-8.9); NEUTROPHILS % (AUTO) 63.4 % (43.0-81.0); PLATELET COUNT (AUTO) 250 K/uL (150-450); RED BLOOD CELL COUNT(AUTO) 4.56 MIL/uL (4.5-6.0); RED CELL DISTRIBUTION WIDTH 19.7 % (11.5-15.0); WHITE BLOOD COUNT (AUTO) 4.1 K/uL (4.3-11.0)
[2023-10-01 07:25] LABS: ALBUMIN 2.8 g/dL (3.4-5.0); BILIRUBIN,TOTAL 1.3 mg/dL (0.2-1.0); CALCIUM, SERUM 8.8 mg/dL (8.5-10.1); CREATININE 2.3 mg/dL (0.6-1.3); PHOSPHORUS 4.9 mg/dL (2.5-4.9); POTASSIUM 4.2 mmol/L (3.5-5.1); TOTAL PROTEIN, SERUM 7.4 g/dL (6.4-8.2)
[2023-10-01 07:36] LABS: APPEARANCE,URINE CLEAR (CLEAR); BILIRUBIN,URINE NEGATIVE (NEGATIVE); BLOOD, URINE TRACE-INTA Ery/uL (NEGATIVE); COLOR,URINE YELLOW (YELLOW); KETONES,URINE NEGATIVE (NEGATIVE); LEUKOCYTE ESTERASE ,URINE NEGATIVE (NEGATIVE); NITRITE, URINE NEGATIVE (NEGATIVE); PH,URINE 5.5 (5.0-8.0); PROTEIN,URINE NEGATIVE (NEGATIVE); UGLUCOSE NEGATIVE (NEGATIVE)
[2023-10-01 08:12] LABS: URINE TOTAL PROTEIN 22.4 mg/dL (0-11.9)
[2023-10-01 08:20] LABS: ADD URINE CULTURE NO; BACTERIA,URINE None seen /HPF (None Seen); WBC,URINE NONE SEEN /HPF (0-3)
[2023-10-01 09:15] LABS: EOSINOPHIL,URINE None Seen
[2023-10-02] VITALS (27 sets, daily range): BP systolic 95–137; BP diastolic 74–95; TEMP 97.3–98.9; O2SAT 88–100
[2023-10-02 07:12] LABS: INR 1.44 (0.91-1.10); PARTIAL THROMBOPLASTIN TIME 29.1 SEC (24.3-34.3); PROTHROMBIN TIME 14.9 SECS (9.2-11.1)
[2023-10-02 07:25] LABS: BASOPHILS % (AUTO) 0.5 % (0.0-2.0); EOSINOPHILS # (AUTO) 0.2 K/uL (0.0-0.7); EOSINOPHILS % (AUTO) 5.5 % (0.0-6.0); HEMATOCRIT 39 % (39-51); HEMOGLOBIN 12.7 g/dL (13.5-17.5); LYMPHOCYTES # (AUTO) 0.9 K/uL (0.8-4.8); LYMPHOCYTES % (AUTO) 20.1 % (20.0-44.0); MEAN CORPUSCULAR HEMOGLOBIN 27 PG (26.0-33.0); MEAN CORPUSCULAR HGB CONC 32 g/dl (31.0-36.0); MEAN CORPUSCULAR VOLUME 84 fL (80-96); MONOCYTES # (AUTO) 0.3 K/uL (0.1-1.30); MONOCYTES % (AUTO) 7.9 % (2.0-12.0); NEUTROPHILS # (AUTO) 2.9 K/uL (1.8-8.9); PLATELET COUNT (AUTO) 250 K/uL (150-450); RED BLOOD CELL COUNT(AUTO) 4.71 MIL/uL (4.5-6.0); RED CELL DISTRIBUTION WIDTH 19.2 % (11.5-15.0); WHITE BLOOD COUNT (AUTO) 4.4 K/uL (4.3-11.0)
[2023-10-02 07:28] LABS: CALCIUM, SERUM 8.3 mg/dL (8.5-10.1); CREATININE 1.7 mg/dL (0.6-1.3); POTASSIUM 4.2 mmol/L (3.5-5.1)
[2023-10-02] MEDS: MILRINONE LACTATE 20 MG in IV D5W 100 ML IV PRN (15:00)
[2023-10-02 16:07] LABS: *SPE A/G RATIO 0.7 (0.7-1.7); *SPE ALPHA-1-GLOBULIN 0.3 g/dL (0.0-0.4); *SPE ALPHA-2-GLOBULIN 0.6 g/dL (0.4-1.0); *SPE BETA GLOBULIN 1.1 g/dL (0.7-1.3); *SPE GLOBULIN, TOTAL 4.1 g/dL (2.2-3.9); *SPE M-SPIKE Not Observed g/dL (Not Observed); *SPE PROTEIN TOTAL 7.1 g/dL (6.0-8.5); *SPEGAMMA GLOBULIN 2.1 g/dL (0.4-1.8)
[2023-10-02] MEDS: AMIODARONE 150 MG in IV D5W 100 ML IV ONE (18:50)
[2023-10-02] MEDS: AMIODARONE 450 MG in IV D5W 241 ML IV PRN (19:08)
[2023-10-02] MEDS: MAGNESIUM HYDROXIDE 30 ML UDC PO PRN (23:57)
[2023-10-03] VITALS (29 sets, daily range): BP systolic 94–114; BP diastolic 49–93; TEMP 97.3–97.8; O2SAT 89–100
[2023-10-03 01:09] LABS: PTH, INTACT 30 pg/mL (15-65)
[2023-10-03 04:35] LABS: BASOPHILS # (AUTO) 0.1 K/uL (0.0-0.2); EOSINOPHILS # (AUTO) 0.1 K/uL (0.0-0.7); HEMATOCRIT 40 % (39-51); HEMOGLOBIN 12.9 g/dL (13.5-17.5); LYMPHOCYTES # (AUTO) 0.8 K/uL (0.8-4.8); LYMPHOCYTES % (AUTO) 15.1 % (20.0-44.0); MEAN CORPUSCULAR HEMOGLOBIN 27 PG (26.0-33.0); MEAN CORPUSCULAR HGB CONC 32 g/dl (31.0-36.0); MEAN CORPUSCULAR VOLUME 83 fL (80-96); MONOCYTES # (AUTO) 0.3 K/uL (0.1-1.30); MONOCYTES % (AUTO) 6.4 % (2.0-12.0); NEUTROPHILS % (AUTO) 75.5 % (43.0-81.0); PLATELET COUNT (AUTO) 242 K/uL (150-450); RED BLOOD CELL COUNT(AUTO) 4.85 MIL/uL (4.5-6.0); RED CELL DISTRIBUTION WIDTH 19.3 % (11.5-15.0); WHITE BLOOD COUNT (AUTO) 5.3 K/uL (4.3-11.0)
[2023-10-03 04:57] LABS: CALCIUM, SERUM 8.3 mg/dL (8.5-10.1); CREATININE 1.7 mg/dL (0.6-1.3); PHOSPHORUS 3.4 mg/dL (2.5-4.9)
[2023-10-03] MEDS: BUMETANIDE INJ 6 MG in IV NS 0.9% 36 ML IV ONE (10:38)
[2023-10-03] MEDS: DOPamine 400 MG in IV D5W 250 ML IV PRN (10:45)
[2023-10-04] VITALS (20 sets, daily range): BP systolic 89–118; BP diastolic 62–88; TEMP 97.5–98.5; O2SAT 87–98
[2023-10-04 04:57] LABS: EOSINOPHILS % (AUTO) 0.9 % (0.0-6.0); HEMATOCRIT 42 % (39-51); HEMOGLOBIN 13.5 g/dL (13.5-17.5); LYMPHOCYTES # (AUTO) 0.7 K/uL (0.8-4.8); LYMPHOCYTES % (AUTO) 14.7 % (20.0-44.0); MEAN CORPUSCULAR HEMOGLOBIN 27 PG (26.0-33.0); MEAN CORPUSCULAR HGB CONC 32 g/dl (31.0-36.0); MEAN CORPUSCULAR VOLUME 83 fL (80-96); MONOCYTES # (AUTO) 0.5 K/uL (0.1-1.30); MONOCYTES % (AUTO) 11.3 % (2.0-12.0); NEUTROPHILS # (AUTO) 3.4 K/uL (1.8-8.9); NEUTROPHILS % (AUTO) 73.1 % (43.0-81.0); PLATELET COUNT (AUTO) 229 K/uL (150-450); RED BLOOD CELL COUNT(AUTO) 5.02 MIL/uL (4.5-6.0); RED CELL DISTRIBUTION WIDTH 19.6 % (11.5-15.0); WHITE BLOOD COUNT (AUTO) 4.6 K/uL (4.3-11.0)
[2023-10-04 05:13] LABS: CALCIUM, SERUM 8.7 mg/dL (8.5-10.1); CREATININE 1.9 mg/dL (0.6-1.3); MAGNESIUM 2.2 mg/dL (1.8-2.4); PHOSPHORUS 4.2 mg/dL (2.5-4.9)
[2023-10-04] MEDS: BUMETANIDE INJ 8 MG in IV NS 0.9% 48 ML IV ONE (11:54)
[2023-10-05] VITALS (10 sets, daily range): BP systolic 92–102; BP diastolic 67–77; TEMP 97.2–97.7; O2SAT 90–97
[2023-10-05 07:10] LABS: BASOPHILS % (AUTO) 0.5 % (0.0-2.0); EOSINOPHILS # (AUTO) 0.2 K/uL (0.0-0.7); EOSINOPHILS % (AUTO) 4.3 % (0.0-6.0); HEMATOCRIT 40 % (39-51); HEMOGLOBIN 13.3 g/dL (13.5-17.5); LYMPHOCYTES # (AUTO) 0.7 K/uL (0.8-4.8); LYMPHOCYTES % (AUTO) 14.2 % (20.0-44.0); MEAN CORPUSCULAR HEMOGLOBIN 27 PG (26.0-33.0); MEAN CORPUSCULAR HGB CONC 33 g/dl (31.0-36.0); MEAN CORPUSCULAR VOLUME 83 fL (80-96); MONOCYTES # (AUTO) 0.4 K/uL (0.1-1.30); MONOCYTES % (AUTO) 7.7 % (2.0-12.0); NEUTROPHILS # (AUTO) 3.5 K/uL (1.8-8.9); NEUTROPHILS % (AUTO) 73.3 % (43.0-81.0); PLATELET COUNT (AUTO) 204 K/uL (150-450); RED CELL DISTRIBUTION WIDTH 19.4 % (11.5-15.0); WHITE BLOOD COUNT (AUTO) 4.8 K/uL (4.3-11.0)
[2023-10-05 07:51] LABS: CALCIUM, SERUM 8.7 mg/dL (8.5-10.1); CREATININE 1.7 mg/dL (0.6-1.3); MAGNESIUM 2.1 mg/dL (1.8-2.4); PHOSPHORUS 3.5 mg/dL (2.5-4.9)
[2023-10-05] MEDS: BUMETANIDE INJ 6 MG in IV NS 0.9% 36 ML IV ONE (09:41)
[2023-10-05 16:17] LABS: PROTEIN, BODY FLUID 3.5 G/DL
[2023-10-05 18:50] LABS: APPEARANCE,SPUN,BODY FLUID CLEAR (CLEAR); TOTAL VOLUME,BODY FLUID 1000 mL
[2023-10-05 21:22] LABS: MACROPHAGES, BODY FLUID 5; POLYNUCLEAR, BODY FLUID 8 % (0-25)
[2023-10-06] VITALS: BP 94/74; TEMP 97.7; O2SAT 93
[2023-10-06 04:00] VITALS: BP 95/72; TEMP 98.4; O2SAT 93
[2023-10-06 08:00] VITALS: BP 103/70; TEMP 97.9; O2SAT 94
[2023-10-06 09:46] LABS: CALCIUM, SERUM 8.3 mg/dL (8.5-10.1); CREATININE 1.6 mg/dL (0.6-1.3); MAGNESIUM 2.1 mg/dL (1.8-2.4); PHOSPHORUS 3.8 mg/dL (2.5-4.9); POTASSIUM 4.2 mmol/L (3.5-5.1)
[2023-10-06 10:33] LABS: BASOPHILS % (AUTO) 0.4 % (0.0-2.0); EOSINOPHILS # (AUTO) 0.2 K/uL (0.0-0.7); EOSINOPHILS % (AUTO) 4.6 % (0.0-6.0); HEMATOCRIT 41 % (39-51); LYMPHOCYTES # (AUTO) 0.7 K/uL (0.8-4.8); LYMPHOCYTES % (AUTO) 14.9 % (20.0-44.0); MEAN CORPUSCULAR HEMOGLOBIN 27 PG (26.0-33.0); MEAN CORPUSCULAR HGB CONC 32 g/dl (31.0-36.0); MEAN CORPUSCULAR VOLUME 83 fL (80-96); MONOCYTES # (AUTO) 0.3 K/uL (0.1-1.30); MONOCYTES % (AUTO) 6.1 % (2.0-12.0); NEUTROPHILS # (AUTO) 3.2 K/uL (1.8-8.9); PLATELET COUNT (AUTO) 174 K/uL (150-450); RED BLOOD CELL COUNT(AUTO) 4.93 MIL/uL (4.5-6.0); WHITE BLOOD COUNT (AUTO) 4.4 K/uL (4.3-11.0)
[2023-10-06 12:00] VITALS: BP 130/60; TEMP 97.9; O2SAT 95
[2023-10-06 16:00] VITALS: BP 106/83; TEMP 97.7; O2SAT 94
[2023-10-06 20:00] VITALS: BP 95/65; TEMP 98.5; O2SAT 94
[2023-10-07] VITALS (70 sets, daily range): BP systolic 76–126; BP diastolic 27–92; TEMP 97.8–100.4; O2SAT 70–100
[2023-10-07] MEDS: DOCUSATE SODIUM 250 MG CAPSULE PO PRN (01:21)
[2023-10-07] MEDS: DILTIAZEM HCL 25 MG IV ONE (06:03)
[2023-10-07] MEDS: DILTIAZEM HCL 25 MG IV IV ONE (06:11)
[2023-10-07] MEDS: DIGOXIN INJ 0.5 MG/2 ML AMPUL IV ONE ×3 (06:15→06:44)
[2023-10-07] MEDS: DIGOXIN INJ 0.5 MG/2 ML AMPUL ONE (06:20)
[2023-10-07] MEDS: IV NS 0.9% 250 ML IV ONE (06:30)
[2023-10-07] MEDS ORDERED: DoBUTamine 500 MG/250 ML PIGGYBACK IV ONE (09:30)
[2023-10-07] MEDS: DOBUTamine 500 MG in IV D5W 210 ML IV PRN (10:06)
[2023-10-07] MEDS: BUMETANIDE INJ 8 MG in IV NS 0.9% 48 ML IV ONE (10:51)
[2023-10-07 11:42] LABS: BASOPHILS % (AUTO) 0.7 % (0.0-2.0); EOSINOPHILS % (AUTO) 0.4 % (0.0-6.0); HEMATOCRIT 41 % (39-51); HEMOGLOBIN 13.2 g/dL (13.5-17.5); LYMPHOCYTES # (AUTO) 0.4 K/uL (0.8-4.8); LYMPHOCYTES % (AUTO) 10.8 % (20.0-44.0); MEAN CORPUSCULAR HEMOGLOBIN 27 PG (26.0-33.0); MEAN CORPUSCULAR HGB CONC 32 g/dl (31.0-36.0); MEAN CORPUSCULAR VOLUME 83 fL (80-96); MONOCYTES # (AUTO) 0.2 K/uL (0.1-1.30); MONOCYTES % (AUTO) 5.3 % (2.0-12.0); NEUTROPHILS # (AUTO) 3.4 K/uL (1.8-8.9); NEUTROPHILS % (AUTO) 82.8 % (43.0-81.0); PLATELET COUNT (AUTO) 161 K/uL (150-450); RED BLOOD CELL COUNT(AUTO) 4.95 MIL/uL (4.5-6.0); RED CELL DISTRIBUTION WIDTH 19.4 % (11.5-15.0); WHITE BLOOD COUNT (AUTO) 4.1 K/uL (4.3-11.0)
[2023-10-07 12:08] LABS: CALCIUM, SERUM 8.2 mg/dL (8.5-10.1); CREATININE 1.6 mg/dL (0.6-1.3); POTASSIUM 4.2 mmol/L (3.5-5.1)
[2023-10-07 12:15] LABS: ALBUMIN 2.3 g/dL (3.4-5.0); BILIRUBIN,TOTAL 1.1 mg/dL (0.2-1.0); MAGNESIUM 1.7 mg/dL (1.8-2.4); PHOSPHORUS 3.5 mg/dL (2.5-4.9); TOTAL PROTEIN, SERUM 6.6 g/dL (6.4-8.2)
[2023-10-08] VITALS (95 sets, daily range): BP systolic 81–157; BP diastolic 50–99; TEMP 98.6–100.1; O2SAT 88–100
[2023-10-08 05:58] LABS: BASOPHILS % (AUTO) 0.4 % (0.0-2.0); EOSINOPHILS % (AUTO) 0.2 % (0.0-6.0); HEMATOCRIT 43 % (39-51); HEMOGLOBIN 13.9 g/dL (13.5-17.5); LYMPHOCYTES # (AUTO) 0.5 K/uL (0.8-4.8); LYMPHOCYTES % (AUTO) 12.6 % (20.0-44.0); MEAN CORPUSCULAR HEMOGLOBIN 26 PG (26.0-33.0); MEAN CORPUSCULAR HGB CONC 32 g/dl (31.0-36.0); MEAN CORPUSCULAR VOLUME 82 fL (80-96); MONOCYTES # (AUTO) 0.2 K/uL (0.1-1.30); MONOCYTES % (AUTO) 4.2 % (2.0-12.0); NEUTROPHILS # (AUTO) 3.6 K/uL (1.8-8.9); NEUTROPHILS % (AUTO) 82.6 % (43.0-81.0); PLATELET COUNT (AUTO) 150 K/uL (150-450); RED BLOOD CELL COUNT(AUTO) 5.26 MIL/uL (4.5-6.0); RED CELL DISTRIBUTION WIDTH 19.4 % (11.5-15.0); WHITE BLOOD COUNT (AUTO) 4.3 K/uL (4.3-11.0)
[2023-10-08 06:00] LABS: ALBUMIN 2.5 g/dL (3.4-5.0); BILIRUBIN,TOTAL 1.6 mg/dL (0.2-1.0); CALCIUM, SERUM 8.2 mg/dL (8.5-10.1); CREATININE 1.3 mg/dL (0.6-1.3); MAGNESIUM 1.5 mg/dL (1.8-2.4); PHOSPHORUS 3.1 mg/dL (2.5-4.9); POTASSIUM 3.5 mmol/L (3.5-5.1); TOTAL PROTEIN, SERUM 7.1 g/dL (6.4-8.2)
[2023-10-08] MEDS: MAGNESIUM OXIDE 400 MG TABLET PO ONE (12:10)
[2023-10-08] MEDS: GLUCERNA SHAKE 237 ML CAN PO SCH (12:53)
[2023-10-08] MEDS: POTASSIUM CHLORIDE 20 MEQ TAB.PRT.SR PO ONE (13:02)
[2023-10-08] MEDS: FUROSEMIDE 20 MG/2 ML VIAL IV STA (13:02)
[2023-10-08] MEDS: POTASSIUM CL. PREMIX PERIPHER. 50 ML IV SCH (13:39)
[2023-10-08] MEDS ORDERED: MORPHINE SULFATE INJ 2 MG/ML DISP.SYRIN IV ONE (14:30)
[2023-10-08] MEDS: MORPHINE SULFATE INJ 2 MG/ML DISP.SYRIN IV PRN (20:16)
[2023-10-09] VITALS (78 sets, daily range): BP systolic 88–147; BP diastolic 52–121; TEMP 97.7–98.8; O2SAT 89–100
[2023-10-09 04:44] LABS: BASOPHILS % (AUTO) 0.3 % (0.0-2.0); EOSINOPHILS % (AUTO) 0.1 % (0.0-6.0); HEMATOCRIT 38 % (39-51); HEMOGLOBIN 12.3 g/dL (13.5-17.5); LYMPHOCYTES % (AUTO) 18.8 % (20.0-44.0); MEAN CORPUSCULAR HEMOGLOBIN 27 PG (26.0-33.0); MEAN CORPUSCULAR HGB CONC 32 g/dl (31.0-36.0); MEAN CORPUSCULAR VOLUME 83 fL (80-96); MONOCYTES # (AUTO) 0.2 K/uL (0.1-1.30); MONOCYTES % (AUTO) 4.5 % (2.0-12.0); NEUTROPHILS % (AUTO) 76.3 % (43.0-81.0); PLATELET COUNT (AUTO) 126 K/uL (150-450); RED CELL DISTRIBUTION WIDTH 19.3 % (11.5-15.0); WHITE BLOOD COUNT (AUTO) 5.2 K/uL (4.3-11.0)
[2023-10-09 05:17] LABS: CALCIUM, SERUM 7.7 mg/dL (8.5-10.1); CREATININE 1.2 mg/dL (0.6-1.3); MAGNESIUM 1.5 mg/dL (1.8-2.4); PHOSPHORUS 3.1 mg/dL (2.5-4.9); POTASSIUM 3.5 mmol/L (3.5-5.1)
[2023-10-09] MEDS: MAGNESIUM OXIDE 400 MG TABLET PO ONE (09:37)
[2023-10-09] MEDS: BUMETANIDE (1 MG) 1 MG TABLET PO SCH (16:51)
[2023-10-10] VITALS (25 sets, daily range): BP systolic 91–120; BP diastolic 63–81; TEMP 97.5–98.7; O2SAT 93–100
[2023-10-11] VITALS (11 sets, daily range): BP systolic 87–112; BP diastolic 52–78; TEMP 97.5–100; O2SAT 92–98
[2023-10-12 04:00] VITALS: BP 98/78; TEMP 98.2; O2SAT 91
[2023-10-12 06:53] LABS: BASOPHILS % (AUTO) 0.7 % (0.0-2.0); EOSINOPHILS # (AUTO) 0.2 K/uL (0.0-0.7); EOSINOPHILS % (AUTO) 4.3 % (0.0-6.0); HEMATOCRIT 42 % (39-51); HEMOGLOBIN 13.8 g/dL (13.5-17.5); LYMPHOCYTES # (AUTO) 1.2 K/uL (0.8-4.8); LYMPHOCYTES % (AUTO) 28.4 % (20.0-44.0); MEAN CORPUSCULAR HEMOGLOBIN 27 PG (26.0-33.0); MEAN CORPUSCULAR HGB CONC 33 g/dl (31.0-36.0); MEAN CORPUSCULAR VOLUME 82 fL (80-96); MONOCYTES # (AUTO) 0.3 K/uL (0.1-1.30); MONOCYTES % (AUTO) 6.9 % (2.0-12.0); NEUTROPHILS # (AUTO) 2.6 K/uL (1.8-8.9); NEUTROPHILS % (AUTO) 59.7 % (43.0-81.0); PLATELET COUNT (AUTO) 146 K/uL (150-450); RED BLOOD CELL COUNT(AUTO) 5.15 MIL/uL (4.5-6.0); WHITE BLOOD COUNT (AUTO) 4.3 K/uL (4.3-11.0)
[2023-10-12 07:13] LABS: CALCIUM, SERUM 7.6 mg/dL (8.5-10.1); CREATININE 0.9 mg/dL (0.6-1.3); MAGNESIUM 1.6 mg/dL (1.8-2.4); PHOSPHORUS 2.6 mg/dL (2.5-4.9); POTASSIUM 3.3 mmol/L (3.5-5.1)
[2023-10-12 08:00] VITALS: BP 102/87; TEMP 97.9; O2SAT 92
[2023-10-12] MEDS: POTASSIUM CHLORIDE 20 MEQ TAB.PRT.SR PO ONE (09:59)
[2023-10-12] MEDS: Magnesium 1GM/D5W 100ML PREMIX 100 ML IV SCH (10:00)
[2023-10-12] MEDS: DIGOXIN INJ 0.5 MG/2 ML AMPUL IV ONE (10:30)
[2023-10-12 12:08] VITALS: BP 108/77; TEMP 97.9; O2SAT 93
[2023-10-12] MEDS: DIGOXIN 0.125 MG TABLET PO SCH (13:25)
[2023-10-12 16:00] VITALS: BP 100/70; TEMP 98.1; O2SAT 93
[2023-10-12 16:09] VITALS: BP 105/70; TEMP 98.1; O2SAT 94
[2023-10-12 20:00] VITALS: BP 102/67; TEMP 97.9; O2SAT 93
[2023-10-13] VITALS: BP 94/67; TEMP 99.1; O2SAT 93
[2023-10-13 04:00] VITALS: BP 105/60; TEMP 97.3; O2SAT 97
[2023-10-13 07:27] LABS: BASOPHILS % (AUTO) 0.7 % (0.0-2.0); EOSINOPHILS # (AUTO) 0.3 K/uL (0.0-0.7); EOSINOPHILS % (AUTO) 5.6 % (0.0-6.0); HEMATOCRIT 44 % (39-51); HEMOGLOBIN 14.1 g/dL (13.5-17.5); LYMPHOCYTES # (AUTO) 1.2 K/uL (0.8-4.8); LYMPHOCYTES % (AUTO) 24.6 % (20.0-44.0); MEAN CORPUSCULAR HEMOGLOBIN 27 PG (26.0-33.0); MEAN CORPUSCULAR HGB CONC 32 g/dl (31.0-36.0); MEAN CORPUSCULAR VOLUME 82 fL (80-96); MONOCYTES # (AUTO) 0.3 K/uL (0.1-1.30); MONOCYTES % (AUTO) 6.3 % (2.0-12.0); NEUTROPHILS # (AUTO) 3.2 K/uL (1.8-8.9); NEUTROPHILS % (AUTO) 62.8 % (43.0-81.0); PLATELET COUNT (AUTO) 163 K/uL (150-450); RED BLOOD CELL COUNT(AUTO) 5.33 MIL/uL (4.5-6.0); RED CELL DISTRIBUTION WIDTH 19.2 % (11.5-15.0)
[2023-10-13 08:05] LABS: CALCIUM, SERUM 7.8 mg/dL (8.5-10.1); CREATININE 0.9 mg/dL (0.6-1.3); MAGNESIUM 1.9 mg/dL (1.8-2.4); PHOSPHORUS 2.6 mg/dL (2.5-4.9); POTASSIUM 3.7 mmol/L (3.5-5.1)
[2023-10-13 20:00] VITALS: BP 121/74; TEMP 98.5; O2SAT 99
[2023-10-14] VITALS: BP_SYST 90; BP_SYST 99; BP_DIAS 50; BP_DIAS 65; TEMP 98.2; O2SAT 96; O2SAT 98
[2023-10-14] MEDS: IV NS 0.9% 250 ML IV ONE (01:44)
[2023-10-14 07:00] VITALS: BP 108/73; TEMP 97.8; O2SAT 91
[2023-10-14 11:30] VITALS: BP 112/76; TEMP 97.4; O2SAT 92
[2023-10-14 20:00] VITALS: BP 96/71; TEMP 98; O2SAT 99
[2023-10-15 04:00] VITALS: BP 104/90; TEMP 98; O2SAT 100
[2023-10-15 08:00] VITALS: BP 108/77; TEMP 97.6; O2SAT 96
[2023-10-15 08:00] LABS: BASOPHILS % (AUTO) 0.8 % (0.0-2.0); EOSINOPHILS # (AUTO) 0.3 K/uL (0.0-0.7); EOSINOPHILS % (AUTO) 5.3 % (0.0-6.0); HEMATOCRIT 44 % (39-51); HEMOGLOBIN 14.6 g/dL (13.5-17.5); LYMPHOCYTES # (AUTO) 1.6 K/uL (0.8-4.8); LYMPHOCYTES % (AUTO) 27.3 % (20.0-44.0); MEAN CORPUSCULAR HEMOGLOBIN 27 PG (26.0-33.0); MEAN CORPUSCULAR HGB CONC 33 g/dl (31.0-36.0); MEAN CORPUSCULAR VOLUME 81 fL (80-96); MONOCYTES # (AUTO) 0.4 K/uL (0.1-1.30); MONOCYTES % (AUTO) 6.7 % (2.0-12.0); NEUTROPHILS # (AUTO) 3.5 K/uL (1.8-8.9); NEUTROPHILS % (AUTO) 59.9 % (43.0-81.0); PLATELET COUNT (AUTO) 228 K/uL (150-450); RED BLOOD CELL COUNT(AUTO) 5.44 MIL/uL (4.5-6.0); WHITE BLOOD COUNT (AUTO) 5.9 K/uL (4.3-11.0)
[2023-10-15 08:01] LABS: ALBUMIN 1.8 g/dL (3.4-5.0); BILIRUBIN,TOTAL 0.6 mg/dL (0.2-1.0); CALCIUM, SERUM 7.8 mg/dL (8.5-10.1); CREATININE 0.8 mg/dL (0.6-1.3); MAGNESIUM 1.5 mg/dL (1.8-2.4); PHOSPHORUS 3.6 mg/dL (2.5-4.9); TOTAL PROTEIN, SERUM 6.2 g/dL (6.4-8.2)
[2023-10-15] MEDS: MAGNESIUM OXIDE 400 MG TABLET PO ONE (10:17)
[2023-10-15 12:00] VITALS: BP 90/67; TEMP 98; O2SAT 94
[2023-10-15 16:00] VITALS: BP 100/79; TEMP 98.2; O2SAT 96
[2023-10-15 20:00] VITALS: BP 94/65; TEMP 97.9; O2SAT 95
[2023-10-16] VITALS: BP 132/96; TEMP 98.1; O2SAT 95
[2023-10-16 02:40] VITALS: O2SAT 95
[2023-10-16 20:00] VITALS: BP 95/63; TEMP 98.5; O2SAT 95
[2023-10-17] VITALS: BP 88/63; TEMP 97.2; O2SAT 95
[2023-10-17 02:12] VITALS: O2SAT 97
[2023-10-17 04:00] VITALS: BP 92/59; TEMP 97.3; O2SAT 97
[2023-10-17 07:00] VITALS: BP 93/70; TEMP 99.2; O2SAT 98
[2023-10-17 07:26] LABS: BASOPHILS # (AUTO) 0.1 K/uL (0.0-0.2); BASOPHILS % (AUTO) 1.2 % (0.0-2.0); EOSINOPHILS # (AUTO) 0.3 K/uL (0.0-0.7); EOSINOPHILS % (AUTO) 4.5 % (0.0-6.0); HEMATOCRIT 43 % (39-51); HEMOGLOBIN 13.6 g/dL (13.5-17.5); LYMPHOCYTES % (AUTO) 31.8 % (20.0-44.0); MEAN CORPUSCULAR HEMOGLOBIN 26 PG (26.0-33.0); MEAN CORPUSCULAR HGB CONC 32 g/dl (31.0-36.0); MEAN CORPUSCULAR VOLUME 82 fL (80-96); MONOCYTES # (AUTO) 0.5 K/uL (0.1-1.30); MONOCYTES % (AUTO) 8.2 % (2.0-12.0); NEUTROPHILS # (AUTO) 3.4 K/uL (1.8-8.9); NEUTROPHILS % (AUTO) 54.3 % (43.0-81.0); PLATELET COUNT (AUTO) 287 K/uL (150-450); RED BLOOD CELL COUNT(AUTO) 5.17 MIL/uL (4.5-6.0); RED CELL DISTRIBUTION WIDTH 19.4 % (11.5-15.0); WHITE BLOOD COUNT (AUTO) 6.2 K/uL (4.3-11.0)
[2023-10-17 09:00] LABS: CALCIUM, SERUM 7.8 mg/dL (8.5-10.1); MAGNESIUM 1.6 mg/dL (1.8-2.4); PHOSPHORUS 3.9 mg/dL (2.5-4.9); POTASSIUM 4.1 mmol/L (3.5-5.1)
[2023-10-17 16:00] VITALS: BP 104/71; TEMP 97.9; O2SAT 95
[2023-10-17] MEDS ORDERED: VENL37.55 PO (18:08)
[2023-10-17] MEDS ORDERED: METO50TA16 PO (18:08)
[2023-10-17] MEDS ORDERED: Aspirin Ec PO (18:08)
[2023-10-17] MEDS ORDERED: BUME1TAB8 PO (18:08)
[2023-10-17] MEDS ORDERED: Tamsulosin PO (18:08)
[2023-10-17] MEDS ORDERED: DIGO125T PO (18:08)
== END 2023-10-17 19:45 | DRG 194 ==
LOC: ER 19:18 → TELE 20:55 → ICU 10-02 13:24 → TELE1 10-04 14:38 → TELE-TD 10-04 21:01 → ICU 10-07 08:10 → TELE 10-10 18:22 → MED 10-17 10:42
PROVIDERS: ADMIT Nurse Practitioner Family; ATTEND Student in an Organized Health Care Education/Training Program
PROC: 05H933Z Insertion of Infusion Device into Right Brachial Vein, Percutaneous Approach (ICD-10-PCS; principal; 2023-09-29)
PROC: B54MZZA Ultrasonography of Right Upper Extremity Veins, Guidance (ICD-10-PCS; 2023-09-29)
PROC: 0W993ZZ Drainage of Right Pleural Cavity, Percutaneous Approach (ICD-10-PCS; 2023-10-05)
PROC: 0W9930Z Drainage of Right Pleural Cavity with Drainage Device, Percutaneous Approach (ICD-10-PCS; 2023-10-08)
DX: I13.0 Hypertensive heart and chronic kidney disease with heart failure and stage 1 through stage 4 chronic kidney disease, or unspecified chronic kidney disease (principal); J96.21 Acute and chronic respiratory failure with hypoxia; I21.A1 Myocardial infarction type 2; E44.0 Moderate protein-calorie malnutrition; D68.9 Coagulation defect, unspecified; E87.1 Hypo-osmolality and hyponatremia; I47.20 Ventricular tachycardia, unspecified; I48.19 Other persistent atrial fibrillation; I48.92 Unspecified atrial flutter; L03.115 Cellulitis of right lower limb; N17.9 Acute kidney failure, unspecified; I50.23 Acute on chronic systolic (congestive) heart failure; Z59.00 Homelessness unspecified; E87.5 Hyperkalemia; N18.9 Chronic kidney disease, unspecified; I87.2 Venous insufficiency (chronic) (peripheral); I25.10 Atherosclerotic heart disease of native coronary artery without angina pectoris; D64.9 Anemia, unspecified; E03.9 Hypothyroidism, unspecified; E78.5 Hyperlipidemia, unspecified; F15.10 Other stimulant abuse, uncomplicated; F32.A Depression, unspecified; F41.9 Anxiety disorder, unspecified; I42.0 Dilated cardiomyopathy; E80.6 Other disorders of bilirubin metabolism; Z91.199 Patient's noncompliance with other medical treatment and regimen due to unspecified reason; J90 Pleural effusion, not elsewhere classified; J44.9 Chronic obstructive pulmonary disease, unspecified; K76.1 Chronic passive congestion of liver; Z79.84 Long term (current) use of oral hypoglycemic drugs; Z79.899 Other long term (current) drug therapy; Z87.891 Personal history of nicotine dependence
CPT/HCPCS: 36415; 71045-TC; 75989; 76604-TC; 76770-TC; 80048-TC; 80053-TC; 80076-TC; 80202-TC; 81001; 82550-TC; 82570-TC; 82962-TC; 83735-TC; 83880; 83970; 84100-TC; 84155; 84165; 84300-TC; 84443-TC; 84484-TC; 85025-TC; 85730-TC; 87081-TC; 87102-TC; 88108-TC; 88305-TC; 88312-TC; 89051-TC; 93971-TC; 94760-TC; 94799-TC; 97110-TC; 97112-TC; 97116-TC; 97530-TC; 97535-TC; A4223; A4349; G0378; J0282; J1160; J1250; J1265; J1644; J1815; J1940; J2260; J2270; J3370; J3371; J3475; J3480; J3490; J7040; J7050; J7060

== ENCOUNTER 2023-10-22 13:35 | Emergency (ER) | payer OTHER ==
[~2023-10-22] VITALS: Ht 177.8 cm; Wt 82.1 kg
[~2023-10-22 13:35] MED LIST changes: +Aspirin Ec PO; +BUME1TAB8 PO; +DIGO125T PO; +METO50TA16 PO; +Tamsulosin PO; +VENL37.55 PO
[2023-10-22 13:38] VITALS: TEMP 98.4
[2023-10-22 14:35] LABS: BASOPHILS # (AUTO) 0.1 K/uL (0.0-0.2); BASOPHILS % (AUTO) 3.2 % (0.0-2.0); EOSINOPHILS # (AUTO) 0.1 K/uL (0.0-0.7); EOSINOPHILS % (AUTO) 2.7 % (0.0-6.0); HEMATOCRIT 41 % (39-51); LYMPHOCYTES # (AUTO) 1.2 K/uL (0.8-4.8); LYMPHOCYTES % (AUTO) 26.3 % (20.0-44.0); MEAN CORPUSCULAR HEMOGLOBIN 26 PG (26.0-33.0); MEAN CORPUSCULAR HGB CONC 32 g/dl (31.0-36.0); MEAN CORPUSCULAR VOLUME 82 fL (80-96); MONOCYTES # (AUTO) 0.4 K/uL (0.1-1.30); MONOCYTES % (AUTO) 8.3 % (2.0-12.0); NEUTROPHILS # (AUTO) 2.6 K/uL (1.8-8.9); NEUTROPHILS % (AUTO) 59.5 % (43.0-81.0); PLATELET COUNT (AUTO) 351 K/uL (150-450); RED BLOOD CELL COUNT(AUTO) 4.92 MIL/uL (4.5-6.0); RED CELL DISTRIBUTION WIDTH 19.7 % (11.5-15.0); WHITE BLOOD COUNT (AUTO) 4.4 K/uL (4.3-11.0)
[2023-10-22 14:43] LABS: CALCIUM, SERUM 7.3 mg/dL (8.5-10.1); CARBON DIOXIDE 29 mmol/L (21-32); CHLORIDE 112 mmol/L (98-107); CREATININE 0.9 mg/dL (0.6-1.3); GLUCOSE 138 mg/dL (74-106); POTASSIUM 3.1 mmol/L (3.5-5.1); SODIUM SERUM 145 mmol/L (136-145); UREA NITROGEN, BLOOD 27 mg/dL (7-18)
[2023-10-22] MEDS ORDERED: DILTIAZEM HCL CD 180 MG ONE (14:46)
[2023-10-22] MEDS ORDERED: METOPROLOL TARTRATE 50 MG TABLET ONE (14:47)
[2023-10-22] MEDS ORDERED: POTASSIUM CHLORIDE 20 MEQ TAB.PRT.SR PO ONE (14:49)
[2023-10-22] MEDS: DILTIAZEM HCL CD 180 MG PO ONE (15:00)
[2023-10-22] MEDS: POTASSIUM CHLORIDE 20 MEQ TAB.PRT.SR PO ONE (15:00)
[2023-10-22] MEDS: METOPROLOL TARTRATE 50 MG TABLET PO ONE (15:01)
[2023-10-22 18:47] VITALS: BP 98/66; O2SAT 97
== END 2023-10-22 15:20 | disposition home or self-care (01) ==
LOC: ER 13:42
DX: I48.20 Chronic atrial fibrillation, unspecified (principal); I11.0 Hypertensive heart disease with heart failure; I50.9 Heart failure, unspecified; E78.5 Hyperlipidemia, unspecified; F32.A Depression, unspecified; Z98.890 Other specified postprocedural states; Z79.899 Other long term (current) drug therapy; Z59.00 Homelessness unspecified; Z88.1 Allergy status to other antibiotic agents
CPT/HCPCS: 36415; 71045-TC; 80048-TC; 84484-TC; 85025-TC